=== PATIENT | female | born 1935 | race Caucasian/White ===

== ENCOUNTER 2017-06-20 08:15 | Inpatient (IN) | payer OTHER, MEDICAID ==
[~2017-06-20] VITALS: Ht 167.6 cm; Wt 75.0 kg
[2017-06-20] VITALS (7 sets, daily range): BP systolic 130–169; BP diastolic 68–88; PULSE 58–71; RESP 16–19; TEMP 98.3; Ht 167.6 cm; Wt 75.0 kg
[~2017-06-20 08:15] MED LIST: ASPI-535 PO; LISI40TA9 PO; METF850T PO; OSLT75C PO
[2017-06-20] MEDS ORDERED: SOD CHLORIDE 0.9% 1,000 ML IV STA (08:29)
--- NOTE | 2017-06-20 08:49 | RADRPT ---
PROCEDURE: XR Chest. CLINICAL INDICATION: Syncope. TECHNIQUE: Single frontal view. COMPARISON: 10/01/2014. FINDINGS: The lungs are clear. The heart size is normal. There is calcification in the aorta consistent with atherosclerosis. There is no pleural effusion. There is no pneumothorax. IMPRESSION: 1. Atherosclerosis. 2. Otherwise normal chest radiograph. RPTAT: QQ .Cody Rubio MD, MD Date Time Electronically viewed and signed by .Cody Rubio MD, on 06/20/2017 08:48 .R/
[2017-06-20 09:13] LABS: BASOPHILS % 0.4 % (0.0-2.0); EOSINOPHILS # 0.2 10^3/ul (0.0-0.5); EOSINOPHILS % 3.6 % (0.0-7.0); HEMATOCRIT 36.2 % (37.0-47.0); HEMOGLOBIN 12.3 g/dl (12.0-16.0); LYMPHOCYTES # 0.9 10^3/ul (0.8-2.9); LYMPHOCYTES % 16.8 % (15.0-51.0); MEAN CORPUSCULAR HEMOGLOBIN 31.1 pg (29.0-33.0); MEAN CORPUSCULAR VOLUME 91.4 fl (82.0-101.0); MEAN PLATELET VOLUME 11.3 fl (7.4-10.4); MONOCYTE # 0.4 10^3/ul (0.3-0.9); MONOCYTES % 7.7 % (0.0-11.0); NEUTROPHIL # 3.8 10^3/ul (1.6-7.5); NEUTROPHILS % 71.1 % (39.0-77.0); PLATELET COUNT 177 10^3/UL (140-415); RED BLOOD COUNT 3.96 10^6/ul (4.20-5.40); RED CELL DISTRIBUTION WIDTH 12.1 % (11.5-14.5); WHITE BLOOD COUNT 5.3 10^3/ul (4.8-10.8)
[2017-06-20 09:31] LABS: ANION GAP 15 (8-16); BLOOD UREA NITROGEN 24 mg/dl (7-20); CALCIUM 9.1 mg/dl (8.4-10.2); CARBON DIOXIDE 26 mmol/L (21-31); CHLORIDE 100 mmol/L (97-110); CREATININE 1.23 mg/dl (0.44-1.00); GLUCOSE 177 mg/dl (70-220); POTASSIUM 3.7 mmol/L (3.5-5.1); SODIUM 137 mmol/L (135-144)
[2017-06-20 09:43] LABS: TROPONIN-I < 0.012 ng/ml (0.00-0.12)
--- NOTE | 2017-06-20 09:51 | RADRPT ---
PROCEDURE: CT Brain without contrast. CLINICAL INDICATION: Syncope. TECHNIQUE: A CT of the brain was performed on multidetector high-resolution CT scanner utilizing a xial sections from the skull base through the vertex without contrast. The scan was reviewed in sof t tissue brain and high frequency resolution bone algorithm windows. Images were reviewed on a high -resolution PACS workstation. One or more the following does reduction techniques were utilized: Aut omated exposure control, adjustment of the mA/ or kV according to patient's size, or use of iterativ e reconstruction technique. The exam CTDI = 45.01 mGy and the DLP = 720.23 mGy-cm. COMPARISON: Brain CT 10/01/2014. FINDINGS: The ventricles and sulci are mildly prominent indicative of volume loss. There is no intracranial h emorrhage, mass effect or midline shift. No abnormal intra-axial or extra-axial fluid collections a re seen. The uribe/white matter differentiation is preserved. There is prominent left retrocerebellar CSF space which may represent asymmetric volume loss versus arachnoid cyst. There are mild scattered foci of hypoattenuation in the white matter, which are nonspecific in etiol ogy but likely reflect chronic small vessel ischemic changes. There are mild intracranial vascular calcifications consistent with atherosclerosis. The visualized paranasal sinuses demonstrate mild sc attered mucosal thickening. The mastoid air cells are essentially clear. IMPRESSION: 1. No acute intracranial hemorrhage, transcortical infarction or mass effect. 2. Mild intracranial atherosclerosis and chronic small vessel ischemic changes. 3. Prominent left retrocerebellar CSF space which may represent asymmetric volume loss versus arach noid cyst. 4. Mild generalized cerebral volume loss. RPTAT: JJ .Lavern Zhu MD, MD Date Time Electronically viewed and signed by .Lavern Zhu MD, MD on 06/20/2017 09:51 .N/
[2017-06-20] MEDS ORDERED: ACETAMINOPHEN 325 MG TAB PO PRN (10:00)
[2017-06-20] MEDS ORDERED: ONDANSETRON 4 MG INJ IV PRN ×2 (10:00→15:00)
--- NOTE | 2017-06-20 13:06 | ERD ---
ER Documentation Chief Complaint Chief Complaint Patient SCARLET with complaint of Syncope and Diarrhea x 1 week HPI Patient is an 81-year-old female with diabetes who presents with syncope. The patient was brought in by ambulance. She passed out at home. She has been sick with diarrhea for the past week and has not been eating as much. She hit her head on a lamp when she fell and has a headache. The daughter says "she passed out 3 times today". She has been feeling dizzy. She has no fevers. Her primary doctor is Dr. Gutierrez. ROS All systems reviewed and are negative except as per history of present illness. Medications Home Meds Active Scripts Aspirin Ec (Aspir 81) 81 Mg Tablet.dr, 81 MG PO DAILY for 30 Days, TAB Prov:SYLVIE WU M. 10/04/14 Lisinopril* (Lisinopril*) 40 Mg Tablet, 40 MG PO DAILY for 30 Days, TAB Prov:SYLVIE WU M. 10/04/14 Metformin Hcl* (Metformin Hcl*) 850 Mg Tablet, 850 MG PO WITH BREAKFAST DINNE for 30 Days, TAB Prov:SYLVIE WU . 10/04/14 Discontinued Scripts Oseltamivir Phosphate* (Tamiflu*) 75 Mg Cap, 75 MG PO BID for 3 Days Prov:BRYCEERIKAARNALDO . 10/04/14 Allergies Allergies: Coded Allergies: No Known Allergies (Verified Allergy, Unknown, 10/01/14) PMhx/Soc History of Surgery: Yes (LEFT FORARM APPENDECTOMY ) Anesthesia Reaction: No Hx Neurological Disorder: No Hx Respiratory Disorders: No Hx Cardiac Disorders: Yes (htn) Hx Psychiatric Problems: No Hx Miscellaneous Medical Probl: No (dm, HTN) Hx Alcohol Use: No Hx Substance Use: No Hx Tobacco Use: No Smoking Status: Current every day smoker FmHx Family History: No diabetes Physical Exam Vitals Vital Signs Date Time Temp Pulse Resp B/P Pulse Ox O2 Delivery O2 Flow Rate FiO2 06/20/17 09:30 98.3 68 20 108/68 98 Room Air 06/20/17 08:30 98.3 67 20 158/46 98 Room Air 06/20/17 08:15 98.0 60 20 158/46 100 Physical Exam Const: No acute distress Head: Atraumatic Eyes: Normal Conjunctiva ENT: Normal External Ears, Nose and Mouth. Neck: Full range of motion..~ No meningismus. Resp: Clear to auscultation bilaterally Cardio: Regular rate and rhythm, no murmurs Abd: Soft, non tender, non distended. Normal bowel sounds Skin: No petechiae or rashes Back: No midline or flank tenderness Ext: No cyanosis, or edema Neur: Awake and alert Psych: Normal Mood and Affect Result Diagram: 06/20/17 0840 06/20/17 0840 Results 24 hrs Laboratory Tests Test 06/20/17 08:40 06/20/17 08:42 White Blood Count 5.310^3/ul Red Blood Count 3.9610^6/ul Hemoglobin 12.3g/dl Hematocrit 36.2% Mean Corpuscular Volume 91.4fl Mean Corpuscular Hemoglobin 31.1pg Mean Corpuscular Hemoglobin Concent 34.0g/dl Red Cell Distribution Width 12.1% Platelet Count 30106^3/UL Mean Platelet Volume 11.3fl Neutrophils % 71.1% Lymphocytes % 16.8% Monocytes % 7.7% Eosinophils % 3.6% Basophils % 0.4% Nucleated Red Blood Cells % 0.0/100WBC Neutrophils # 3.810^3/ul Lymphocytes # 0.910^3/ul Monocytes # 0.410^3/ul Eosinophils # 0.210^3/ul Basophils # 0.010^3/ul Nucleated Red Blood Cells # 0.010^3/ul Sodium Level 137mmol/L Potassium Level 3.7mmol/L Chloride Level 100mmol/L Carbon Dioxide Level 26mmol/L Anion Gap 15 Blood Urea Nitrogen 24mg/dl Creatinine 1.23mg/dl Glucose Level 177mg/dl Calcium Level 9.1mg/dl Troponin I < 0.012ng/ml Bedside Glucose 197mg/dL Current Medications Medications (Trade) Dose Ordered Sig/Chandler Route PRN Reason Start Time Stop Time Status Last Admin Dose Admin Sodium Chloride (NS) 1,000 ml @ 1,000 mls/hr Q1H STAT IV 06/20/17 08:29 06/20/17 09:28 DC 06/20/17 08:33 Procedures/MDM EKG read by me: Rate/Rhythm: Regular rate and rhythm at a normal rate Intervals: Normal Impression: No evidence of ischemia or arrhythmia CT brain shows no hemorrhage per radiology. Patient is an 81-year-old female presents with syncope. She will be admitted for fluid resuscitation as I believe the syncope is likely related to dehydration from diarrhea. She will need monitoring to look for ventricular fibrillation or ventricular tachycardia. The patient will be admitted to the panel team. Departure Diagnosis: Primary Impression: Syncope Syncope type: unspecified Qualified Code: R55 - Syncope, unspecified syncope type Condition: Stable YADIEL JOHNSTON MD Jun 20, 2017 13:06
[2017-06-20] MEDS ORDERED: DEXTROSE 50% 50 ML SYRINGE IV PRN ×2 (15:00)
[2017-06-20] MEDS ORDERED: HYDROCODONE/APAP (5/325) TAB PO PRN (15:00)
[2017-06-20] MEDS ORDERED: DOCUSATE SODIUM 100 MG CAP PO PRN (15:00)
[2017-06-20] MEDS ORDERED: ACETAMINOPHEN 650 MG SUPP PR PRN (15:00)
[2017-06-20] MEDS ORDERED: GLUCOSE GEL 15 GRAM TUBE PO PRN ×2 (15:00)
[2017-06-20] MEDS ORDERED: NACL 0.9% 3 ML SYG IV SCH (15:00)
[2017-06-20] MEDS ORDERED: GLUCOSE GEL 15 GRAM TUBE BUCCAL PRN (15:00)
[2017-06-20] MEDS ORDERED: GLUCAGON 1 MG INJ IM PRN (15:00)
--- NOTE | 2017-06-20 15:00 | HP ---
Date/Time of Note Date/Time of Note DATE: 06/20/17 TIME: 14:54 Assessment/Plan VTE Prophylaxis VTE Prophylaxis Intervention: SCD's Assessment/Plan Chief Complaint/Hosp Course 9-year-old female, presenting to the emergency room with dizziness and associated fall 3 episodes over the next 24 hours. 1. Dizziness/Near syncope with fall [address] unremarkable. Initial troponin negative. -At this time, it seems her symptoms are most likely secondary to orthostatic hypotension/possible dehydration vs possible hypoglycemic events as she was not able to eat or drink much last week 2/2 diarrhea unless proven otherwise. -Obtain orthostatic vital signs series. -Obtain 2D echocardiogram, serial troponin and EKG in a.m. -Start IV hydration. 2. Essential hypertension. -Resume home medications. Needs careful review of BP meds dose/frequency on discharge as there is concern of possible positional hypotension episodes. 3. Hyperglycemia with type 2 diabetes. -Add A1c to labs. Accu-Cheks/ISS mild scale/Lantus based on weight. Will monitor glucose trends and will titrate as indicated. 4. Acute kidney injury versus chronic kidney disease. This is likely secondary to possible dehydration. -For now, we will treat with IV fluids and reassess renal function in the morning. -Nephrology consult if indicated. 5.Recent hx of diarrhea/gastroenteritis. No present issues. Prophylaxis: SCDs/at this time patient does not need GI prophylaxis as she is going to be started on a diet. Further recommendations depend on hospital course. Approximately 60 minutes was spent on this history and physical. Patient was seen in collaboration with Dr. Castle. Problems: HPI/ROS Admit Date/Time Admit Date/Time Jun 20, 2017 at 09:39 Hx of Present Illness This is a 79-year-old female with a past medical history of type 2 diabetes, hypertension, who presented to the emergency room after she fell 3 times in the previous 24 hours with dizziness.She reports "being passed out".She is not sure of she had loss of consciousness. Patient has not started any new medicines or engaged in any new activities lately. She has been sick with diarrhea last week and she was not able to drink or eat as much at home. She denied any change in vision, slurred speech, headache, weakness, numbness, or tingling. She denied hitting her head. But she reported hitting her right arm on nearby lamp without any resultant pain and relieved. Patient denied hearing loss, tinnitus, or spinning sensation. She denied chest pain, palpitation, shortness of breath, nausea, vomiting, abdominal pain or cough. Patient denied any fever or chills. Patient had multiple previous episodes of similar complaints with fall in the past for which she was treated for near syncopal events. Initial workup showed negative CT of head for any acute intracranial hemorrhage , infarction or mass-effect. Chest x-ray stable. Vital signs with slightly elevated blood pressure 158/46, otherwise unremarkable. Initial labs unremarkable except for elevated BUN 24/creatinine 1.23. Her initial troponin also was negative. Patient had an arrival blood glucose of 197. EKG without any acute changes. Patient was admitted for further evaluation. ROS 12 point review of system was assessed and is negative other than what is mentioned in the HPI. PMH/Family/Social Past Medical History See HPI Past Surgical History Laparoscopic cholecystectomy. Social History Patient denied history of alcohol, smoking or illicit drug use. Smoking Status: Never smoker Exam/Review of Systems Vital Signs Vitals Vital Signs Date Time Temp Pulse Resp B/P Pulse Ox O2 Delivery O2 Flow Rate FiO2 06/20/17 11:00 98.3 62 20 109/52 99 Room Air Exam Exam General: Well developed,adequately built, female not in any acute distress . HEENT: Normocephalic, Atraumatic, No laceration or hematoma; Eyes: PEERL, Conjunctiva clear, Anicteric sclera Neck: Supple without any lymphadenopathy, nontender, no JVD, no carotid bruits, trachea midline, no thyromegaly Cardiac: S1, S2 auscultated, regular rhythm and rate, no mumurs or gallop Pulmonary: Normal respiratory effort. Chest clear to auscultation bilaterally, no adventitious breath sounds GI: Abdomen normal to inspection. Soft, non tender, non- distended, no masses, no rebound tenderness or guarding. Bowel sounds active on all four quadrants Genitourinary: Deferred Extremities: No cyanosis, clubbing, or edema. Pulses [2+] bilaterally. Full ROM on all four extremities. No focal weakness appreciated. Neurologic: Alert to person, place, time, and situation. Affect appropriate, intact sensation. Skin: Clean,dry, and intact. No ecchymosis, no rashes, or lesions Labs Result Diagram: 06/20/17 0840 06/20/17 0840 Medications Medications Current Medications Aspirin (Halfprin) 81 mg DAILY PO ; Start 06/21/17 at 09:00 Lisinopril (Zestril) 40 mg DAILY PO ; Start 06/21/17 at 09:00 Ondansetron HCl (Zofran Inj) 4 mg Q6H PRN IV NAUSEA AND/OR VOMITING; Start at 15:00; Status UNV Acetaminophen (Tylenol Tab) 650 mg Q6H PRN PO PAIN LEVEL 1-3 OR FEVER; Start 06/20/17 at 15:00; Status UNV Acetaminophen (Tylenol Supp) 650 mg Q6H PRN NV PAIN LEVEL 1-3 OR FEVER; Start 06/20/17 at 15:00; Status UNV Acetaminophen/ Hydrocodone Bitart ([place] (5/325)) 1 tab Q6H PRN PO MODERATE PAIN LEVEL 4-6; Start 06/20/17 at 15:00; Status UNV Docusate Sodium (Colace) 100 mg Q12H PRN PO CONSTIPATION; Start 06/20/17 at 15 :00; Status UNV Miscellaneous Information (* Miscellaneous Pharmacy Order) Discontinue current oral sulfonylur... ONCE ONCE XX ; Start 06/20/17 at 15:00; Stop 06/20/17 at 15:01; Status UNV Diagnostic Test (Pha) (Accu-Chek) 1 ea 02 XX ; Start 06/21/17 at 02:00; Status UNV Insulin Glargine (Lantus) 11 unit DAILY@08 SC ; Start 06/21/17 at 08:00; Status UNV Miscellaneous Information (* Miscellaneous Pharmacy Order) HYPOGLYCEMIA PROTOCOL w... ONCE ONCE XX ; Start 06/20/17 at 15:00; Stop 06/20/17 at 15:01 ; Status UNV Miscellaneous Information (* Miscellaneous Pharmacy Order) Discontinue all previ... ONCE ONCE XX ; Start 06/20/17 at 15:00; Stop 06/20/17 at 15:01; Status UNV Meclizine HCl (Antivert) 12.5 mg TID PO ; Start 06/20/17 at 21:00; Status UNV Diagnostic Test (Pha) (Accu-Chek) 1 ea 02 XX ; Start 06/21/17 at 02:00; Status DANE BEASLEY NP Jun 20, 2017 15:00
[2017-06-20 16:40] LABS: CHOL/HDL RATIO 1.6 RATIO; CREATINE KINASE 87 IU/L (23-200)
[2017-06-20 17:02] LABS: TROPONIN-I < 0.012 ng/ml (0.00-0.12)
[2017-06-20 17:12] LABS: THYROID STIMULATING HORMONE 1.06 MIU/L (0.465-4.680)
[2017-06-20] MEDS: INSULIN ASPART [NOVOLOG] 3 ML PEN SC SCH ×2 (18:45→20:31)
[2017-06-20] MEDS: SOD CHLORIDE 0.9% 1,000 ML IV SCH (20:20)
[2017-06-20] MEDS ORDERED: MECLIZINE 12.5 MG TAB PO SCH (21:00)
[2017-06-20 21:29] LABS: CREATINE KINASE 88 IU/L (23-200)
[2017-06-20 21:49] LABS: TROPONIN-I < 0.012 ng/ml (0.00-0.12)
[2017-06-21] VITALS (13 sets, daily range): BP systolic 90–144; BP diastolic 49–74; PULSE 52–73; RESP 16–18
[2017-06-21] MEDS ORDERED: ACCU-CHEK XX SCH (02:00)
[2017-06-21] MEDS: ACCU-CHEK XX SCH (02:58)
[2017-06-21] MEDS: SOD CHLORIDE 0.9% 1,000 ML IV SCH ×2 (04:20→17:40)
[2017-06-21 06:57] LABS: BASOPHILS % 0.9 % (0.0-2.0); EOSINOPHILS # 0.3 10^3/ul (0.0-0.5); EOSINOPHILS % 6.3 % (0.0-7.0); HEMATOCRIT 33.5 % (37.0-47.0); HEMOGLOBIN 11.1 g/dl (12.0-16.0); LYMPHOCYTES # 1.3 10^3/ul (0.8-2.9); LYMPHOCYTES % 29.4 % (15.0-51.0); MEAN CORPUSCULAR HEMOGLOBIN 30.6 pg (29.0-33.0); MEAN CORPUSCULAR HGB CONC 33.1 g/dl (32.0-37.0); MEAN CORPUSCULAR VOLUME 92.3 fl (82.0-101.0); MEAN PLATELET VOLUME 10.9 fl (7.4-10.4); MONOCYTE # 0.5 10^3/ul (0.3-0.9); MONOCYTES % 11.3 % (0.0-11.0); NEUTROPHIL # 2.2 10^3/ul (1.6-7.5); NEUTROPHILS % 51.9 % (39.0-77.0); PLATELET COUNT 159 10^3/UL (140-415); RED BLOOD COUNT 3.63 10^6/ul (4.20-5.40); RED CELL DISTRIBUTION WIDTH 12.6 % (11.5-14.5); WHITE BLOOD COUNT 4.3 10^3/ul (4.8-10.8)
[2017-06-21 07:47] LABS: ALBUMIN 3.7 g/dl (3.3-4.9); ALBUMIN/GLOBULIN RATIO 1.48; BILIRUBIN,INDIRECT 0.3 mg/dl (0-1.1); BILIRUBIN,TOTAL 0.3 mg/dl (0.2-1.3); CALCIUM 8.4 mg/dl (8.4-10.2); CREATININE 0.82 mg/dl (0.44-1.00); MAGNESIUM 1.7 mg/dl (1.7-2.5); PHOSPHORUS 3.5 mg/dl (2.5-4.9); POTASSIUM 3.5 mmol/L (3.5-5.1); TOTAL PROTEIN 6.2 g/dl (6.1-8.1)
[2017-06-21] MEDS: INSULIN ASPART [NOVOLOG] 3 ML PEN SC SCH ×4 (07:55→20:27)
[2017-06-21] MEDS ORDERED: INSULIN GLARGINE [LANtus] 3 ML PEN SC SCH (08:00)
[2017-06-21] MEDS: ASPIRIN (EC) 81 MG TAB PO SCH (08:43)
[2017-06-21] MEDS: LISINOPRIL 20 MG TAB PO SCH (08:43)
[2017-06-21] MEDS: ACETAMINOPHEN 325 MG TAB PO PRN ×2 (10:17→19:34)
--- NOTE | 2017-06-21 10:24 | DS ---
Date/Time of Note Date/Time of Note DATE: 06/21/17 TIME: 10:22 Discharge Summary Admission/Discharge Info Admit Date/Time Jun 20, 2017 at 09:39 Discharge Date/Time June 21, 2017 Discharge Diagnosis Syncope due to dehydration secondary to gastroenteritis; diabetes mellitus type 2; essential hypertension; status post closed head trauma Patient Condition: Fair Procedures CT scan brain; IV hydration; Hx of Present Illness This is a 79-year-old female with a past medical history of type 2 diabetes, hypertension, who presented to the emergency room after she fell 3 times in the previous 24 hours with dizziness.She reports "being passed out".She is not sure of she had loss of consciousness. Patient has not started any new medicines or engaged in any new activities lately. She has been sick with diarrhea last week and she was not able to drink or eat as much at home. She denied any change in vision, slurred speech, headache, weakness, numbness, or tingling. She denied hitting her head. But she reported hitting her right arm on nearby lamp without any resultant pain and relieved. Patient denied hearing loss, tinnitus, or spinning sensation. She denied chest pain, palpitation, shortness of breath, nausea, vomiting, abdominal pain or cough. Patient denied any fever or chills. Patient had multiple previous episodes of similar complaints with fall in the past for which she was treated for near syncopal events. Initial workup showed negative CT of head for any acute intracranial hemorrhage , infarction or mass-effect. Chest x-ray stable. Vital signs with slightly elevated blood pressure 158/46, otherwise unremarkable. Initial labs unremarkable except for elevated BUN 24/creatinine 1.23. Her initial troponin also was negative. Patient had an arrival blood glucose of 197. EKG without any acute changes. Patient was admitted for further evaluation. Hospital Course 81-year-old female, presenting to the emergency room with dizziness and associated fall 3 episodes over the next 24 hours. 1. Dizziness/Near syncope with fall [address] unremarkable. Initial troponin negative. -At this time, it seems her symptoms are most likely secondary to orthostatic hypotension/possible dehydration vs possible hypoglycemic events as she was not able to eat or drink much last week 2/2 diarrhea unless proven otherwise. -Obtain orthostatic vital signs series. -Obtain 2D echocardiogram, serial troponin and EKG in a.m. -Start IV hydration. 2. Essential hypertension. -Resume home medications. Needs careful review of BP meds dose/frequency on discharge as there is concern of possible positional hypotension episodes. 3. Hyperglycemia with type 2 diabetes. -Add A1c to labs. Accu-Cheks/ISS mild scale/Lantus based on weight. Will monitor glucose trends and will titrate as indicated. 4. Acute kidney injury versus chronic kidney disease. This is likely secondary to possible dehydration. -For now, we will treat with IV fluids and reassess renal function in the morning. -Nephrology consult if indicated. 5.Recent hx of diarrhea/gastroenteritis. No present issues. Prophylaxis: SCDs/at this time patient does not need GI prophylaxis as she is going to be started on a diet. Further recommendations depend on hospital course. Approximately 60 minutes was spent on this history and physical. Patient was seen in collaboration with Dr. Castle. 81-year-old female. She reports that her GI tract symptoms have already resolved. She is feeling significantly better and is now able to get up and move around. She does still have headache after a closed head trauma. Please see the negative CT scan report. At this time due to her being improved she is stable for discharge in improved condition as compared to the time of admission. She has good rehabilitation potential she has no known communicable diseases she is not a hazard to herself or others competent for medical decision -making. She will follow-up with her primary care physician in her [employer] healthcare plan. In 1 week. Home Meds Active Scripts Aspirin Ec (Aspir 81) 81 Mg Tablet.dr, 81 MG PO DAILY for 30 Days, TAB Prov:SYLVIE WU 10/04/14 Lisinopril* (Lisinopril*) 40 Mg Tablet, 40 MG PO DAILY for 30 Days, TAB Prov:SYLVIE WU. 10/04/14 Metformin Hcl* (Metformin Hcl*) 850 Mg Tablet, 850 MG PO WITH BREAKFAST DINNE for 30 Days, TAB Prov:SYLVIE WU. 10/04/14 Discontinued Scripts Oseltamivir Phosphate* (Tamiflu*) 75 Mg Cap, 75 MG PO BID for 3 Days Prov:SYLVIE WU 10/04/14 Primary Care Provider Not On Staff Doctor Time spent on discharge: > 30 minutes Pending Labs Laboratory Tests Test 06/20/17 15:18 06/20/17 17:57 06/20/17 20:22 06/20/17 20:48 Hemoglobin A1c 7.0% (0-5.9) Creatine Kinase 87IU/L (23-200) 88IU/L (23-200) Creatine Kinase Index 2.0 1.8 Creatinine Kinase MB (Mass) 1.70ng/ml (0.0-2.4) 1.60ng/ml (0.0-2.4) Troponin I < 0.012ng/ml (0.00-0.12) < 0.012ng/ml (0.00-0.12) Triglycerides Level 115mg/dl (0-149) Cholesterol Level 69mg/dl (100-200) LDL Cholesterol, Calculated 5mg/dl HDL Cholesterol 41mg/dl (33-92) Cholesterol/HDL Ratio 1.6RATIO Thyroid Stimulating Hormone (TSH) 1.060MIU/L (0.465-4.680) Bedside Glucose 270mg/dL (70-220) 188mg/dL (70-220) Test 06/21/17 02:53 06/21/17 06:23 06/21/17 08:41 Bedside Glucose 77mg/dL (70-220) 86mg/dL (70-220) White Blood Count 4.310^3/ul (4.8-10.8) Red Blood Count 3.6310^6/ul (4.20-5.40) Hemoglobin 11.1g/dl (12.0-16.0) Hematocrit 33.5% (37.0-47.0) Mean Corpuscular Volume 92.3fl (82.0-101.0) Mean Corpuscular Hemoglobin 30.6pg (29.0-33.0) Mean Corpuscular Hemoglobin Concent 33.1g/dl (32.0-37.0) Red Cell Distribution Width 12.6% (11.5-14.5) Platelet Count 46437^3/UL (140-415) Mean Platelet Volume 10.9fl (7.4-10.4) Neutrophils % 51.9% (39.0-77.0) Lymphocytes % 29.4% (15.0-51.0) Monocytes % 11.3% (0.0-11.0) Eosinophils % 6.3% (0.0-7.0) Basophils % 0.9% (0.0-2.0) Nucleated Red Blood Cells % 0.0/100WBC (0.0-0.0) Neutrophils # 2.210^3/ul (1.6-7.5) Lymphocytes # 1.310^3/ul (0.8-2.9) Monocytes # 0.510^3/ul (0.3-0.9) Eosinophils # 0.310^3/ul (0.0-0.5) Basophils # 0.010^3/ul (0.0-0.1) Nucleated Red Blood Cells # 0.010^3/ul (0.0-0.0) Sodium Level 143mmol/L (135-144) Potassium Level 3.5mmol/L (3.5-5.1) Chloride Level 108mmol/L (97-110) Carbon Dioxide Level 26mmol/L (21-31) Anion Gap 13 (8-16) Blood Urea Nitrogen 13mg/dl (7-20) Creatinine 0.82mg/dl (0.44-1.00) Glucose Level 75mg/dl (70-220) Calcium Level 8.4mg/dl (8.4-10.2) Phosphorus Level 3.5mg/dl (2.5-4.9) Magnesium Level 1.7mg/dl (1.7-2.5) Total Bilirubin 0.3mg/dl (0.2-1.3) Direct Bilirubin 0.00mg/dl (0.00-0.20) Indirect Bilirubin 0.3mg/dl (0-1.1) Aspartate Amino Transf (AST/SGOT) 20IU/L (15-46) Alanine Aminotransferase (ALT/SGPT) 28IU/L (13-69) Alkaline Phosphatase 54IU/L (42-121) Total Protein 6.2g/dl (6.1-8.1) Albumin 3.7g/dl (3.3-4.9) Globulin 2.50g/dl (1.3-3.2) Albumin/Globulin Ratio 1.48 AJAY MEDELLIN MD Jun 21, 2017 10:24
--- NOTE | 2017-06-21 10:25 | PDOCDIS ---
Discharge Instructions DIAGNOSIS Discharge Diagnosis Syncope due to dehydration secondary to gastroenteritis; diabetes mellitus type 2; essential hypertension; status post closed head trauma CONDITION Patient Condition: Fair HOME CARE INSTRUCTIONS: Special Diet: Diabetic diet ACTIVITY: Activity Restrictions: Slowly Increase Activity Do not operate Power Tool FOLLOW UP/APPOINTMENTS Follow-up Plan With primary care physician in 1 week SCHOOL/WORK RELEASE May return to School/Work with: With Restrictions AJAY MEDELLIN MD Jun 21, 2017 10:25
[2017-06-21] MEDS ORDERED: LACTATED RINGER'S 500 ML IV ONE (10:30)
--- NOTE | 2017-06-21 12:56 | RADRPT ---
Vent Rate: 58 bpm RR Interval: 0 msec IL Interval: 190 msec QRS Duration: 98 msec QT Interval: 430 msec QTC Interval: 422 msec P-R-T [place]: 55 - 36 - 106 degrees Sinus bradycardia Abnormal QRS-T angle, consider primary T wave abnormality Abnormal ECG Electronically Signed By: Edy Pierre [id number]
--- NOTE | 2017-06-21 16:24 | RADRPT ---
Echocardiogram Report Patient Name: VEE NUNEZ Gender: Female Date: 1935 Study Date: 20-Jun-2017 Credit Authorizer: [facility] Location: 3303-A Ref. Physician: DANE NAVARRO Quality: Adequate Procedures: Transthoracic echocardiogram with complete 2D, M-Mode, and doppler examination. Indications: Dizziness. 2D/M Mode Doppler Measurement Value Normal Ranges Measurement Value Normal Ranges LVIDd 2D 3.7 3.5 - 5.6 cm AV Peak [place] 1.2 m/sec LVIDs 2D 2.4 2.1 - 4.1 cm AV Peak PG 6.0 mmHg FS 2D 34.8 % LVOT Peak [place] 0.8 m/sec LVPWd 2D 1.0 0.6 - 1.1 cm LVOT Peak PG 3.0 mmHg IVSd 2D 1.5 0.6 - 1.1 cm MV E Peak [place] 1.0 m/sec IVS/LVPW 2D 1.5 MV A Peak [place] 1.1 m/sec AoR Diam 2D 2.6 2.0 - 3.7 cm MV E/A 1.0 LA/Ao 2D 1 0 - 1 MV Decel Time 194 msec EDV 2D 51.1 cm3 MV E/A 1.0 ESV 2D 14.2 cm3 TR Peak Clyde 2.4 m/sec LA Dimen 2D 3.2 2.3 - 4.0 cm TR Peak PG 22.0 mmHg RVSP 25.0 mmHg Findings Left Ventricle: Normal left ventricular systolic function. Normal left ventricular cavity size. Sigmoid septum. Mild concentric left ventricular hypertrophy. Ejection fraction is visually estimated at 6065 %. Tissue Doppler/Mitral Doppler indices are consistent with impaired relaxation (Stage I diastolic dysfunction). Right Ventricle: Normal right ventricular size. Normal right ventricular systolic function. Left Atrium: The left atrium is normal in size. Right Atrium: The right atrium is normal in size. Mitral Valve: Mild mitral leaflet calcification. Mild mitral annular calcification. Trace mitral regurgitation. Aortic Valve: No significant aortic stenosis. Aortic cusps appear mildly calcified. Trace aortic valve regurgitation. Tricuspid Valve: Normal appearance of the tricuspid valve. Estimated peak PA systolic pressure 25 mmHg. There is trace tricuspid regurgitation. Pulmonic Valve: Pulmonic valve not well visualized. There is trace pulmonic regurgitation. Pericardium: Normal pericardium with no significant pericardial effusion. Aorta: Normal aortic root. IVC: Normal size and normal respiratory collapse consistent with normal right atrial pressure. Conclusions 1.The left ventricle is normal in size and systolic function. 2.Estimated left ventricular ejection fraction of 60-65%. 3.Mild concentric left ventricular hypertrophy. Grade 1 diastolic dysfunction. Electronically Signed By: Kade Malloy 21-Jun-2017 16:23:45 -0700 Patient Name: VEE NUNEZ Study Date: 20-Jun-[id number]
[2017-06-22] VITALS (11 sets, daily range): BP systolic 112–146; BP diastolic 59–66; PULSE 50–58; RESP 16–17
[2017-06-22] MEDS: ACCU-CHEK XX SCH (01:19)
[2017-06-22] MEDS: SOD CHLORIDE 0.9% 1,000 ML IV SCH ×2 (04:55→20:20)
[2017-06-22] MEDS: INSULIN ASPART [NOVOLOG] 3 ML PEN SC SCH ×4 (07:55→21:00)
[2017-06-22] MEDS: ASPIRIN (EC) 81 MG TAB PO SCH (08:16)
[2017-06-22] MEDS: LISINOPRIL 20 MG TAB PO SCH (08:16)
[2017-06-22] MEDS: ACETAMINOPHEN 325 MG TAB PO PRN (11:24)
--- NOTE | 2017-06-22 12:55 | PN ---
Date/Time of Note Date/Time of Note DATE: 06/22/17 TIME: 12:53 Assessment/Plan VTE Prophylaxis VTE Prophylaxis Intervention: other Lines/Catheters IV [facility]from [facility] Urinary Cath still in place: No Assessment/Plan Chief Complaint/Hosp Course 81-year-old female, presenting to the emergency room with dizziness and associated fall 3 episodes over the next 24 hours. 1. Dizziness/Near syncope with fall [address] unremarkable. Initial troponin negative. -At this time, it seems her symptoms are most likely secondary to orthostatic hypotension/possible dehydration vs possible hypoglycemic events as she was not able to eat or drink much last week 2/2 diarrhea unless proven otherwise. -Obtain orthostatic vital signs series. -Obtain 2D echocardiogram, serial troponin and EKG in a.m. -Start IV hydration. 2. Essential hypertension. -Resume home medications. Needs careful review of BP meds dose/frequency on discharge as there is concern of possible positional hypotension episodes. 3. Hyperglycemia with type 2 diabetes. -Add A1c to labs. Accu-Cheks/ISS mild scale/Lantus based on weight. Will monitor glucose trends and will titrate as indicated. 4. Acute kidney injury versus chronic kidney disease. This is likely secondary to possible dehydration. -For now, we will treat with IV fluids and reassess renal function in the morning. -Nephrology consult if indicated. 5.Recent hx of diarrhea/gastroenteritis. No present issues. Prophylaxis: SCDs/at this time patient does not need GI prophylaxis as she is going to be started on a diet. Further recommendations depend on hospital course. Approximately 60 minutes was spent on this history and physical. Patient was seen in collaboration with Dr. Castle. 81-year-old female. She reports that her GI tract symptoms have already resolved. She is feeling significantly better and is now able to get up and move around. She does still have headache after a closed head trauma. Please see the negative CT scan report. At this time due to her being improved she is stable for discharge in improved condition as compared to the time of admission. She has good rehabilitation potential she has no known communicable diseases she is not a hazard to herself or others competent for medical decision -making. She will follow-up with her primary care physician in her [employer] healthcare plan. In 1 week. Problems: (1) Syncope Status: Acute Comment: There is been no further episodes. She did have some dizziness but does not have orthostasis after the nursing staff very carefully documented this. She could not go home yesterday as she is somewhat frail (please see physical therapy notes). Her daughter who is the one who assists her was at work yesterday and as such could not take her home. At this time she is ready for discharge Qualifiers: Syncope type: unspecified Qualified Code: R55 - Syncope, unspecified syncope type (2) Essential hypertension Status: Chronic Comment: Adequate control without overcontrolled (3) Diastolic dysfunction Status: Chronic Comment: Stable on medical therapy (4) Acute kidney injury (nontraumatic) Status: Chronic Comment: Resolved (5) Diabetes mellitus type 2 in nonobese Status: Chronic Comment: Adequate control Subjective 24 Hr Interval Summary Free Text/Dictation Please see physical therapy notes. The patient reports she has a modest headache but no history of migraines. She is informs me that she cannot go home unless her daughter brings her clothing. Constitutional: no complaints Eyes: no complaints ENT: no complaints Respiratory: no complaints Cardiovascular: no complaints Gastrointestinal: no complaints Neurologic: headache Exam/Review of Systems Vital Signs Vitals Vital Signs Date Time Temp Pulse Resp B/P Pulse Ox O2 Delivery O2 Flow Rate FiO2 06/22/17 11:35 97.7 58 17 112/66 97 06/21/17 11:00 Room Air Intake and Output 06/21/17 06/21/17 06/22/17 15:00 23:00 07:00 Intake Total 950 ml 500 ml Balance 950 ml 500 ml Exam Constitutional: alert, oriented Neck: non-tender, supple Respiratory: clear to auscultation, normal air movement Cardiovascular: nl pulses, regular rate and rhythm Gastrointestinal: nl liver, spleen, non-tender, soft Results Result Diagram: 06/21/17 0623 06/21/17 0623 Results 24 hrs Laboratory Tests Test 06/21/17 17:56 06/21/17 19:37 06/22/17 08:23 06/22/17 11:23 Bedside Glucose 78 109 74 163 Medications Medications Current Medications Aspirin (Halfprin) 81 mg DAILY PO Last administered on 06/22/17t 08:16; Admin Dose 81 MG; Start 06/21/17 at 09:00 Lisinopril (Zestril) 40 mg DAILY PO Last administered on 06/21/17 08:43; Admin Dose 40 MG; Start 06/21/17 at 09:00 Ondansetron HCl (Zofran Inj) 4 mg Q6H PRN IV NAUSEA AND/OR VOMITING; Start at 15:00 Acetaminophen (Tylenol Tab) 650 mg Q6H PRN PO PAIN LEVEL 1-3 OR FEVER Last administered on 06/22/17 11:24; Admin Dose 650 MG; Start 06/20/17 at 15:00 Acetaminophen (Tylenol Supp) [address] PAIN LEVEL 1-3 OR FEVER; Start 06/20/17 at 15:00 Acetaminophen/ Hydrocodone Bitart ([place] (5/325)) 1 tab Q6H PRN PO MODERATE PAIN LEVEL 4-6; Start 06/20/17 at 15:00 Docusate Sodium (Colace) 100 mg Q12H PRN PO CONSTIPATION; Start 06/20/17 at 15 :00 Diagnostic Test (Pha) 1 ea 1 ea 02 XX Last administered on 06/21/17 02:58; Admin Dose 1 EA; Start 06/21/17 at 02:00 Sodium Chloride (NS) 1,000 ml @ 75 mls/hr [id number] IV Last administered on 20:20; Admin Dose 75 MLS/HR; Start 06/20/17 at 15:00 Miscellaneous Information 1 ea NOTE XX ; Start 06/20/17 at 15:00 Glucose (Glutose) 15 gm Q15M PRN PO DECREASED GLUCOSE; Start 06/20/17 at 15:00 Glucose (Glutose) 22.5 gm Q15M PRN PO DECREASED GLUCOSE; Start 06/20/17 at 15: 00 Dextrose (D50w Syringe) 25 ml Q15M PRN IV DECREASED GLUCOSE; Start 06/20/17 at 15:00 Dextrose (D50w Syringe) 50 ml Q15M PRN IV DECREASED GLUCOSE; Start 06/20/17 at 15:00 Glucagon (Glucagen) 1 mg Q15M PRN IM DECREASED GLUCOSE; Start 06/20/17 at 15: 00 Glucose (Glutose) 15 gm Q15M PRN BUCCAL DECREASED GLUCOSE; Start 06/20/17 at 15:00 AJAY MEDELLIN MD Jun 22, 2017 12:55
[2017-06-23] VITALS (8 sets, daily range): BP systolic 137–153; BP diastolic 63–85; PULSE 52–69; RESP 16–17
[2017-06-23] MEDS: ACCU-CHEK XX SCH (02:00)
[2017-06-23] MEDS: INSULIN ASPART [NOVOLOG] 3 ML PEN SC SCH ×2 (07:55→12:44)
[2017-06-23] MEDS: ASPIRIN (EC) 81 MG TAB PO SCH (08:37)
[2017-06-23] MEDS: LISINOPRIL 20 MG TAB PO SCH (08:38)
[2017-06-23] MEDS: SOD CHLORIDE 0.9% 1,000 ML IV SCH (09:40)
[2017-06-23] MEDS: ACETAMINOPHEN 325 MG TAB PO PRN ×2 (10:30→14:52)
--- NOTE | 2017-06-23 15:15 | DS ---
Date/Time of Note Date/Time of Note DATE: 06/23/17 TIME: 15:13 Discharge Summary Admission/Discharge Info Admit Date/Time Jun 20, 2017 at 09:39 Discharge Date/Time Discharge Diagnosis Near syncope due to dehydration versus orthostatic hypotension. Diabetes mellitus type 2 Essential hypertension DL, secondary to dehydration but it resolved. Patient Condition: Stable Procedures 06/20/2017. CT brain without contrast. IMPRESSION: 1. No acute intracranial hemorrhage, transcortical infarction or mass effect. 2. Mild intracranial atherosclerosis and chronic small vessel ischemic changes. 3. Prominent left retrocerebellar CSF space which may represent asymmetric volume loss versus arachnoid cyst. 4. Mild generalized cerebral volume loss. Hx of Present Illness This is a 79-year-old female with a past medical history of type 2 diabetes, hypertension, who presented to the emergency room after she fell 3 times in the previous 24 hours with dizziness.She reports "being passed out".She is not sure of she had loss of consciousness. Patient has not started any new medicines or engaged in any new activities lately. She has been sick with diarrhea last week and she was not able to drink or eat as much at home. She denied any change in vision, slurred speech, headache, weakness, numbness, or tingling. She denied hitting her head. But she reported hitting her right arm on nearby lamp without any resultant pain and relieved. Patient denied hearing loss, tinnitus, or spinning sensation. She denied chest pain, palpitation, shortness of breath, nausea, vomiting, abdominal pain or cough. Patient denied any fever or chills. Patient had multiple previous episodes of similar complaints with fall in the past for which she was treated for near syncopal events. Initial workup showed negative CT of head for any acute intracranial hemorrhage , infarction or mass-effect. Chest x-ray stable. Vital signs with slightly elevated blood pressure 158/46, otherwise unremarkable. Initial labs unremarkable except for elevated BUN 24/creatinine 1.23. Her initial troponin also was negative. Patient had an arrival blood glucose of 197. EKG without any acute changes. Patient was admitted for further evaluation. Hospital Course Patient did not have any diarrhea in-house. Patient had negative CT. Her echocardiogram with preserved ejection fraction. She was ruled out for ACS. AKA secondary to possible dehydration which was resolved with IV fluids. Her dizziness also improved with IV fluids. It is likely that patient symptoms are secondary to possible dehydration versus possible orthostatic hypotension. She was then evaluated by physical therapy. Patient was cleared for ambulation. There was also recommendation patient to provide home health and frontwheel walker upon discharge. At this time, there is no further inpatient workup indicated and patient is medically stable for discharge with outpatient PCP follow-up. Disposition: Home with home health PT. Patient was also recommended to have outpatient ENT follow-up if her symptoms recur. Patient and family verbalized discharge instructions. Approximately 60 minutes was spent in coordinating the discharge on this patient. Patient was seen in collaboration with . Home Meds Active Scripts Aspirin Ec (Aspir 81) 81 Mg Tablet.dr, 81 MG PO DAILY for 30 Days, TAB Prov:SYLVIE WU. 10/04/14 Lisinopril* (Lisinopril*) 40 Mg Tablet, 40 MG PO DAILY for 30 Days, TAB Prov:SYLVIE WU. 10/04/14 Metformin Hcl* (Metformin Hcl*) 850 Mg Tablet, 850 MG PO WITH BREAKFAST DINNE for 30 Days, TAB Prov:SYLVIE WU. 10/04/14 Discontinued Scripts Oseltamivir Phosphate* (Tamiflu*) 75 Mg Cap, 75 MG PO BID for 3 Days Prov:SYLVIE WU. 10/04/14 Follow-up Plan 1.Follow up with primary care physician in 1 week If you don't have one please let someone know, we can give you resources that may help you pick one. You may also call your insurance company to assign one to you. Review your medication list with your nurse before leaving and if you need new prescriptions please let your nurse know. I may have made changes to your home medications or given you new prescriptions, please let your primary doctor know as well. Stay compliant with your medications and report any side effects to your PCP or pharmacist. Return to the ER if you have any concerns and cannot reach your doctors or call your insurance company, they usually have a nurse that can help you. 2. Call 911 or go to the nearest emergency room if experiencing loss of consciousness, dizziness, chest pain, shortness of breath, vomiting/abdominal pain, speech difficulties, motor weakness or any unusual symptoms. 3. You may also benefit from outpatient ENT evaluation if your symptoms recur. Primary Care Provider Not On Staff Doctor Pending Labs Laboratory Tests Test 06/22/17 16:42 06/22/17 20:50 06/23/17 08:36 06/23/17 12:42 Bedside Glucose 138mg/dL (70-220) 174mg/dL (70-220) 114mg/dL (70-220) 224mg/dL (70-220) DANE NAVARRO NP Jun 23, 2017 15:15
== END 2017-06-23 14:57 | disposition home health service (06) | DRG 684 ==
LOC: E/R 08:15 → MS3 09:39 → TEL 16:51
PROVIDERS: ADMIT Internal Medicine; ATTEND Internal Medicine
DX: N17.9 Acute kidney failure, unspecified (principal); E11.22 Type 2 diabetes mellitus with diabetic chronic kidney disease; E11.65 Type 2 diabetes mellitus with hyperglycemia; E86.0 Dehydration; S09.90XA Unspecified injury of head, initial encounter; I12.9 Hypertensive chronic kidney disease with stage 1 through stage 4 chronic kidney disease, or unspecified chronic kidney disease; N18.9 Chronic kidney disease, unspecified; I95.1 Orthostatic hypotension; W22.8XXA Striking against or struck by other objects, initial encounter; Y93.9 Activity, unspecified; Y92.89 Other specified places as the place of occurrence of the external cause; Y99.8 Other external cause status; Z79.4 Long term (current) use of insulin
CPT/HCPCS: 36415; 70450; 71010; 80048; 80053; 80061; 82550; 82553; 82962; 83036; 83735; 84100; 84443; 84484; 85025; 93005; 93306; 97162; J1815; J7030; J7120

== ENCOUNTER 2018-03-10 14:56 | Inpatient (IN) | END 2018-03-13 12:08 | disposition home or self-care (01) | DRG 336 ==

== ENCOUNTER 2018-03-14 23:12 | Inpatient (IN) | END 2018-03-17 16:35 | disposition home health service (06) | DRG 389 ==

== ENCOUNTER 2018-10-18 14:41 | Inpatient (IN) | payer OTHER ==
[~2018-10-18] VITALS: Ht 154.9 cm; Wt 45.7 kg
[~2018-10-18 14:41] MED LIST changes: -ASPI-535 PO; +DAPA5TAB PO; +LINA5TAB PO; -LISI40TA9 PO; +LOSA1TAB25 PO; +METF100010 PO; -METF850T PO; -OSLT75C PO
[2018-10-18] MEDS ORDERED: ONDANSETRON 4 MG INJ IV STA ×2 (14:58→16:32)
[2018-10-18] MEDS ORDERED: HYDROmorphONE 1 MG/ML SYG IV STA ×2 (14:58→16:32)
[2018-10-18] MEDS ORDERED: SOD CHLORIDE 0.9% 500 ML IV STA (14:58)
--- NOTE | 2018-10-18 15:15 | ERD ---
ER Documentation Chief Complaint Chief Complaint fall while in bathroom complaints of low back pain. ? loc HPI This is an 82-year-old female with a history of dementia who is a very bad short-term memory. The patient says that she fell after taking a shower. The daughter is at bedside and said that the patient called her telling her that she fell in the bathroom. It is unknown if she was syncopal or not. The patient said that she had fallen in her low back hurt. When the daughter got to the house she found the patient sitting in a chair and was in obvious pain. She then started vomiting a few times nonbilious and nonbloody. The patient is complaining of pain in her low back is radiating around to the front of the abd omen. She also states that when she fell then woke up on the floor she stood up and some water came out of her vagina.. She has no saddle anesthesia no weakness in the legs ROS All systems reviewed and are negative except as per history of present illness. Medications Home Meds Reported Medications Losartan-Hydrochlorothiazide (Losartan-HCTZ) 100-25 Mg Tab, 1 TAB PO DAILY, TAB 03/10/18 Dapagliflozin Propanediol (Farxiga) 5 Mg Tablet, 5 MG PO DAILY, #30 TAB 03/10/18 Metformin Hcl* (Metformin Hcl*) 1,000 Mg Tablet, 1000 MG PO WITH BREAKFAST DINNE, #60 TAB 03/10/18 Linagliptin (TRADJENTA) 5 Mg Tablet, 5 MG PO DAILY, TAB 03/10/18 Allergies Allergies: Coded Allergies: No Known Allergies (Verified Allergy, Unknown, 10/18/18) PMhx/Soc History of Surgery: Yes (ELVIA TRAN(2011), LYSIS OF ADHESION(02/2018)) Anesthesia Reaction: No Hx Neurological Disorder: No Hx Respiratory Disorders: No Hx Cardiac Disorders: Yes (HTN) Hx Psychiatric Problems: No Hx Miscellaneous Medical Probl: Yes (ANITA HARDIN) Hx Alcohol Use: No Hx Substance Use: No Hx Tobacco Use: No Smoking Status: Never smoker FmHx Family History: No coronary disease Physical Exam Vitals Vital Signs Date Temp Pulse Resp B/P (MAP) Pulse Ox O2 O2 Flow FiO2 Time Delivery Rate 10/18/18 98.0 71 20 144/99 98 15:40 (114) 10/18/18 98.0 83 20 158/67 98 14:48 (97) Physical Exam Const: Well-developed, well-nourished Head: Atraumatic, normocephalic Eyes: Normal Conjunctiva, PERRLA, EOMI, normal sclera, no nystagmus ENT: Normal External Ears, Nose and Mouth, moist mucus membranes. Neck: Full range of motion. No meningismus, no lymphadenopathy. Resp: Clear to auscultation bilaterally, no wheezing, rhonchi, rales Cardio: Regular rate and rhythm, no murmurs, S1 S2 present Abd: Soft, non tender x 4, non distended. Normal bowel sounds, no guarding or rebound, no pulsitile abdominal masses or bruits Skin: No petechiae or rashes, no ecchymosis , no maculopapular rash Back: And bilateral lumbar paraspinal tenderness, negative straight leg test, no saddle anesthesia Ext: No cyanosis, or edema, FROM x 4, normal inspection, neurovascularly intact x 4 Neur: Awake and alert, STR 5/5 x 4, sensation intact x 4, no focal findings, cerebellum intact Psych: Normal Mood and Affect Result Diagram: 10/18/18 1539 10/18/18 1539 Results 24 hrs Laboratory Tests Test 10/18/18 15:39 White Blood Count 14.1 10^3/ul Red Blood Count 4.22 10^6/ul Hemoglobin 13.1 g/dl Hematocrit 38.5 % Mean Corpuscular Volume 91.2 fl Mean Corpuscular Hemoglobin 31.0 pg Mean Corpuscular Hemoglobin Concent 34.0 g/dl Red Cell Distribution Width 11.9 % Platelet Count 212 10^3/UL Mean Platelet Volume 10.4 fl Immature Granulocytes % 0.600 % Neutrophils % 90.8 % Lymphocytes % 4.0 % Monocytes % 4.2 % Eosinophils % 0.1 % Basophils % 0.3 % Nucleated Red Blood Cells % 0.0 /100WBC Immature Granulocytes # 0.090 10^3/ul Neutrophils # 12.8 10^3/ul Lymphocytes # 0.6 10^3/ul Monocytes # 0.6 10^3/ul Eosinophils # 0.0 10^3/ul Basophils # 0.0 10^3/ul Nucleated Red Blood Cells # 0.0 10^3/ul Sodium Level 136 mmol/L Potassium Level 3.8 mmol/L Chloride Level 96 mmol/L Carbon Dioxide Level 27 mmol/L Anion Gap 13 Blood Urea Nitrogen 35 mg/dl Creatinine 1.03 mg/dl Est Glomerular Filtrat Rate mL/min mL/min Glucose Level 337 mg/dl Calcium Level 10.0 mg/dl Troponin I < 0.012 ng/ml Current Medications Medications Dose Sig/Chandler Start Time Status Last (Trade) Ordered Route PRN Stop Time Admin Dose Reason Admin Sodium 500 ml @ Q1H STAT 10/18/18 DC 10/18/18 Chloride 500 mls/hr IV 14:58 15:34 10/18/18 15:57 0.5 mg ONCE STAT 10/18/18 DC 10/18/18 Hydromorphone IV 14:58 15:35 HCl 10/18/18 15:00 (Dilaudid) Ondansetron 4 mg ONCE STAT 10/18/18 DC 10/18/18 HCl (Zofran IV 14:58 15:34 Inj) 10/18/18 15:00 0.5 mg ONCE STAT 10/18/18 DC 10/18/18 Hydromorphone IV 16:32 16:42 HCl 10/18/18 16:33 (Dilaudid) Ondansetron 4 mg ONCE STAT 10/18/18 DC 10/18/18 HCl (Zofran IV 16:32 16:42 Inj) 10/18/18 16:33 Procedures/MDM EKG: Rate/Rhythm: Normal Sinus Rhythm,NL intervals QRS, ST, QT: NORMAL SD, QRS, QT] Impression: NORMAL EKG Patient: VEE NUNEZ : 1935 Age: 82 Sex: F [id number] DOS: 10/18/18 1458 Ordering MD: SANTIAGO THAKKAR DO Location: E/R Room/Bed: PROCEDURE: XR Chest. CLINICAL INDICATION: Syncope TECHNIQUE: Frontal chest x-ray was obtained. COMPARISON: Chest x-ray October 01, 2016 FINDINGS: The heart is not enlarged. Mediastinum is not widened. There is calcified plaque in the wall of the aorta. No hilar masses seen. Lungs are clear of any infiltrates. There is no effusion or pneumothorax. The osseous structures appear normal. IMPRESSION: No evidence for active cardiopulmonary disease. .Doug Lima MD, MD Date Time Electronically viewed and signed by .Doug Lima MD, MD on 10/18/2018 15:42 .A/ CC: SANTIAGO THAKKAR DO [id number] Ordering MD: SANTIAGO THAKKAR DO Location: E/R Room/Bed: PROCEDURE: CT Head Without Intravenous Contrast CLINICAL INDICATION: Syncope. TECHNIQUE: Axial computed tomography images of the head/brain without intravenous contrast. Sagittal and coronal reformatted images were created and reviewed. CTDIvol (mGy) = 39.64; total DLP (mGy-cm) = 634.23. This CT exam was performed using one or more of the following dose reduction techniques: automated exposure control, adjustment of the mA and/or kV according to patient size, and/or use of iterative reconstruction technique. DICOM images are available. COMPARISON: 06/20/2017 FINDINGS: BRAIN: Atrophy and chronic microangiopathic white matter disease noted. No intracranial hemorrhage. No acute infarct demonstrated. VENTRICLES: Unremarkable. No ventriculomegaly. BONES/JOINTS: Unremarkable. No acute fracture. SOFT TISSUES: Unremarkable. SINUSES: Unremarkable as visualized. No acute sinusitis. MASTOID AIR CELLS: Unremarkable as visualized. No mastoid effusion. IMPRESSION: 1. Chronic intracranial changes are present, as above. 2. No acute intracranial abnormality demonstrated. 3. There is no significant interval change from the previous study. RPTAT: [facility] Dipika Banegas Physician Date Time Electronically viewed and signed by Dipika Banegas Physician Funeral Prearrangement Counselor on 10/18/2018 16:41 RmC/ CC: SANTIAGO THAKKAR DO [id number] [place] [id number] [place] [id number] Radiology Main Line: [phone] DIAGNOSTIC IMAGING REPORT Patient: VEE NUNEZ : 1935 Age: 82 Sex: F MR #: [id number] DOS: 10/18/18 1458 Ordering MD: SANTIAGO THAKKAR DO Location: E/R Room/Bed: PROCEDURE: CT Lumbar Spine Without Intravenous Contrast CLINICAL INDICATION: Trauma. Fall. TECHNIQUE: Axial computed tomography images of the lumbar spine without intravenous contrast. Sagittal and coronal reformatted images were created and reviewed. CTDIvol (mGy) = 16.07; total DLP (mGy-cm) = 393.00. This CT exam was performed using one or more of the following dose reduction techniques: automated exposure control, adjustment of the mA and/or kV according to patient size, and/or use of iterative reconstruction technique. DICOM images are available. COMPARISON: None FINDINGS: VERTEBRAE: There is acute moderate compression fracture of the L1 vertebral body. Vertebral body heights are otherwise preserved. No additional compression fractures are noted. 3 mm anterior subluxation of L4 on L5, secondary to degeneration of the facet joints. DISCS/SPINAL CANAL/NEURAL FORAMINA: There is mild posterior bulging of the L1 cortex causing mild spinal canal stenosis. No retropulsed bone fragments demonstrated. Degenerative disc changes with vacuum disc phenomenon at L5-S1. Mild posterior disc bulge at L4-5. Lumbar intervertebral discs are otherwise unremarkable as demonstrated. SOFT TISSUES: Unremarkable. VASCULATURE: The abdominal aorta is atherosclerotic. No aneurysm. IMPRESSION: 1. There is acute moderate compression fracture of the L1 vertebral body. There is mild posterior bulging of the L1 cortex causing mild spinal canal stenosis. 2. No additional fractures are noted. RPTAT: [facility] Dipika Banegas Physician Funeral Prearrangement Counselor Date Time Electronically viewed and signed by Dipika Banegas Physician Funeral Prearrangement Counselor on 10/18/2018 16:47 RmC/ CC: SANTIAGO THAKKAR DO [id number] This patient has an acute L1 vertebral compression fracture. She will be admitted for pain control. Is also unknown if she was syncopal or had a fall. Patient has dementia and does not give a good history says even remember the fall at this point. Will observe and have her on the cardiac monitors do a syncopal workup as well to ensure no other issues are underlying the fall. Departure Diagnosis: Primary Impression: Compression fracture of L1 lumbar vertebra Encounter type: initial encounter Fracture type: closed Qualified Codes: S32.010A - Wedge compression fracture of first lumbar vertebra, initial encounter for closed fracture Additional Impressions: Fall Encounter type: initial encounter Qualified Codes: W19.XXXA - Unspecified fall, initial encounter Syncope Syncope type: unspecified Qualified Codes: R55 - Syncope and collapse Condition: Stable SANTIAGO THAKKAR DO Oct 18, 2018 15:15
[2018-10-18] MEDS ORDERED: SOD CHLORIDE 0.9% 1,000 ML IV SCH (17:48)
[2018-10-18] MEDS ORDERED: ONDANSETRON 4 MG INJ IV PRN (18:00)
[2018-10-18] MEDS ORDERED: ACETAMINOPHEN 325 MG TAB PO PRN ×2 (18:00→18:30)
[2018-10-18] MEDS ORDERED: morphine 2 MG INJ IV PRN (18:30)
[2018-10-18] MEDS ORDERED: NACL 0.9% 3 ML SYG IV SCH (18:30)
--- NOTE | 2018-10-18 18:40 | HP ---
Date/Time of Note Date/Time of Note DATE: 10/18/18 TIME: 18:30 Assessment/Plan VTE Prophylaxis SCD contraindicated: low risk/ambulating Pharmacological prophylaxis: NA/contraindicated Pharm contraindication: low risk/ambulating Lines/Catheters IV Catheter Type (from Nrsg): Saline Lock Assessment/Plan Assessment/Plan 82 yo woman with HTN and DM2 presents with acute lumbar compression fracture after fall. #Vertebral compression fracture - Opioid analgesics - PT for ambulation - May need rehab placement prior to DC home #Fall - Patient has no memory of fall, cannot rule out syncope - Admit to tele for 24 hours monitoring - No focal neuro defects, head CT negative - No chest pain or palpitations #HTN - Cont home meds #NIDDM - Insulin sliding scale - Hold home meds. DVT: SCDs GI: None Result Diagram: 10/18/18 1539 10/18/18 1539 HPI/ROS Admit Date/Time Admit Date/Time Oct 18, 2018 Hx of Present Illness Ms. Grijalva is an 82 yo woman who presents after ground-level fall with severe back pain. The patient has dementia and does not remember events surrounding the fall. History per daughter at bedside. Apparently the patient was in her usual state of health at 10 am this morning when she stepped into the shower. The daughter l eft the house to the market. A bit after 11 am the patient phoned her daughter and said she had fallen. She does not recall losing consciousness or striking her head. When the daughter returned home the patient was on the floor in the living room in pain. She then had two episodes of nonbloody nonbilious vomiting before coming to the the ED. In the ED she was afebrile, P 70s, BP 140-150/70s. CT shows acute L1 compression fracture of the vertebral body. ROS Patient denies recent fevers, chills, night sweats, weight loss, headache, vision changes, dizziness, sore throat, dysphagia, chest pain/pressure/palpitations, nausea, vomiting, abdominal pain, constipation, melena, hematochezia, dysuria, hematuria. PMH/Family/Social Past Medical History HTN NIDDM Medications Current Medications Sodium Chloride 1,000 ml @ 80 mls/hr [id number] IV ; Start 10/18/18 at 17:48; Stop 10/19/18 at 06:17 Ondansetron HCl (Zofran Inj) 4 mg ER BRIDGE PRN IV NAUSEA/VOMITING; Start 10/18/18 at 18:00; Stop 10/19/18 at 17:59 Acetaminophen (Tylenol Tab) 650 mg ER BRIDGE PRN PO .MILD PAIN 1-3 OR TEMP; Start 10/18/18 at 18:00; Stop 10/19/18 at 17:59 Coded Allergies: No Known Allergies (Verified Allergy, Unknown, 10/18/18) Past Surgical History cholecystectomy Past Surgical Hx: cholecystectomy, other Family History Significant Family History: no pertinent family hx Social History Lives at home with her daughter. Functional with most ADLs. Alcohol Use: none Smoking Status: Never smoker Drug Use: none Exam/Review of Systems Vital Signs Vitals Vital Signs Date Temp Pulse Resp B/P (MAP) Pulse Ox O2 O2 Flow FiO2 Time Delivery Rate 10/18/18 99.0 72 20 141/79 97 Room Air 17:30 (99) Exam Exam Gen: Frail appearing elderly woman in [facility] in discomfort. Eyes: PERRL, no icterus HEENT: Clear oropharynx, moist mucous membranes Neck: No lymphadenopathy Card: Regular rate and rhythm, no murmurs Pulm: Clear to auscultation bilaterally Abd: Soft, nontender, nondistended. Back: No midline spine tenderness even over lumbar spine. Ext: No cyanosis/clubbing/edema Skin: warm, dry, well perfused. Neuro: sensation intact throughout lower extremities, 5/5 strength throughout. ANTHONY HANKS MD Oct 18, 2018 18:40
[2018-10-18] MEDS ORDERED: DEXTROSE 50% 50 ML SYRINGE IV PRN ×2 (19:00)
[2018-10-18] MEDS ORDERED: GLUCOSE GEL 15 GRAM TUBE PO PRN ×2 (19:00)
[2018-10-18] MEDS ORDERED: GLUCAGON 1 MG INJ IM PRN (19:00)
[2018-10-18] MEDS ORDERED: GLUCOSE GEL 15 GRAM TUBE BUCCAL PRN (19:00)
[2018-10-18] MEDS: HYDROCODONE/APAP (5/325) TAB PO PRN (19:22)
[2018-10-18] MEDS: INSULIN ASPART [NOVOLOG] 3 ML PEN SC SCH (21:00)
[2018-10-18 21:25] VITALS: PULSE 81
[2018-10-18 21:30] VITALS: Ht 154.9 cm; Wt 45.7 kg
[2018-10-18 22:00] VITALS: BP 134/63; PULSE 83; RESP 18
[2018-10-19] VITALS (9 sets, daily range): BP systolic 130–171; BP diastolic 61–70; PULSE 68–93; RESP 15–19
[2018-10-19] MEDS ORDERED: QUETIAPINE 25 MG TAB PO ONE (01:00)
[2018-10-19] MEDS: ACCU-CHEK XX SCH ×3 (02:00→20:25)
[2018-10-19] MEDS: HYDROCODONE/APAP (5/325) TAB PO PRN ×3 (03:18→23:48)
[2018-10-19] MEDS ORDERED: PANTOPRAZOLE 40 MG INJ IV SCH (06:00)
[2018-10-19] MEDS: HYDROCHLOROTHIAZIDE 25 MG TAB PO SCH (08:33)
[2018-10-19] MEDS: LOSARTAN 50 MG TAB PO SCH (08:34)
[2018-10-19] MEDS: INSULIN ASPART [NOVOLOG] 3 ML PEN SC SCH ×4 (08:37→20:57)
[2018-10-19] MEDS ORDERED: morphine LIQ (10 MG/5 ML) CUP PO PRN (12:00)
[2018-10-19] MEDS: POTASSIUM CHLORIDE 50 ML IVPB SCH ×3 (13:54→16:38)
[2018-10-19] MEDS: metFORMIN 500 MG TAB PO SCH (17:23)
--- NOTE | 2018-10-19 18:21 | PN ---
Date/Time of Note Date/Time of Note DATE: 10/19/18 TIME: 12:16 Assessment/Plan VTE Prophylaxis Risk score (from Nsg)>0 risk: 3 SCD applied (from Nsg): Yes Pharmacological prophylaxis: LMWH Lines/Catheters IV Catheter Type (from Nrsg): Saline Lock Assessment/Plan Hospital Course S: still with intermittent mild back pain, controlled with pain meds Objective: Gen: Frail appearing elderly woman, currently comfortable, Eyes: PERRL, no icterus HEENT: Clear oropharynx, moist mucous membranes Neck: No lymphadenopathy Card: Regular rate and rhythm, no murmurs Pulm: Clear to auscultation bilaterally Abd: Soft, nontender, nondistended. Back: No midline spine tenderness even over lumbar spine. Ext: No cyanosis/clubbing/edema Skin: warm, dry, well perfused. Neuro: sensation intact throughout lower extremities, 5/5 strength throughout. assessment and plan: 82 yo woman with HTN and DM2 presents with acute lumbar compression fracture after fall. #Vertebral compression fracture - Opioid analgesics - will get neurosurgical review as patient presented after fall, though will likely not require surgical intervention - patient will benefit from MRI to ensure no cord or ligamentous injury - TLSO brace? #Fall - Patient has no memory of fall, cannot rule out syncope - Been sinus without arrhythmia - No focal neuro defects, head CT negative - No chest pain or palpitations - [facility] #HTN - Cont home meds #NIDDM - resume home regimen, titrate as indicated for optimization DVT: Lovenox GI: None Result Diagram: 10/19/18 0540 10/19/18 0540 Results 24hrs Laboratory Tests Test 10/18/18 21:05 10/18/18 22:57 10/19/18 05:40 10/19/18 07:37 Bedside Glucose 317 H 223 H 168 White Blood Count 9.1 # Red Blood Count 3.74 L Hemoglobin 11.6 L Hematocrit 34.0 L Mean Corpuscular 90.9 Volume Mean Corpuscular 31.0 Hemoglobin Mean Corpuscular 34.1 Hemoglobin Concent Red Cell 12.1 Distribution Width Platelet Count 190 Mean Platelet Volume 10.7 H Immature 0.300 Granulocytes % Neutrophils % 82.1 H Lymphocytes % 9.3 L Monocytes % 8.0 Eosinophils % 0.1 Basophils % 0.2 Nucleated Red Blood 0.0 Cells % Immature 0.030 Granulocytes # Neutrophils # 7.5 Lymphocytes # 0.9 Monocytes # 0.7 Eosinophils # 0.0 Basophils # 0.0 Nucleated Red Blood 0.0 Cells # Sodium Level 137 Potassium Level 3.2 L Chloride Level 97 Carbon Dioxide Level 25 Anion Gap 15 H Blood Urea Nitrogen 24 #H Creatinine 0.75 Est Glomerular Filtrat Rate mL/min Glucose Level 171 # Hemoglobin A1c 9.6 H Calcium Level 8.8 Phosphorus Level 4.2 Magnesium Level 1.9 Total Bilirubin 0.5 Direct Bilirubin 0.00 Indirect Bilirubin 0.5 Aspartate Amino 21 Transf (AST/SGOT) Alanine 19 Aminotransferase (AL T/SGPT) Alkaline Phosphatase 74 Total Protein 6.8 Albumin 3.9 Globulin 2.90 Albumin/Globulin 1.34 Ratio Triglycerides Level 157 H Cholesterol Level 125 LDL Cholesterol, 46 Calculated HDL Cholesterol 48 Cholesterol/HDL 2.6 Ratio Thyroid Stimulating 0.884 Hormone (TSH) Test 10/19/18 11:15 10/19/18 17:19 Bedside Glucose 153 200 Exam/Review of Systems Exam Vitals Vital Signs Date Temp Pulse Resp B/P (MAP) Pulse Ox O2 O2 Flow FiO2 Time Delivery Rate 10/19/18 73 16:01 10/19/18 98.1 18 131/61 98 Room Air 15:27 (84) Results Results 24hrs Laboratory Tests Test 10/18/18 21:05 10/18/18 22:57 10/19/18 05:40 10/19/18 07:37 Bedside Glucose 317 H 223 H 168 White Blood Count 9.1 # Red Blood Count 3.74 L Hemoglobin 11.6 L Hematocrit 34.0 L Mean Corpuscular 90.9 Volume Mean Corpuscular 31.0 Hemoglobin Mean Corpuscular 34.1 Hemoglobin Concent Red Cell 12.1 Distribution Width Platelet Count 190 Mean Platelet Volume 10.7 H Immature 0.300 Granulocytes % Neutrophils % 82.1 H Lymphocytes % 9.3 L Monocytes % 8.0 Eosinophils % 0.1 Basophils % 0.2 Nucleated Red Blood 0.0 Cells % Immature 0.030 Granulocytes # Neutrophils # 7.5 Lymphocytes # 0.9 Monocytes # 0.7 Eosinophils # 0.0 Basophils # 0.0 Nucleated Red Blood 0.0 Cells # Sodium Level 137 Potassium Level 3.2 L Chloride Level 97 Carbon Dioxide Level 25 Anion Gap 15 H Blood Urea Nitrogen 24 #H Creatinine 0.75 Est Glomerular Filtrat Rate mL/min Glucose Level 171 # Hemoglobin A1c 9.6 H Calcium Level 8.8 Phosphorus Level 4.2 Magnesium Level 1.9 Total Bilirubin 0.5 Direct Bilirubin 0.00 Indirect Bilirubin 0.5 Aspartate Amino 21 Transf (AST/SGOT) Alanine 19 Aminotransferase (AL T/SGPT) Alkaline Phosphatase 74 Total Protein 6.8 Albumin 3.9 Globulin 2.90 Albumin/Globulin 1.34 Ratio Triglycerides Level 157 H Cholesterol Level 125 LDL Cholesterol, 46 Calculated HDL Cholesterol 48 Cholesterol/HDL 2.6 Ratio Thyroid Stimulating 0.884 Hormone (TSH) Test 10/19/18 11:15 10/19/18 17:19 Bedside Glucose 153 200 Medications Medication Current Medications IV Flush (NS 3 ml) 3 ml PER PROTOCOL IV ; Start 10/18/18 at 18:30 Acetaminophen (Tylenol Tab) 650 mg Q6H PRN PO .PAIN 1-3 OR TEMP; Start 10/18/18 at 18:30 Acetaminophen/ Hydrocodone Bitart ([place] (5/325)) 1 tab Q6H PRN PO .MOD PAIN 4- 6 Last administered on 10/19/18at 13:06; Admin Dose 1 TAB; Start 10/18/18 at 18:30 Diagnostic Test (Pha) (Accu-Chek) 1 ea 02 XX ; Start 10/19/18 at 02:00 Insulin Aspart (Novolog Insulin Pen) NOVOLOG *MODERATE* ALGORITHM WITH MEALS BEDTIME SC Last administered on 10/19/18at 17:22; Admin Dose 4 UNIT; Start 10/18/18 at 21:00 Miscellaneous Information 1 ea NOTE XX ; Start 10/18/18 at 19:00 Glucose (Glutose) 15 gm Q15M PRN PO DECREASED GLUCOSE; Start 10/18/18 at 19:00 Glucose (Glutose) 22.5 gm Q15M PRN PO DECREASED GLUCOSE; Start 10/18/18 at 1 9:00 Dextrose (D50w Syringe) 25 ml Q15M PRN IV DECREASED GLUCOSE; Start 10/18/18 at 19:00 Dextrose (D50w Syringe) 50 ml Q15M PRN IV DECREASED GLUCOSE; Start 10/18/18 at 19:00 Glucagon (Glucagen) 1 mg Q15M PRN IM DECREASED GLUCOSE; Start 10/18/18 at 19:00 Glucose (Glutose) 15 gm Q15M PRN BUCCAL DECREASED GLUCOSE; Start 10/18/18 at 19:00 Losartan Potassium (Cozaar) 100 mg DAILY PO Last administered on 10/19/18at 08:34; Admin Dose 100 MG; Start 10/19/18 at 09:00 Hydrochlorothiazide (Hydrochlorothiazide) 25 mg DAILY PO Last administered on 10/19/18at 08:33; Admin Dose 25 MG; Start 10/19/18 at 09:00 Influenza Virus Vaccine Quadrival (Fluzone) 0.5 ml ONCE ONCE IM* ; Start 10/20/18 at 10:00; Stop 10/20/18 at 10:01 Morphine Sulfate (morphine) 6 mg Q4H PRN PO .SEVERE PAIN 7-10; Start 10/19/18 at 12:00 Pantoprazole (Protonix Tab) 40 mg DAILY@06 PO ; Start 10/20/18 at 06:00 Linagliptin (Tradjenta) 5 mg DAILY PO ; Start 10/20/18 at 09:00 Metformin HCl (Glucophage) 1,000 mg WITH BREAKFAST DINNE PO Last administered on 10/19/18at 17:23; Admin Dose 1,000 MG; Start 10/19/18 at 17:55 Miscellaneous Information 5 mg DAILY PO ; Start 10/20/18 at 09:00; Status UNV Diagnostic Test (Pha) (Accu-Chek) 1 ea AC MEALS AND BEDTIME XX Last administered on 10/19/18at 17:24; Admin Dose 1 EA; Start 10/19/18 at 17:25 SYLVIE WU Oct 19, 2018 18:21
--- NOTE | 2018-10-19 21:49 | CONS ---
DATE OF ADMISSION: 10/18/2018 DATE OF CONSULTATION: 10/19/2018 REQUESTING PHYSICIAN: Dr. Johansen INDICATION FOR CONSULTATION: Lumbar fracture. HISTORY OF PRESENT ILLNESS: The patient is an 82-year-old female who slipped and fall while in her b athtub and landed on her back. She reported a severe onset of low back pain. She denies any numbnes s, tingling, or weakness. She denies any bowel or bladder issues. She denies any saddle anesthesia. She denies any neck pain or pain elsewhere in her body. She denies any weakness. CT scan was perf ormed which showed an L1 burst fracture with minimal retropulsion. No significant loss of height. T here is mild spinal stenosis as a result of the fracture. PAST MEDICAL HISTORY: Significant for hypertension and diabetes. REVIEW OF SYSTEMS: A 12-point review of systems performed. Pertinent positives and negatives listed in history of present illness and below. CONSTITUTIONAL: Denies fevers or chills. HEMATOLOGIC: Denies history of easy bruising or bleeding. MEDICATIONS: The patient states that she does not remember, though she is likely taking some diabeti c medications. PAST SURGICAL HISTORY: Significant for cholecystectomy. FAMILY HISTORY: Inherited history of easy bruising or bleeding. SOCIAL HISTORY: The patient lives at home with her daughter. The patient is nonsmoker, nondrinker, denies illicit drug use. PHYSICAL EXAMINATION: VITAL SIGNS: The patient's temperature 98.1, pulse 73, respirations 18, blood pressure 131/61, satur ating 98% on room air. GENERAL: The patient is an elderly female lying in the hospital bed in no acute distress. HEAD AND NECK: Normocephalic, atraumatic. NECK: Supple, with no Spurling or Lhermitte sign. NEUROLOGIC: The patient is awake, alert, and oriented x3, fluent speech, follows commands readily ap propriately. Cranial nerves intact. Motor exam 5/5 bilateral upper and lower extremities. She has absent deep tendon reflexes with no clonus, Babinski, or Laci sign. Intact sensation. MUSCULOSKELETAL: The patient reports tenderness at the thoracolumbar junction. There is no evidence of significant bruising. LABORATORY DATA: The patient's white count 9.1, hemoglobin 11.6, platelets 190. Her sodium 137, BUN and creatinine 24 and 0.75, glucose of 171. IMAGING: The patient had a CT scan of the head which showed no evidence of any intracranial bleed. This was performed yesterday at 10/18/2018. CT of the lumbar spine again shows the fracture as descr ibed in the history of present illness. It is noted that the radiologist does not report that there is any retropulsion, but there is clearly an inferior disk fragment that does retropulse though this is very mild. ASSESSMENT AND PLAN: An 82-year-old female with a L1 burst fracture. I discussed patient's signs, s ymptoms, physical examination and radiographic findings with her. The patient is neurologically inta ct. She has minimal stenosis. The patient is still scheduled to have an MRI. Unless the MRI shows some significant ligamentous injury, this fracture can generally be managed with simply bracing with a TLSO brace and pain medications. The patient has already had a brace ordered for her and she can b e mobilized once she is in the brace and the MRI has been performed to rule out any significant ligam entous injury. Dictated By: KAVON CLAY MD, LG/SHAWNEE Conf#: [id number] DID#: [id number] CC: ANTHONY HANKS MD;*EndCC*
[2018-10-20] MEDS: ACCU-CHEK XX SCH ×3 (02:10→11:10)
[2018-10-20 02:27] VITALS: BP 112/57; PULSE 82; RESP 19
[2018-10-20] MEDS ORDERED: PANTOPRAZOLE (EC) 40 MG TAB PO SCH (06:00)
[2018-10-20 07:15] VITALS: BP 147/66; PULSE 80; RESP 18
[2018-10-20] MEDS ORDERED: NON-FORMULARY/PATIENT OWN MED (Dapagliflozin Propanediol (Farxiga) 5 MG) PO SCH (09:00)
[2018-10-20] MEDS ORDERED: LINAGLIPTIN 5 MG TABLET PO SCH (09:00)
[2018-10-20] MEDS ORDERED: ENOXAPARIN 40 MG/0.4 ML SYG SC SCH (09:00)
[2018-10-20] MEDS: metFORMIN 500 MG TAB PO SCH (09:01)
[2018-10-20] MEDS: INSULIN ASPART [NOVOLOG] 3 ML PEN SC SCH ×2 (09:04→13:07)
[2018-10-20] MEDS: LOSARTAN 50 MG TAB PO SCH (09:05)
[2018-10-20] MEDS: HYDROCHLOROTHIAZIDE 25 MG TAB PO SCH (09:05)
[2018-10-20] MEDS: HYDROCODONE/APAP (5/325) TAB PO PRN ×3 (09:52→18:08)
[2018-10-20] MEDS ORDERED: INFLUENZA VIRUS VACCINE 0.5 ML (DISPENSING) IM* ONE (10:00)
--- NOTE | 2018-10-20 10:44 | DS ---
Date/Time of Note Date/Time of Note DATE: 10/20/18 TIME: 10:40 Discharge Summary Admission/Discharge Info Admit Date/Time Oct 18, 2018 at 17:49 Discharge Date/Time Discharge Diagnosis 82 yo woman with HTN and DM2 presents with acute lumbar compression fracture after fall. 1. Acute Vertebral compression fracture - analgesics . TLSO brace for comfort, PT 2. s/p mechanical Fall -home PT 3. HTN 4. NIDDM . Patient Condition: Stable Consults Neurosurgery: Dr swetha Shankar MD . Procedures See hospital course . Hospital Course 82-year-old female who had presented to the emergency room after an accidental fall and was found to have L1 acute compression fracture. She did not have any significant neurologic symptoms was also worked up with an MRI of the lumbar spine to rule out ligamentous injury. After review of the MRI, the patient has been cleared for discharge home with the family and home health for physical therapy with recommendation for a TLSO brace to be used for comfort. A CT scan of the brain did not show any acute abnormalities, patient was monitored on telemetry for 24 hours without significant arrhythmia. She will be discharged home with home health for nursing assessment and ongoing physical therapy. Hemoglobin A1c showed that she had poor control of her diabetes on her home regimen and her medications were adjusted. Comorbidities were also aggressively managed as per Med records. Patient at this time has been evaluated and examined in detail and is assessed to be in stable condition and ready for discharge. . Home Meds Active Scripts Hydrocodone Bit-Acetaminophen (Hydrocodone Bit-APAP) 5-325MG Tablet, 1 TAB PO Q6H PRN for .MOD PAIN 4-6, #20 TAB Prov:SYLVIE WU 10/20/18 Quetiapine Fumarate* (Seroquel*) 25 Mg Tablet, 25 MG PO BID, #60 TAB Prov:SYLVIE WU 10/20/18 Syringe, Disposable, 1ML (MONOJECT MEGELLAN TB SYRINGE) 1 Each Disp.syrin, EACH MC QHS, #100 Prov:SYLVIE WU 10/20/18 Insulin Glargine* (Lantus*) 100 Unit/Ml Soln, 7 UNIT SC QHS, #3 VIAL 1 Refill Prov:SYLVIE WU 10/20/18 Reported Medications Losartan-Hydrochlorothiazide (Losartan-HCTZ) 100-25 Mg Tab, 1 TAB PO DAILY, TAB 7 Dapagliflozin Propanediol (Farxiga) 5 Mg Tablet, 5 MG PO DAILY, #30 TAB 03/10/18 Metformin Hcl* (Metformin Hcl*) 1,000 Mg Tablet, 1000 MG PO WITH BREAKFAST DINNE, #60 TAB 03/10/18 Linagliptin (TRADJENTA) 5 Mg Tablet, 5 MG PO DAILY, TAB 03/10/18 Follow-up Plan 1. Followup with your primary doctor within the next 1-2 weeks. If you don't have one please let someone know, we can give you resources that may help you pick one. You may call Dr Mele Sanchez's office. he's accepting new patients Name, Degree: Mele Sanchez MD Specialty: Internal Medicine Comments: Office Address: [address] [place], [place] [id number] Office Office You may also call your insurance company to assign one to you. 2. Review your medication list with your nurse before leaving and if you need new prescriptions please let your nurse know. 3. I may have made changes to your home medications or given you new prescriptions, please let your primary doctor know as well. 4. Stay compliant with your medications and report any side effects to your PCP or pharmacist. 5. Return to the ER if you have any concerns and cannot reach your doctors or call your insurance company, they usually have a nurse that can help you. . Primary Care Provider Candice Gutierrez MD Time spent on discharge: > 30 minutes Pending Labs Laboratory Tests Test 10/19/18 11:15 10/19/18 17:19 10/19/18 20:24 10/20/18 02:08 Bedside 153 200 185 220 Glucose mg/dL (70-220) mg/dL (70-220) mg/dL (70-220) mg/dL (70-220) Test 10/20/18 08:25 Bedside 201 Glucose mg/dL (70-220) SYLVIE WU Oct 20, 2018 10:44
[2018-10-20] MEDS ORDERED: [UNRECOGNIZED DRUG - CODE] MC (10:47)
[2018-10-20] MEDS ORDERED: LANT3I SC (10:47)
[2018-10-20] MEDS ORDERED: QUET25TA PO (10:48)
--- NOTE | 2018-10-20 13:29 | PDOCDIS ---
Discharge Instructions DIAGNOSIS Discharge Diagnosis 82 yo woman with HTN and DM2 presents with acute lumbar compression fracture after fall. #Acute Vertebral compression fracture - analgesics . TLSO brace for comfort, PT # mechanicalFall #HTN #NIDDM CONDITION [id number] Patient Condition: [id number] Stable HOME CARE INSTRUCTIONS: [id number] Special Diet: [id number] Activity Restrictions: [id number] Slowly Increase Activity Rest between Activity FOLLOW UP/APPOINTMENTS Follow-up Plan 1. Followup with your primary doctor within the next 1-2 weeks. If you don't have one please let someone know, we can give you resources that may help you pick one. You may call Dr Mele Sanchez's office. he's accepting new patients Name, Degree: Mele Sanchez MD Specialty: Internal Medicine Comments: Office Address: [address] [place], [place] [id number] Office Office You may also call your insurance company to assign one to you. 2. Review your medication list with your nurse before leaving and if you need new prescriptions please let your nurse know. 3. I may have made changes to your home medications or given you new prescriptions, please let your primary doctor know as well. 4. Stay compliant with your medications and report any side effects to your PCP or pharmacist. 5. Return to the ER if you have any concerns and cannot reach your doctors or call your insurance company, they usually have a nurse that can help you. . SYLVIE WU Oct 20, 2018 13:29
[2018-10-20 14:38] VITALS: BP 116/56; PULSE 82; RESP 18
[2018-10-20] MEDS ORDERED: HYDR-3601 PO (14:57)
--- NOTE | 2018-10-20 16:16 | CONS ---
Assessment/Plan Assessment/Plan Hospital Course (Demo Recall) A/P: 82 year-old female s/p fall with L1 burst fracture. Neurologically stable. Tx with bracing x 12 weeks. f/u in office in 4 weeks. Consultation Date/Type/Reason Admit Date/Time Oct 18, 2018 at 17:49 Initial Consult Date Type of Consult Neurosurgery Date/Time of Note DATE: 10/20/18 TIME: 16:12 24 HR Interval Summary Free Text/Dictation Patient stable. LBP is slightly improved. She denies numbness, tingling, weakness, radiating LE pain or bowel or bladder issues. She has ambulated in her brace. Exam/Review of Systems Exam Vitals Vital Signs Date Temp Pulse Resp B/P (MAP) Pulse Ox O2 O2 Flow FiO2 Time Delivery Rate 10/20/18 98.3 82 18 116/56 97 Room Air 14:38 (76) Intake and Output 10/19/18 10/19/18 10/20/18 1515:00 23:00 07:00 IntakeIntake Total 1000 ml BalanceBalance 1000 ml Constitutional: alert, oriented Musculoskeletal: muscle tone, muscle weakness Neurological: DIRECTOR STUDENT UNION II-XII intact, nl mental status, nl speech, nl strength Results Result Diagram: 10/19/18 0540 10/19/18 0540 Results 24hrs Laboratory Tests Test 10/19/18 17:19 10/19/18 20:24 10/20/18 02:08 10/20/18 08:25 Bedside Glucose 200 185 220 201 Test 10/20/18 12:21 Bedside Glucose 248 H Imaging Imaging MRI lumbar shows L1 burst fracture with retropulsion causing mild-mod stenosis but no cord compression, angulation or significant loss of vertebral body height. There is no evidence of ligamentous injury to the posterior elements at this level. Chronic facet and degenerative changes at L4-5. Medications Medication Current Medications IV Flush (NS 3 ml) 3 ml PER PROTOCOL IV ; Start 10/18/18 at 18:30 Acetaminophen (Tylenol Tab) 650 mg Q6H PRN PO .PAIN 1-3 OR TEMP; Start 10/18/18 at 18:30 Acetaminophen/ Hydrocodone Bitart ([place] (5/325)) 1 tab Q6H PRN PO .MOD PAIN 4- 6 Last administered on 10/20/18at 14:24; Admin Dose 1 TAB; Start 10/18/18 at 18:30 Diagnostic Test (Pha) (Accu-Chek) 1 ea 02 XX Last administered on 10/20/18at 02:10; Admin Dose 1 EA; Start 10/19/18 at 02:00 Insulin Aspart (Novolog Insulin Pen) NOVOLOG *MODERATE* ALGORITHM WITH MEALS BEDTIME SC Last administered on 10/20/18at 13:07; Admin Dose 6 UNIT; Start 10/18/18 at 21:00 Miscellaneous Information 1 ea NOTE XX ; Start 10/18/18 at 19:00 Glucose (Glutose) 15 gm Q15M PRN PO DECREASED GLUCOSE; Start 10/18/18 at 19:00 Glucose (Glutose) 22.5 gm Q15M PRN PO DECREASED GLUCOSE; Start 10/18/18 at 19:00 Dextrose (D50w Syringe) 25 ml Q15M PRN IV DECREASED GLUCOSE; Start 10/18/18 at 19:00 Dextrose (D50w Syringe) 50 ml Q15M PRN IV DECREASED GLUCOSE; Start 10/18/18 at 19:00 Glucagon (Glucagen) 1 mg Q15M PRN IM DECREASED GLUCOSE; Start 10/18/18 at 19:00 Glucose (Glutose) 15 gm Q15M PRN BUCCAL DECREASED GLUCOSE; Start 10/18/18 at 19:00 Losartan Potassium (Cozaar) 100 mg DAILY PO Last administered on 10/20/18at 09:05; Admin Dose 100 MG; Start 10/19/18 at 09:00 Hydrochlorothiazide (Hydrochlorothiazide) 25 mg DAILY PO Last administered on 10/20/18at 09:05; Admin Dose 25 MG; Start 10/19/18 at 09:00 Morphine Sulfate (morphine) 6 mg Q4H PRN PO .SEVERE PAIN 7-10 Last administered on 10/19/18at 20:26; Admin Dose 6 MG; Start 10/19/18 at 12:00 Pantoprazole (Protonix Tab) 40 mg DAILY@06 PO Last administered on 10/20/18at 06:23; Admin Dose 40 MG; Start 10/20/18 at 06:00 Linagliptin (Tradjenta) 5 mg DAILY PO Last administered on 10/20/18at 09:01; Admin Dose 5 MG; Start 10/20/18 at 09:00 Metformin HCl (Glucophage) 1,000 mg WITH BREAKFAST DINNE PO Last administered on 10/20/18at 09:01; Admin Dose 1,000 MG; Start 10/19/18 at 17:55 Miscellaneous Information 5 mg DAILY PO ; Start 10/20/18 at 09:00; Status UNV Diagnostic Test (Pha) (Accu-Chek) 1 ea AC MEALS AND BEDTIME XX Last administered on 10/20/18at 11:10; Admin Dose 1 EA; Start 10/19/18 at 17:25 Enoxaparin Sodium (Lovenox) 40 mg DAILY SC Last administered on 10/20/18at 09:03; Admin Dose 40 MG; Start 10/20/18 at 09:00 KAVON CLAY MD Oct 20, 2018 16:16
== END 2018-10-20 18:20 | disposition home health service (06) | DRG 552 ==
LOC: E/R 14:41 → TEL 17:49 → MS1 10-19 22:48
PROVIDERS: ADMIT Internal Medicine; ATTEND Family Medicine
DX: S32.011A Stable burst fracture of first lumbar vertebra, initial encounter for closed fracture (principal); I10 Essential (primary) hypertension; E11.8 Type 2 diabetes mellitus with unspecified complications; W19.XXXA Unspecified fall, initial encounter; Y93.E1 Activity, personal bathing and showering; Y92.002 Bathroom of unspecified non-institutional (private) residence as the place of occurrence of the external cause
CPT/HCPCS: 36415; 70450; 71045; 72131; 72148; 80048; 80053; 80061; 82962; 83036; 83735; 84100; 84443; 84484; 85025; 90686; 93005; 93880; 96374; 96375; 96376; 97116; 97162; 97530; C9113; J1170; J1650; J1815; J2270; J2405; J3480; J7030; J7040; L0464

== ENCOUNTER 2018-10-25 11:08 | Inpatient (IN) | payer OTHER ==
[~2018-10-25] VITALS: Ht 152.4 cm; Wt 55.9 kg
[~2018-10-25 11:08] MED LIST changes: +HYDR-3601 PO; +LANT3I SC; +QUET25TA PO; +[UNRECOGNIZED DRUG - CODE] MC
[2018-10-25 11:24] VITALS: Ht 152.4 cm; Wt 55.9 kg
[2018-10-25] MEDS ORDERED: ONDANSETRON 4 MG INJ IV STA (11:24)
[2018-10-25] MEDS ORDERED: morphine 4 MG/ML VIAL IV STA ×2 (11:24→13:40)
[2018-10-25] MEDS ORDERED: SOD CHLORIDE 0.9% 500 ML IV STA (11:24)
[2018-10-25] MEDS ORDERED: ONDANSETRON 4 MG INJ IV PRN ×2 (13:30→18:00)
[2018-10-25] MEDS ORDERED: ACETAMINOPHEN 325 MG TAB PO PRN ×2 (13:30→18:00)
--- NOTE | 2018-10-25 13:54 | ERD ---
ER Documentation Chief Complaint Chief Complaint pt bib with c/o back pain, recent dx of compression fx HPI 82-year-old female who presents to the emergency room complaining of back pain. The patient had recent hospitalization for L1 compression fracture. She was discharged home. Initially the patient reported that she is having an exacerbation of her lumbar back pain without radiation, bowel or bladder incontinence or retention. However after a prolonged time I was able to get a hold of the patient's daughter who states that the patient is still having frequency of falls at home and unable to care for herself. The patient is not getting PT or OT at home. During the patient's encounter translation services were utilized Language: Mongolian Source: Family in person ROS All systems reviewed and are negative except as per history of present illness. Medications Home Meds Active Scripts Hydrocodone Bit-Acetaminophen (Hydrocodone Bit-APAP) 5-325MG Tablet, 1 TAB PO Q6H PRN for .MOD PAIN 4-6, #20 TAB Prov:SYLVIE WU. 10/20/18 Quetiapine Fumarate* (Seroquel*) 25 Mg Tablet, 25 MG PO BID, #60 TAB Prov:SYLVIE WU. 10/20/18 Syringe, Disposable, 1ML (MONOJECT MEGELLAN TB SYRINGE) 1 Each Disp.syrin, EACH MC QHS, #100 Prov:SYLVIE WU 10/20/18 Insulin Glargine* (Lantus*) 100 Unit/Ml Soln, 7 UNIT SC QHS, #3 VIAL 1 Refill Prov:SYLVIE WU 10/20/18 Reported Medications Losartan-Hydrochlorothiazide (Losartan-HCTZ) 100-25 Mg Tab, 1 TAB PO DAILY, TAB 03/10/18 Dapagliflozin Propanediol (Farxiga) 5 Mg Tablet, 5 MG PO DAILY, #30 TAB 03/10/18 Metformin Hcl* (Metformin Hcl*) 1,000 Mg Tablet, 1000 MG PO WITH BREAKFAST DINNE , #60 TAB 03/10/18 Linagliptin (TRADJENTA) 5 Mg Tablet, 5 MG PO DAILY, TAB 03/10/18 Allergies Allergies: Coded Allergies: No Known Allergies (Verified Allergy, Unknown, 10/18/18) PMhx/Soc History of Surgery: No (Pt and family denies) Anesthesia Reaction: No Hx Neurological Disorder: No Hx Respiratory Disorders: No Hx Cardiac Disorders: Yes (HTN) Hx Psychiatric Problems: No Hx Miscellaneous Medical Probl: Yes (dementia,HTN,DMII) Hx Alcohol Use: No Hx Substance Use: No Hx Tobacco Use: No Smoking Status: Never smoker FmHx Family History: No diabetes Physical Exam Vitals Vital Signs Date Temp Pulse Resp B/P (MAP) Pulse Ox O2 O2 Flow FiO2 Time Delivery Rate 10/25/18 89 20 172/72 100 Room Air 11:52 (105) 10/25/18 98.6 86 17 171/72 100 11:24 (105) Physical Exam General: Well developed, well nourished, no acute distress Head: Normocephalic, atraumatic. Eyes: Pupils equally reactive, EOM intact ENT: Moist mucous membranes Neck: Supple, no lymphadenopathy Respiratory: Lungs clear bilaterally, no distress Cardiovascular: RRR, no murmurs, rubs, or gallops Abdominal: Soft, non-tender, non-distended, no peritoneal signs Back: No midline tenderness deformities or step-offs : Deferred MSK: No edema, no unilateral swelling, 5/5 strength, intact reflexes Neurologic: Alert and oriented, moving all extremities, normal speech, no focal weakness, no cerebellar signs Skin: No rash Psych: Normal mood Result Diagram: 10/25/18 1131 10/25/18 1131 Results 24 hrs Laboratory Tests Test 10/25/18 11:31 White Blood Count 12.3 10^3/ul Red Blood Count 4.33 10^6/ul Hemoglobin 13.3 g/dl Hematocrit 39.0 % Mean Corpuscular Volume 90.1 fl Mean Corpuscular Hemoglobin 30.7 pg Mean Corpuscular Hemoglobin Concent 34.1 g/dl Red Cell Distribution Width 12.7 % Platelet Count 281 10^3/UL Mean Platelet Volume 10.2 fl Immature Granulocytes % 0.300 % Neutrophils % 93.2 % Lymphocytes % 2.9 % Monocytes % 3.3 % Eosinophils % 0.1 % Basophils % 0.2 % Nucleated Red Blood Cells % 0.0 /100WBC Immature Granulocytes # 0.040 10^3/ul Neutrophils # 11.4 10^3/ul Lymphocytes # 0.4 10^3/ul Monocytes # 0.4 10^3/ul Eosinophils # 0.0 10^3/ul Basophils # 0.0 10^3/ul Nucleated Red Blood Cells # 0.0 10^3/ul Sodium Level 132 mmol/L Potassium Level 3.4 mmol/L Chloride Level 89 mmol/L Carbon Dioxide Level 23 mmol/L Anion Gap 20 Blood Urea Nitrogen 24 mg/dl Creatinine 0.90 mg/dl Est Glomerular Filtrat Rate mL/min mL/min Glucose Level 298 mg/dl Calcium Level 9.6 mg/dl Current Medications Medications Dose Sig/Chandler Start Time Status Last (Trade) Ordered Route PRN Stop Time Admin Dose Reason Admin Sodium 500 ml @ Q1H STAT 10/25/18 DC 10/25/18 Chloride 500 mls/hr IV 11:24 10/25/18 11:38 12:23 Morphine 4 mg ONCE STAT 10/25/18 DC 10/25/18 Sulfate IV 11:24 10/25/18 11:37 (morphine) 11:25 Ondansetron 4 mg ONCE STAT 10/25/18 DC 10/25/18 HCl (Zofran IV 11:24 10/25/18 11:36 Inj) 11:25 Ondansetron 4 mg BRIDGE ORDER 10/25/18 HCl (Zofran PRN IV 13:30 10/26/18 Inj) NAUSEA/VOMITI 13:29 NG 650 mg ER BRIDGE 10/25/18 Acetaminophen PRN PO 13:30 10/26/18 (Tylenol .MILD PAIN 13:29 Tab) 1-3 OR TEMP Morphine 4 mg ONCE STAT 10/25/18 DC Sulfate IV 13:40 10/25/18 (morphine) 13:41 Procedures/MDM EKG, MONITORS, & DIAGNOSTIC IMAGING: CT brain: No acute process per radiologist read CT lumbar spine: Pending formal read LAB INTERPRETATION: I reviewed the laboratory testing and it shows subtle leukocytosis of nonspecific etiology MEDICAL DECISION MAKING: Initially the patient only reported an exacerbation of her back pain and was provided with pain medication with resolution of symptoms. However after approximately an hour and a half I was able to finally get a hold of the patient's daughter. She describes a very different situation including frequency of falls at home. She does report that the patient does have some mild dementia. The patient hides this quite well and is quite intelligent without any obvious stigmata of dementia on initial examination. However, with this additional information I do believe she would benefit from repeat hospital ization and likely placement to rehab facility. Because of the frequency of falls CT imaging of the head and lumbar spine have been ordered. I clinically cleared her cervical spine. The patient's low back pain is unlikely related to serious etiology. The patient exhibits no clinical signs or symptoms and has no history or risk factors to suggest cauda equina, cord compression, epidural abscess, epidural hematoma, acute aortic aneurysm or dissection. ER COURSE: * Subtle leukocytosis is nonspecific, possibly pain response though urinalysis has been added to be followed by admitting team * Patient did require repeat dosing of pain medication CONSULTATION: [None] DISPOSITION PLAN: Accepting care team and consultations: I discussed the current laboratory data, diagnostic imaging and emergency care provided. Admitting team: Dr. Castle Admitting team indication: Insurance directed Departure Diagnosis: Primary Impression: Back pain Back pain location: low back pain Chronicity: unspecified Back pain laterality: bilateral Sciatica presence: without sciatica Qualified Codes: M54.5 - Low back pain Additional Impressions: Compression fracture of L1 vertebra Encounter type: subsequent encounter Fracture type: closed Fracture healing: with routine healing Qualified Codes: S32.010D - Wedge compress ion fracture of first lumbar vertebra, subsequent encounter for fracture with routine healing Frequent falls Leukocytosis Leukocytosis type: unspecified Qualified Codes: D72.829 - Elevated white blood cell count, unspecified Hyperglycemia Condition: WILMER Ma MD Oct 25, 2018 13:54
[2018-10-25 14:40] VITALS: BP 161/70; PULSE 82; RESP 16
[2018-10-25] MEDS ORDERED: morphine 2 MG INJ IV PRN (18:00)
[2018-10-25] MEDS ORDERED: GLUCAGON 1 MG INJ IM PRN (18:00)
[2018-10-25] MEDS ORDERED: NACL 0.9% 3 ML SYG IV SCH (18:00)
[2018-10-25] MEDS ORDERED: GLUCOSE GEL 15 GRAM TUBE PO PRN ×2 (18:00)
[2018-10-25] MEDS ORDERED: GLUCOSE GEL 15 GRAM TUBE BUCCAL PRN (18:00)
[2018-10-25] MEDS ORDERED: DEXTROSE 50% 50 ML SYRINGE IV PRN ×2 (18:00)
[2018-10-25] MEDS ORDERED: DOCUSATE SODIUM 100 MG CAP PO PRN (18:00)
[2018-10-25] MEDS: INSULIN ASPART [NOVOLOG] 3 ML PEN SC SCH ×2 (18:30→20:50)
[2018-10-25] MEDS: POTASSIUM CHLORIDE 30 MEQ in SOD CHLORIDE 0.9% 1,000 ML IV SCH (18:45)
[2018-10-25] MEDS: CEFTRIAXONE 1 GM/50 ML (PMX) 50 ML IVPB SCH (18:47)
[2018-10-25 20:08] VITALS: BP 184/74; PULSE 91; RESP 19
[2018-10-25] MEDS ORDERED: hydrALAzine 20 MG INJ IV ONE (20:30)
[2018-10-25] MEDS: QUETIAPINE 25 MG TAB PO SCH (20:44)
[2018-10-25 20:45] VITALS: BP 195/77; PULSE 87
[2018-10-25] MEDS ORDERED: INSULIN GLARGINE [LANTus] (100 UNITS/ML) SYG SC SCH (21:00)
[2018-10-25 21:30] VITALS: BP 136/64; PULSE 89
[2018-10-25] MEDS: ZOLPIDEM 5 MG TAB PO PRN (22:36)
[2018-10-26] MEDS: ACCU-CHEK XX SCH (02:00)
[2018-10-26 02:03] VITALS: BP 139/60; PULSE 94; RESP 18
[2018-10-26] MEDS ORDERED: HALOPERIDOL 5 MG INJ IM ONE (03:00)
--- NOTE | 2018-10-26 03:34 | HP ---
Date/Time of Note Date/Time of Note DATE: 10/25/18 TIME: 23:00 Assessment/Plan VTE Prophylaxis Pharmacological prophylaxis: LMWH Lines/Catheters IV Catheter Type (from Nrs): Peripheral IV Urinary Cath still in place: No Assessment/Plan Assessment/Plan 1. Frequent falls: Patient was just discharged from here a week ago and at that time showed was diagnosis L1 burst fracture, conservatively managed -CT now shows fractures probably worse in, slightly more retropulsed fragment. 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 -will have the patient be evaluated by neurosurgery again -We will make the decision about obtaining MRI to neurosurgery -Pain management -TLCO brace 2. Type 2 diabetes: (Insulin-dependent): Hyperglycemia -Adjust insulin as needed 3. Hypertension: BP was in acceptable range -Continue home meds with adjustment as needed 4. Leukocytosis: Likely reactive 5. Mild hyperkalemia: Kidney function WNL -Monitor for now 6. Mild hyponatremia: NS IVF for now Result Diagram: 10/25/18 1131 10/25/18 1131 Results 24hrs Laboratory Tests Test 10/25/18 11:31 10/25/18 18:51 10/25/18 20:41 White Blood Count 12.3 #H Red Blood Count 4.33 Hemoglobin 13.3 Hematocrit 39.0 Mean Corpuscular Volume 90.1 Mean Corpuscular Hemoglobin 30.7 Mean Corpuscular Hemoglobin Concent 34.1 Red Cell Distribution Width 12.7 Platelet Count 281 # Mean Platelet Volume 10.2 Immature Granulocytes % 0.300 Neutrophils % 93.2 H Lymphocytes % 2.9 L Monocytes % 3.3 Eosinophils % 0.1 Basophils % 0.2 Nucleated Red Blood Cells % 0.0 Immature Granulocytes # 0.040 H Neutrophils # 11.4 H Lymphocytes # 0.4 L Monocytes # 0.4 Eosinophils # 0.0 Basophils # 0.0 Nucleated Red Blood Cells # 0.0 Sodium Level 132 L Potassium Level 3.4 L Chloride Level 89 L Carbon Dioxide Level 23 Anion Gap 20 H Blood Urea Nitrogen 24 H Creatinine 0.90 Est Glomerular Filtrat Rate mL/min Glucose Level 298 H Calcium Level 9.6 Bedside Glucose 97 90 HPI/ROS Admit Date/Time Admit Date/Time Oct 25, 2018 at 13:25 Hx of Present Illness This is an 82-year-old female with a history of hypertension, type 2 diabetes (insulin-dependent), recent L1 burst fracture who presented to ER because of frequent falls. Family not able to care for the patient properly. Patient was just discharged from here a week ago after she was admitted for L1 burst fracture. At that time she was evaluated by neurosurgery and she was conservatively managed. TLCO braces were placed at that time. 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 She presented with a potassium of 5.4, glucose around 300. WBC 12,000, sodium 132. PMH/Family/Social Past Medical History Medical History: other (See HPI) Medications Current Medications IV Flush (NS 3 ml) 3 ml PER PROTOCOL IV ; Start 10/25/18 at 18:00 Ondansetron HCl (Zofran Inj) 4 mg Q6H PRN IV NAUSEA/VOMITING; Start 10/25/18 at 18:00 Acetaminophen (Tylenol Tab) 650 mg Q6H PRN PO .PAIN 1-3 OR TEMP Last administered on 10/25/18at 20:49; Admin Dose 650 MG; Start 10/25/18 at 18:00 Acetaminophen/ Hydrocodone Bitart ([place] (5/325)) 1 tab Q6H PRN PO .MOD PAIN 4- 6; Start 10/25/18 at 18:00 Morphine Sulfate (morphine) 2 mg Q4H PRN IV .SEVERE PAIN 7-10; Start 10/25/18 at 18:00 Docusate Sodium (Colace) 100 mg Q12H PRN PO .CONSTIPATION; Start 10/25/18 at 18:00 Zolpidem Tartrate (Ambien) 5 mg QHS PRN PO .INSOMNIA Last administered on 10/25/18 22:36; Admin Dose 5 MG; Start 10/25/18 at 18:00 Potassium Chloride 30 meq/ Sodium Chloride 1,015 ml @ 60 mls/hr [id number] IV Last administered on 10/25/18 18:45; Admin Dose 60 MLS/HR; Start 10/25/18 at 18:30 Insulin Glargine (Lantus) 12 units QHS SC Last administered on 10/25/18 20:46; Admin Dose 12 UNITS; Start 10/25/18 at 21:00 Quetiapine Fumarate (Seroquel) 25 mg BID PO Last administered on 10/25/18at 20:44; Admin Dose 25 MG; Start 10/25/18 at 21:00 Diagnostic Test (Pha) (Accu-Chek) 1 ea 02 XX ; Start 10/26/18 at 02:00 Insulin Aspart (Novolog Insulin Pen) NOVOLOG *MILD* ALGORITHM WITH MEALS BEDTIME SC ; Start 10/25/18 at 18:30 Ceftriaxone Sodium 50 ml @ 100 mls/hr Q24H IVPB Last administered on 10/25/18at 18:47; Admin Dose 100 MLS/HR; Start 10/25/18 at 18:00 Miscellaneous Information 1 ea NOTE XX ; Start 10/25/18 at 18:00 Glucose (Glutose) 15 gm Q15M PRN PO DECREASED GLUCOSE; Start 10/25/18 at 18:00 Glucose (Glutose) 22.5 gm Q15M PRN PO DECREASED GLUCOSE; Start 10/25/18 at 18:00 Dextrose (D50w Syringe) 25 ml Q15M PRN IV DECREASED GLUCOSE; Start 10/25/18 at 18:00 Dextrose (D50w Syringe) 50 ml Q15M PRN IV DECREASED GLUCOSE; Start 10/25/18 at 18:00 Glucagon (Glucagen) 1 mg Q15M PRN IM DECREASED GLUCOSE; Start 10/25/18 at 18:00 Glucose (Glutose) 15 gm Q15M PRN BUCCAL DECREASED GLUCOSE; Start 10/25/18 at 18:00 Coded Allergies: No Known Allergies (Verified Allergy, Unknown, 10/18/18) Past Surgical History Past Surgical Hx: other (See HPI) Family History Significant Family History: no pertinent family hx Social History Alcohol Use: none Smoking Status: Never smoker Drug Use: none Exam/Review of Systems Vital Signs Vitals Vital Signs Date Temp Pulse Resp B/P (MAP) Pulse Ox O2 O2 Flow FiO2 Time Delivery Rate 10/26/18 98.3 94 18 139/60 97 02:03 (86) 10/25/18 Room Air 14:40 Intake and Output 10/25/18 10/25/18 10/26/18 1414:59 22:59 06:59 IntakeIntake Total 620 ml BalanceBalance 620 ml Exam Constitutional: other (No acute distress) Head: normocephalic, atraumatic Eyes: PERRL Respiratory: clear to auscultation, normal air movement Cardiovascular: regular rate and rhythm Gastrointestinal: soft, non-tender Genitourinary - Female: other (Back pain) Extremities: normal pulses MAHI AMARAL MD Oct 26, 2018 03:34
[2018-10-26 07:20] VITALS: BP 138/64; PULSE 89; RESP 20
[2018-10-26] MEDS: INSULIN ASPART [NOVOLOG] 3 ML PEN SC SCH ×7 (08:00→20:46)
[2018-10-26] MEDS ORDERED: QUETIAPINE 25 MG TAB PO SCH (09:00)
[2018-10-26] MEDS ORDERED: LORAZEPAM 2 MG INJ IV ONE ×2 (09:00→23:00)
[2018-10-26] MEDS ORDERED: HEPARIN 5,000 UNIT/1 ML VIAL SC SCH (09:00)
[2018-10-26] MEDS: QUETIAPINE 25 MG TAB PO SCH ×2 (09:12→20:43)
[2018-10-26] MEDS ORDERED: POTASSIUM PHOSPHATE 15 MM in SOD CHLORIDE 0.9% 250 ML IVPB ONE (10:00)
[2018-10-26] MEDS: POTASSIUM CHLORIDE 30 MEQ in SOD CHLORIDE 0.9% 1,000 ML IV SCH ×2 (11:25→22:00)
[2018-10-26 14:00] VITALS: BP 149/67; PULSE 84; RESP 20
[2018-10-26] MEDS: CEFTRIAXONE 1 GM/50 ML (PMX) 50 ML IVPB SCH (17:26)
--- NOTE | 2018-10-26 17:50 | PN ---
Date/Time of Note Date/Time of Note DATE: 10/26/18 TIME: 17:38 Assessment/Plan VTE Prophylaxis Risk score (from Nsg)>0 risk: 3 Pharmacological prophylaxis: NA/contraindicated Pharm contraindication: bleeding (??) Lines/Catheters IV Catheter Type (from Nrsg): Peripheral IV Urinary Cath still in place: No Assessment/Plan Hospital Course S: confused, requiring 1:1 sitter, unable to get any significant information from patient. can't even assess for back pain -field case manager spoke with daughter who says they sent her to the ER for black stools and "black vomit" Objective : Constitutional: alert, confused ++, happy, elderly Head: atraumatic, normocephalic Neck: non-tender, supple Respiratory: clear to auscultation Cardiovascular: regular rate and rhythm Gastrointestinal: S/ NT / ND / +BS Extremities: no edema, moving all extremities without deficits assessment and plan: 1. Reported Rebecca and coffee ground emesis -hgb is steady -send stool OB, GI consult ? -hold heparin 2. Encephalopathy: Acute vs acute on chronic -will get MRI brain to further assess -continue seroquel 3. L1 burst fracture, conservatively managed -CT now shows fractures probably worse and slightly more retropulsed fragment. 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 Type 2 diabetes: (Insulin-dependent): -Adjust insulin as needed 5. Hypertension: BP was in acceptable range -Continue home meds with adjustment as needed Result Diagram: 10/26/18 0543 10/26/18 0543 Results 24hrs Laboratory Tests Test 10/25/18 18:51 10/25/18 20:41 10/26/18 05:43 10/26/18 07:54 Bedside Glucose 97 90 83 White Blood Count 7.3 # Red Blood Count 3.69 L Hemoglobin 11.5 L Hematocrit 33.6 L Mean Corpuscular Volume 91.1 Mean Corpuscular 31.2 Hemoglobin Mean Corpuscular 34.2 Hemoglobin Concent Red Cell Distribution 12.6 Width Platelet Count 241 Mean Platelet Volume 10.0 Immature Granulocytes % 0.500 H Neutrophils % 81.8 H Lymphocytes % 9.5 L Monocytes % 6.2 Eosinophils % 1.6 Basophils % 0.4 Nucleated Red Blood 0.0 Cells % Immature Granulocytes # 0.040 H Neutrophils # 6.0 Lymphocytes # 0.7 L Monocytes # 0.5 Eosinophils # 0.1 Basophils # 0.0 Nucleated Red Blood 0.0 Cells # Sodium Level 136 Potassium Level 3.2 L Chloride Level 101 # Carbon Dioxide Level 22 Anion Gap 13 # Blood Urea Nitrogen 16 Creatinine 0.61 Est Glomerular Filtrat Rate mL/min Glucose Level 97 # Calcium Level 8.8 Phosphorus Level 1.9 L Magnesium Level 2.0 Test 10/26/18 12:40 10/26/18 17:29 Bedside Glucose 90 47 *L Exam/Review of Systems Exam Vitals Vital Signs Date Temp Pulse Resp B/P (MAP) Pulse Ox O2 O2 Flow FiO2 Time Delivery Rate 10/26/18 98.0 84 20 149/67 97 Room Air 14:00 (94) Intake and Output 10/25/18 10/25/18 10/26/18 1414:59 22:59 06:59 IntakeIntake Total 670 ml 535 ml BalanceBalance 670 ml 535 ml Results Results 24hrs Laboratory Tests Test 10/25/18 18:51 10/25/18 20:41 10/26/18 05:43 10/26/18 07:54 Bedside Glucose 97 90 83 White Blood Count 7.3 # Red Blood Count 3.69 L Hemoglobin 11.5 L Hematocrit 33.6 L Mean Corpuscular Volume 91.1 Mean Corpuscular 31.2 Hemoglobin Mean Corpuscular 34.2 Hemoglobin Concent Red Cell Distribution 12.6 Width Platelet Count 241 Mean Platelet Volume 10.0 Immature Granulocytes % 0.500 H Neutrophils % 81.8 H Lymphocytes % 9.5 L Monocytes % 6.2 Eosinophils % 1.6 Basophils % 0.4 Nucleated Red Blood 0.0 Cells % Immature Granulocytes # 0.040 H Neutrophils # 6.0 Lymphocytes # 0.7 L Monocytes # 0.5 Eosinophils # 0.1 Basophils # 0.0 Nucleated Red Blood 0.0 Cells # Sodium Level 136 Potassium Level 3.2 L Chloride Level 101 # Carbon Dioxide Level 22 Anion Gap 13 # Blood Urea Nitrogen 16 Creatinine 0.61 Est Glomerular Filtrat Rate mL/min Glucose Level 97 # Calcium Level 8.8 Phosphorus Level 1.9 L Magnesium Level 2.0 Test 10/26/18 12:40 10/26/18 17:29 Bedside Glucose 90 47 *L Medications Medication Current Medications IV Flush (NS 3 ml) 3 ml PER PROTOCOL IV ; Start 10/25/18 at 18:00 Ondansetron HCl (Zofran Inj) 4 mg Q6H PRN IV NAUSEA/VOMITING; Start 10/25/18 at 18:00 Acetaminophen (Tylenol Tab) 650 mg Q6H PRN PO .PAIN 1-3 OR TEMP Last administered on 10/25/18at 20:49; Admin Dose 650 MG; Start 10/25/18 at 18:00 Acetaminophen/ Hydrocodone Bitart ([place] (5/325)) 1 tab Q6H PRN PO .MOD PAIN 4- 6; Start 10/25/18 at 18:00 Docusate Sodium (Colace) 100 mg Q12H PRN PO .CONSTIPATION; Start 10/25/18 at 18:00 Zolpidem Tartrate (Ambien) 5 mg QHS PRN PO .INSOMNIA Last administered on 10/25/18at 22:36; Admin Dose 5 MG; Start 10/25/18 at 18:00 Potassium Chloride 30 meq/ Sodium Chloride 1,015 ml @ 60 mls/hr [id number] IV Last administered on 10/25/18 18:45; Admin Dose 60 MLS/HR; Start 10/25/18 at 18:30 Insulin Glargine (Lantus) 12 units QHS SC Last administered on 10/25/18 20:46; Admin Dose 12 UNITS; Start 10/25/18 at 21:00 Quetiapine Fumarate (Seroquel) 25 mg BID PO Last administered on 10/26/18 09:12; Admin Dose 25 MG; Start 10/25/18 at 21:00 Diagnostic Test (Pha) (Accu-Chek) 1 ea 02 XX ; Start 10/26/18 at 02:00 Insulin Aspart (Novolog Insulin Pen) NOVOLOG *MILD* ALGORITHM WITH MEALS BEDTIME SC ; Start 10/25/18 at 18:30 Ceftriaxone Sodium 50 ml @ 100 mls/hr Q24H IVPB Last administered on 10/26/18 17:26; Admin Dose 100 MLS/HR; Start 10/25/18 at 18:00 Miscellaneous Information 1 ea NOTE XX ; Start 10/25/18 at 18:00 Glucose (Glutose) 15 gm Q15M PRN PO DECREASED GLUCOSE; Start 10/25/18 at 18:00 Glucose (Glutose) 22.5 gm Q15M PRN PO DECREASED GLUCOSE; Start 10/25/18 at 18:00 Dextrose (D50w Syringe) 25 ml Q15M PRN IV DECREASED GLUCOSE; Start 10/25/18 at 18:00 Dextrose (D50w Syringe) 50 ml Q15M PRN IV DECREASED GLUCOSE; Start 10/25/18 at 18:00 Glucagon (Glucagen) 1 mg Q15M PRN IM DECREASED GLUCOSE; Start 10/25/18 at 18:00 Glucose (Glutose) 15 gm Q15M PRN BUCCAL DECREASED GLUCOSE; Start 10/25/18 at 18:00 Insulin Aspart (Novolog Insulin Pen) 5 unit WITH MEALS SC Last administered on 10/26/18at 13:01; Admin Dose 5 UNIT; Start 10/26/18 at 08:00 Heparin Sodium (Porcine) (Heparin (5000 Units/1ml)) 5,000 unit BID SC Last administered on 10/26/18at 08:58; Admin Dose 5,000 UNIT; Start 10/26/18 at 09:00 Quetiapine Fumarate (Seroquel) 25 mg BID PO ; Start 10/26/18 at 09:00; Stop at 21:01 Morphine Sulfate (morphine) 6 mg Q4H PRN PO SEVERE PAIN LEVEL 7-10; Start 10/26/18 at 14:30 SYLVIE WU Oct 26, 2018 17:49
[2018-10-26 19:30] VITALS: BP 139/64; PULSE 86; RESP 19
[2018-10-26] MEDS: HYDROCODONE/APAP (5/325) TAB PO PRN (20:43)
[2018-10-26] MEDS: INSULIN GLARGINE [LANTus] (100 UNITS/ML) SYG SC SCH (21:03)
[2018-10-27 01:35] VITALS: BP 131/61; PULSE 72; RESP 18
[2018-10-27] MEDS: ACCU-CHEK XX SCH (02:10)
[2018-10-27 07:49] VITALS: BP 153/68; PULSE 68; RESP 18
[2018-10-27] MEDS: INSULIN ASPART [NOVOLOG] 3 ML PEN SC SCH ×7 (08:00→21:00)
[2018-10-27] MEDS: QUETIAPINE 25 MG TAB PO SCH ×2 (09:02→20:27)
--- NOTE | 2018-10-27 11:49 | CONS ---
Assessment/Plan Assessment/Plan Hospital Course (Demo Recall) Summary Assessment and Plan: Assessment: Reported melena/Coffee-ground emesis Normocytic anemia Encephalopathy -unclear etiology acute vs chronic HTN DM L1 burst fracture -Managed conservatively Plan: PPI BID Will add Carafate Called daughter Leslee [phone] no answer, will attempt to get in contact again in near future Monitor labs and for overt signs of GI bleed. Patient seen in collaboration with Dr. Conrad CC: YOANA CONRAD ; Consultation Date/Type/Reason Admit Date/Time Oct 25, 2018 at 13:25 Date of Consultation: Oct 27, 2018 Type of Consult GI Reason for Consultation Reported melena/coffee-ground emesis Date/Time of Note DATE: 10/27/18 TIME: 11:11 Hx of Present Illness This is an 82 year old Danish speaking female with PMH of DM, type. Pt is confused therefore HPI is limited and obtained from medical records. who was admitted to the ED with reported black emesis and black stools. Labs over the past 3 days show hemoglobin trending down however there is a sitter at bedside as patient is confused who states she has been helping her to the bathroom and denies any overt signs of GI bleed. The patient is alert and confused oriented to name only however she denies nausea/vomiting or abdominal pain. I attempted to call patient's daughter Leslee at [phone] no answer I left a message to call the office back. She is tolerating a regular diet without difficulty. At this time we will plan to treat medically, there is no active bleeding we will continue to monitor H/HL discussed plan of care with daughter patient may require EGD near future.. Review of Systems: A 12 system, review was conducted and is negative except as noted in the HPI or here. Past Medical History Medical History: other (See HPI) Home Meds Active Scripts Hydrocodone Bit-Acetaminophen (Hydrocodone Bit-APAP) 5-325MG Tablet, 1 TAB PO Q6H PRN for .MOD PAIN 4-6, #20 TAB Prov:SYLVIE WU M. 10/20/18 Quetiapine Fumarate* (Seroquel*) 25 Mg Tablet, 25 MG PO BID, #60 TAB Prov:SYLVIE WU M. 10/20/18 Syringe, Disposable, 1ML (MONOJECT MEGELLAN TB SYRINGE) 1 Each Disp.syrin, EACH QHS, #100 Prov:SYLVIE WU. 10/20/18 Insulin Glargine* (Lantus*) 100 Unit/Ml Soln, 7 UNIT SC QHS, #3 VIAL 1 Refill Prov:SYLVIE WU. 10/20/18 Reported Medications Losartan-Hydrochlorothiazide (Losartan-HCTZ) 100-25 Mg Tab, 1 TAB PO DAILY, TAB 03/10/18 Dapagliflozin Propanediol (Farxiga) 5 Mg Tablet, 5 MG PO DAILY, #30 TAB 03/10/18 Metformin Hcl* (Metformin Hcl*) 1,000 Mg Tablet, 1000 MG PO WITH BREAKFAST DINNE, #60 TAB 03/10/18 Linagliptin (TRADJENTA) 5 Mg Tablet, 5 MG PO DAILY, TAB 03/10/18 Medications Current Medications IV Flush (NS 3 ml) 3 ml PER PROTOCOL IV ; Start 10/25/18 at 18:00 Ondansetron HCl (Zofran Inj) 4 mg Q6H PRN IV NAUSEA/VOMITING; Start 10/25/18 at 18:00 Acetaminophen (Tylenol Tab) 650 mg Q6H PRN PO .PAIN 1-3 OR TEMP Last administered on 10/25/18at 20:49; Admin Dose 650 MG; Start 10/25/18 at 18:00 Acetaminophen/ Hydrocodone Bitart ([place] (5/325)) 1 tab Q6H PRN PO .MOD PAIN 4- 6 Last administered on 10/26/18at 20:43; Admin Dose 1 TAB; Start 10/25/18 at 18:00 Docusate Sodium (Colace) 100 mg Q12H PRN PO .CONSTIPATION; Start 10/25/18 at 18:00 Zolpidem Tartrate (Ambien) 5 mg QHS PRN PO .INSOMNIA Last administered on 10/25/18 22:36; Admin Dose 5 MG; Start 10/25/18 at 18:00 Potassium Chloride 30 meq/ Sodium Chloride 1,015 ml @ 60 mls/hr [id number] IV Last administered on 10/26/18 22:00; Admin Dose 60 MLS/HR; Start 10/25/18 at 18:30 Quetiapine Fumarate (Seroquel) 25 mg BID PO Last administered on 10/27/18 09:02; Admin Dose 25 MG; Start 10/25/18 at 21:00 Diagnostic Test (Pha) (Accu-Chek) 1 ea 02 XX Last administered on 10/27/18 02:10; Admin Dose 1 EA; Start 10/26/18 at 02:00 Insulin Aspart (Novolog Insulin Pen) NOVOLOG *MILD* ALGORITHM WITH MEALS BEDTIME SC Last administered on 10/26/18 20:46; Admin Dose 2 UNIT; Start 10/25/18 at 18:30 Miscellaneous Information 1 ea NOTE XX ; Start 10/25/18 at 18:00 Glucose (Glutose) 15 gm Q15M PRN PO DECREASED GLUCOSE; Start 10/25/18 at 18:00 Glucose (Glutose) 22.5 gm Q15M PRN PO DECREASED GLUCOSE; Start 10/25/18 at 18:00 Dextrose (D50w Syringe) 25 ml Q15M PRN IV DECREASED GLUCOSE; Start 10/25/18 at 18:00 Dextrose (D50w Syringe) 50 ml Q15M PRN IV DECREASED GLUCOSE Last administered on 10/26/18 17:33; Admin Dose 50 ML; Start 10/25/18 at 18:00 Glucagon (Glucagen) 1 mg Q15M PRN IM DECREASED GLUCOSE; Start 10/25/18 at 18:00 Glucose (Glutose) 15 gm Q15M PRN BUCCAL DECREASED GLUCOSE; Start 10/25/18 at 18:00 Heparin Sodium (Porcine) (Heparin (5000 Units/1ml)) 5,000 unit BID SC Last administered on 10/26/18 08:58; Admin Dose 5,000 UNIT; Start 10/26/18 at 09:00; Status Hold Morphine Sulfate (morphine) 6 mg Q4H PRN PO SEVERE PAIN LEVEL 7-10; Start 10/26/18 at 14:30 Insulin Aspart (Novolog Insulin Pen) 3 unit WITH MEALS SC Last administered on 10/27/18 09:05; Admin Dose 3 UNIT; Start 10/26/18 at 18:00 Insulin Glargine (Lantus) 7 units QHS SC Last administered on 10/26/18 21:03; Admin Dose 7 UNITS; Start 10/26/18 at 21:00 Allergies: Coded Allergies: No Known Allergies (Verified Allergy, Unknown, 10/18/18) Past Surgical History Past Surgical Hx: other (See HPI) Social History Alcohol Use: none Smoking Status: Never smoker Drug Use: none Exam/Review of Systems Exam Vitals Vital Signs Date Temp Pulse Resp B/P (MAP) Pulse Ox O2 O2 Flow FiO2 Time Delivery Rate 10/27/18 97.6 68 18 153/68 99 07:49 (96) 10/26/18 Room Air 14:00 Intake and Output 10/26/18 10/26/18 10/27/18 1515:00 23:00 07:00 IntakeIntake Total 240 ml 1145 ml 450 ml BalanceBalance 240 ml 1145 ml 450 ml Exam PHYSICAL EXAMINATION: GENERAL: Well developed, well nourished, alert & oriented x1 to name, confused SKIN: No lesions EYES: Pupils equal reactive to light, no discharge. EARS/NOSE AND THROAT: Ears normal, nose normal NECK: Supple, no masses CHEST: Inspection within normal limits. CARDIOVASCULAR: Heart: Regular rate and rhythm RESPIRATORY: Lungs clear to auscultation GASTROINTESTINAL AND LIVER: Abdomen: Soft, non tenderness, non-distended, no hernias, no masses, no organomegaly, no ascites, no guarding, no rebound tenderness, normoactive bowel sounds. Rectal: Deferred. EXTREMITIES: No cyanosis, clubbing or edema. Constitutional: alert Results Result Diagram: 10/27/18 0505 10/27/18 0505 Results 24hrs Laboratory Tests Test 10/26/18 12:40 10/26/18 17:29 10/26/18 18:01 10/26/18 20:37 Bedside Glucose 90 47 *L 268 H 252 H Test 10/27/18 02:04 10/27/18 05:05 10/27/18 08:48 Bedside Glucose 99 123 White Blood Count 4.1 #L Red Blood Count 3.49 L Hemoglobin 10.9 L Hematocrit 31.7 L Mean Corpuscular Volume 90.8 Mean Corpuscular 31.2 Hemoglobin Mean Corpuscular 34.4 Hemoglobin Concent Red Cell Distribution 13.2 Width Platelet Count 232 Mean Platelet Volume 10.2 Immature Granulocytes % 0.500 H Neutrophils % 62.0 Lymphocytes % 19.3 Monocytes % 11.2 H Eosinophils % 6.3 Basophils % 0.7 Nucleated Red Blood 0.0 Cells % Immature Granulocytes # 0.020 Neutrophils # 2.5 Lymphocytes # 0.8 Monocytes # 0.5 Eosinophils # 0.3 Basophils # 0.0 Nucleated Red Blood 0.0 Cells # Sodium Level 141 Potassium Level 3.6 Chloride Level 106 Carbon Dioxide Level 26 Anion Gap 9 Blood Urea Nitrogen 10 Creatinine 0.53 Est Glomerular Filtrat Rate mL/min Glucose Level 97 Calcium Level 8.4 Phosphorus Level 2.8 Magnesium Level 2.0 Medications Medication Current Medications IV Flush (NS 3 ml) 3 ml PER PROTOCOL IV ; Start 10/25/18 at 18:00 Ondansetron HCl (Zofran Inj) 4 mg Q6H PRN IV NAUSEA/VOMITING; Start 10/25/18 at 18:00 Acetaminophen (Tylenol Tab) 650 mg Q6H PRN PO .PAIN 1-3 OR TEMP Last administered on 10/25/18 20:49; Admin Dose 650 MG; Start 10/25/18 at 18:00 Acetaminophen/ Hydrocodone Bitart ([place] (5/325)) 1 tab Q6H PRN PO .MOD PAIN 4- 6 Last administered on 10/26/18 20:43; Admin Dose 1 TAB; Start 10/25/18 at 18:00 Docusate Sodium (Colace) 100 mg Q12H PRN PO .CONSTIPATION; Start 10/25/18 at 18:00 Zolpidem Tartrate (Ambien) 5 mg QHS PRN PO .INSOMNIA Last administered on 10/25/18 22:36; Admin Dose 5 MG; Start 10/25/18 at 18:00 Potassium Chloride 30 meq/ Sodium Chloride 1,015 ml @ 60 mls/hr [id number] IV Last administered on 10/26/18 22:00; Admin Dose 60 MLS/HR; Start 10/25/18 at 18:30 Quetiapine Fumarate (Seroquel) 25 mg BID PO Last administered on 10/27/18 09:02; Admin Dose 25 MG; Start 10/25/18 at 21:00 Diagnostic Test (Pha) (Accu-Chek) 1 ea 02 XX Last administered on 10/27/18 02:10; Admin Dose 1 EA; Start 10/26/18 at 02:00 Insulin Aspart (Novolog Insulin Pen) NOVOLOG *MILD* ALGORITHM WITH MEALS BEDTIME SC Last administered on 10/26/18 20:46; Admin Dose 2 UNIT; Start 10/25/18 at 18:30 Miscellaneous Information 1 ea NOTE XX ; Start 10/25/18 at 18:00 Glucose (Glutose) 15 gm Q15M PRN PO DECREASED GLUCOSE; Start 10/25/18 at 18:00 Glucose (Glutose) 22.5 gm Q15M PRN PO DECREASED GLUCOSE; Start 10/25/18 at 18:00 Dextrose (D50w Syringe) 25 ml Q15M PRN IV DECREASED GLUCOSE; Start 10/25/18 at 18:00 Dextrose (D50w Syringe) 50 ml Q15M PRN IV DECREASED GLUCOSE Last administered on 10/26/18at 17:33; Admin Dose 50 ML; Start 10/25/18 at 18:00 Glucagon (Glucagen) 1 mg Q15M PRN IM DECREASED GLUCOSE; Start 10/25/18 at 18:00 Glucose (Glutose) 15 gm Q15M PRN BUCCAL DECREASED GLUCOSE; Start 10/25/18 at 18:00 Heparin Sodium (Porcine) (Heparin (5000 Units/1ml)) 5,000 unit BID SC Last administered on 10/26/18at 08:58; Admin Dose 5,000 UNIT; Start 10/26/18 at 09:00; Status Hold Morphine Sulfate (morphine) 6 mg Q4H PRN PO SEVERE PAIN LEVEL 7-10; Start 10/26/18 at 14:30 Insulin Aspart (Novolog Insulin Pen) 3 unit WITH MEALS SC Last administered on 10/27/18 09:05; Admin Dose 3 UNIT; Start 10/26/18 at 18:00 Insulin Glargine (Lantus) 7 units QHS SC Last administered on 10/26/18at 21:03; Admin Dose 7 UNITS; Start 10/26/18 at 21:[address]APER Oct 27, 2018 11:21
[2018-10-27] MEDS: SUCRALFATE (100 MG/ML) 10ML CUP PO SCH ×3 (13:28→20:27)
[2018-10-27 14:20] VITALS: BP 155/69; PULSE 88; RESP 18
--- NOTE | 2018-10-27 17:28 | PN ---
Date/Time of Note Date/Time of Note DATE: 10/27/18 TIME: 17:28 Assessment/Plan VTE [place] [facility] [place]: 3 [place] [facility] [place] Yes Pharmacological prophylaxis: NA/contraindicated Pharm contraindication: bleeding Lines/Catheters IV Catheter Type (from [facility] Saline Lock Urinary Cath still in place: No Assessment/Plan Hospital Course S:mentation seems a bit better today, not as impulsive, but still doesn't recognize family. Family reports that this has slowly been getting worse over time. But there seems to have been a sudden decline. Objective : Constitutional: alert, confused ++, happy, elderly Head: atraumatic, normocephalic Neck: non-tender, supple Respiratory: clear to auscultation Cardiovascular: regular rate and rhythm Gastrointestinal: S/ NT / ND / +BS Extremities: no edema, moving all extremities without deficits assessment and plan: 1. Reported Rebecca and coffee ground emesis - No further episodes inhouse but hgb is slowly dropping -appreciate GI input, possible endoscopy tomorrow, family has been notified and will consent -hold heparin 2. Encephalopathy: Acute vs acute on chronic -will get MRI brain to further assess -continue seroquel 3. L1 burst fracture, conservatively managed -CT now shows fractures probably worse and slightly more retropulsed fragment. 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 Type 2 diabetes: (Insulin-dependent): -Adjust insulin as needed 5. Hypertension: BP was in acceptable range -Continue home meds with adjustment as needed Dispo: wean 1:1 sitter, f/u [employer] consultant recs. Result Diagram: 10/27/18 0505 10/27/18 0505 Results 24hrs Laboratory Tests Test 10/26/18 17:29 10/26/18 18:01 10/26/18 20:37 10/27/18 02:04 Bedside Glucose 47 *L 268 H 252 H 99 Test 10/27/18 05:05 10/27/18 08:48 10/27/18 13:20 White Blood Count 4.1 #L Red Blood Count 3.49 L Hemoglobin 10.9 L Hematocrit 31.7 L Mean Corpuscular Volume 90.8 Mean Corpuscular 31.2 Hemoglobin Mean Corpuscular 34.4 Hemoglobin Concent Red Cell Distribution 13.2 Width Platelet Count 232 Mean Platelet Volume 10.2 Immature Granulocytes % 0.500 H Neutrophils % 62.0 Lymphocytes % 19.3 Monocytes % 11.2 H Eosinophils % 6.3 Basophils % 0.7 Nucleated Red Blood 0.0 Cells % Immature Granulocytes # 0.020 Neutrophils # 2.5 Lymphocytes # 0.8 Monocytes # 0.5 Eosinophils # 0.3 Basophils # 0.0 Nucleated Red Blood 0.0 Cells # Sodium Level 141 Potassium Level 3.6 Chloride Level 106 Carbon Dioxide Level 26 Anion Gap 9 Blood Urea Nitrogen 10 Creatinine 0.53 Est Glomerular Filtrat Rate mL/min Glucose Level 97 Calcium Level 8.4 Phosphorus Level 2.8 Magnesium Level 2.0 Bedside Glucose 123 104 Exam/Review of Systems Exam Vitals Vital Signs Date Temp Pulse Resp B/P (MAP) Pulse Ox O2 O2 Flow FiO2 Time Delivery Rate 10/27/18 98.5 88 18 155/69 98 14:20 (97) 10/26/18 Room Air 14:00 Intake and Output 10/26/18 10/26/18 10/27/18 1515:00 23:00 07:00 IntakeIntake Total 240 ml 1145 ml 450 ml BalanceBalance 240 ml 1145 ml 450 ml Results Results 24hrs Laboratory Tests Test 10/26/18 17:29 10/26/18 18:01 10/26/18 20:37 10/27/18 02:04 Bedside Glucose 47 *L 268 H 252 H 99 Test 10/27/18 05:05 10/27/18 08:48 10/27/18 13:20 White Blood Count 4.1 #L Red Blood Count 3.49 L Hemoglobin 10.9 L Hematocrit 31.7 L Mean Corpuscular Volume 90.8 Mean Corpuscular 31.2 Hemoglobin Mean Corpuscular 34.4 Hemoglobin Concent Red Cell Distribution 13.2 Width Platelet Count 232 Mean Platelet Volume 10.2 Immature Granulocytes % 0.500 H Neutrophils % 62.0 Lymphocytes % 19.3 Monocytes % 11.2 H Eosinophils % 6.3 Basophils % 0.7 Nucleated Red Blood 0.0 Cells % Immature Granulocytes # 0.020 Neutrophils # 2.5 Lymphocytes # 0.8 Monocytes # 0.5 Eosinophils # 0.3 Basophils # 0.0 Nucleated Red Blood 0.0 Cells # Sodium Level 141 Potassium Level 3.6 Chloride Level 106 Carbon Dioxide Level 26 Anion Gap 9 Blood Urea Nitrogen 10 Creatinine 0.53 Est Glomerular Filtrat Rate mL/min Glucose Level 97 Calcium Level 8.4 Phosphorus Level 2.8 Magnesium Level 2.0 Bedside Glucose 123 104 Medications Medication Current Medications IV Flush (NS 3 ml) 3 ml PER PROTOCOL IV ; Start 10/25/18 at 18:00 Ondansetron HCl (Zofran Inj) 4 mg Q6H PRN IV NAUSEA/VOMITING; Start 10/25/18 at 18:00 Acetaminophen (Tylenol Tab) 650 mg Q6H PRN PO .PAIN 1-3 OR TEMP Last administered on 10/25/18 20:49; Admin Dose 650 MG; Start 10/25/18 at 18:00 Acetaminophen/ Hydrocodone Bitart ([place] (5/325)) 1 tab Q6H PRN PO .MOD PAIN 4- 6 Last administered on 10/26/18 20:43; Admin Dose 1 TAB; Start 10/25/18 at 18:00 Docusate Sodium (Colace) 100 mg Q12H PRN PO .CONSTIPATION; Start 10/25/18 at 18:00 Zolpidem Tartrate (Ambien) 5 mg QHS PRN PO .INSOMNIA Last administered on 10/25/18 22:36; Admin Dose 5 MG; Start 10/25/18 at 18:00 Potassium Chloride 30 meq/ Sodium Chloride 1,015 ml @ 60 mls/hr [id number] IV Last administered on 10/26/18 22:00; Admin Dose 60 MLS/HR; Start 10/25/18 at 18:30 Quetiapine Fumarate (Seroquel) 25 mg BID PO Last administered on 10/27/18 09:02; Admin Dose 25 MG; Start 10/25/18 at 21:00 Diagnostic Test (Pha) (Accu-Chek) 1 ea 02 XX Last administered on 10/27/18 02:10; Admin Dose 1 EA; Start 10/26/18 at 02:00 Insulin Aspart (Novolog Insulin Pen) NOVOLOG *MILD* ALGORITHM WITH MEALS BEDTIME SC Last administered on 10/26/18 20:46; Admin Dose 2 UNIT; Start 10/25/18 at 18:30 Miscellaneous Information 1 ea NOTE XX ; Start 10/25/18 at 18:00 Glucose (Glutose) 15 gm Q15M PRN PO DECREASED GLUCOSE; Start 10/25/18 at 18:00 Glucose (Glutose) 22.5 gm Q15M PRN PO DECREASED GLUCOSE; Start 10/25/18 at 18:00 Dextrose (D50w Syringe) 25 ml Q15M PRN IV DECREASED GLUCOSE; Start 10/25/18 at 18:00 Dextrose (D50w Syringe) 50 ml Q15M PRN IV DECREASED GLUCOSE Last administered on 10/26/18 17:33; Admin Dose 50 ML; Start 10/25/18 at 18:00 Glucagon (Glucagen) 1 mg Q15M PRN IM DECREASED GLUCOSE; Start 10/25/18 at 18:00 Glucose (Glutose) 15 gm Q15M PRN BUCCAL DECREASED GLUCOSE; Start 10/25/18 at 18:00 Heparin Sodium (Porcine) (Heparin (5000 Units/1ml)) 5,000 unit BID SC Last administered on 10/26/18 08:58; Admin Dose 5,000 UNIT; Start 10/26/18 at 09:00; Status Hold Morphine Sulfate (morphine) 6 mg Q4H PRN PO SEVERE PAIN LEVEL 7-10; Start 10/26/18 at 14:30 Insulin Aspart (Novolog Insulin Pen) 3 unit WITH MEALS SC Last administered on 10/27/18 13:29; Admin Dose 3 UNIT; Start 10/26/18 at 18:00 Insulin Glargine (Lantus) 7 units QHS SC Last administered on 10/26/18 21:03; Admin Dose 7 UNITS; Start 10/26/18 at 21:00 Sucralfate (Carafate Susp) 1 gm QID PO Last administered on 10/27/18 13:28; Admin Dose 1 GM; Start 10/27/18 at 13:00 Pantoprazole (Protonix Tab) 40 mg BID@06,18 PO ; Start 10/27/18 at 18:00 SYLVIE WU Oct 27, 2018 17:28
[2018-10-27] MEDS: PANTOPRAZOLE (EC) 40 MG TAB PO SCH (17:42)
[2018-10-27] MEDS: POTASSIUM CHLORIDE 30 MEQ in SOD CHLORIDE 0.9% 1,000 ML IV SCH (17:50)
[2018-10-27 19:21] VITALS: BP 160/72; PULSE 91; RESP 16
[2018-10-27] MEDS: INSULIN GLARGINE [LANTus] (100 UNITS/ML) SYG SC SCH (20:37)
[2018-10-27] MEDS: HYDROCODONE/APAP (5/325) TAB PO PRN (23:54)
[2018-10-28 01:19] VITALS: BP 144/63; PULSE 92; RESP 16
[2018-10-28] MEDS: ACCU-CHEK XX SCH (02:00)
[2018-10-28] MEDS: ZOLPIDEM 5 MG TAB PO PRN (03:05)
[2018-10-28] MEDS: morphine LIQ (10 MG/5 ML) CUP PO PRN (03:05)
[2018-10-28] MEDS ORDERED: HALOPERIDOL 5 MG INJ IM ONE (04:00)
[2018-10-28] MEDS ORDERED: LORAZEPAM 2 MG INJ IV ONE (04:00)
[2018-10-28] MEDS: PANTOPRAZOLE (EC) 40 MG TAB PO SCH ×2 (05:42→17:19)
--- NOTE | 2018-10-28 06:40 | PN ---
Date/Time of Note Date/Time of Note DATE: 10/28/18 TIME: 06:36 Assessment/Plan VTE Prophylaxis Risk score [place] [facility] [place] risk: 4 SCD applied (from [facility] [place] Yes Pharmacological prophylaxis: heparin Lines/Catheters IV Catheter Type (from [facility]): Peripheral IV Urinary Cath still in place: No Assessment/Plan Hospital Course S: Had to be given haldol overnight Objective : Constitutional: alert, elderly, still requiring sitter Head: atraumatic, normocephalic Neck: non-tender, supple Respiratory: clear to auscultation Cardiovascular: regular rate and rhythm Gastrointestinal: S/ NT / ND / +BS Extremities: no edema, moving all extremities without deficits assessment and plan: 1. Reported Rebecca and coffee ground emesis - No further episodes inhouse but hgb is slowly dropping -appreciate GI input, possible endoscopy today? -hold heparin 2. Encephalopathy: Acute vs acute on chronic -MRI brain reviewed, no acute infarct -ammonia and B12 levels not contributory -Neurology consult obtained and pending -increase seroquel dosing? 3. L1 burst fracture, conservatively managed -CT now shows fractures probably worse and slightly more retropulsed fragment. 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 Type 2 diabetes: (Insulin-dependent): -Adjust insulin as needed 5. Hypertension: BP was in acceptable range -Continue home meds with adjustment as needed 6. transaminitis -acute , cause?, hepatitis profile. -USS? -trend levels Dispo: wean 1:1 sitter, f/u reimbursement consultant recs. Result Diagram: 10/28/189 10/28/189 Results 24hrs Laboratory Tests Test 10/27/18 08:48 10/27/18 13:20 10/27/18 17:43 10/27/18 19:12 Bedside Glucose 123 104 131 Ammonia 14 Vitamin B12 Level > 1000 H Test 10/27/18 20:29 10/27/18 22:30 10/28/18 04:29 Bedside Glucose 138 Urine Color COLORLESS Urine Clarity CLEAR Urine pH 7.0 Urine Specific [place] 1.002 L Urine Ketones TRACE A Urine Nitrite NEGATIVE Urine Bilirubin NEGATIVE Urine Urobilinogen NEGATIVE Urine Leukocyte Esterase NEGATIVE Urine Microscopic RBC 3 Urine Microscopic WBC 1 Urine Hemoglobin 1+ H Urine Glucose 3+ H Urine Total Protein NEGATIVE White Blood Count 4.4 L Red Blood Count 3.21 L Hemoglobin 10.1 L Hematocrit 29.7 L Mean Corpuscular Volume 92.5 Mean Corpuscular 31.5 Hemoglobin Mean Corpuscular 34.0 Hemoglobin Concent Red Cell Distribution 13.0 Width Platelet Count 233 Mean Platelet Volume 10.1 Immature Granulocytes % 0.200 Neutrophils % 72.7 Lymphocytes % 12.2 L Monocytes % 10.4 Eosinophils % 4.3 Basophils % 0.2 Nucleated Red Blood 0.0 Cells % Immature Granulocytes # 0.010 Neutrophils # 3.2 Lymphocytes # 0.5 L Monocytes # 0.5 Eosinophils # 0.2 Basophils # 0.0 Nucleated Red Blood 0.0 Cells # Sodium Level 138 Potassium Level 3.5 Chloride Level 104 Carbon Dioxide Level 26 Anion Gap 8 Blood Urea Nitrogen 5 L Creatinine 0.51 Est Glomerular Filtrat Rate mL/min Glucose Level 199 # Calcium Level 8.4 Total Bilirubin 0.2 Direct Bilirubin 0.00 Indirect Bilirubin 0.2 Aspartate Amino 106 H Transf (AST/SGOT) Alanine 315 H Aminotransferase (ALT/SG PT) Alkaline Phosphatase 88 Total Protein 5.5 L Albumin 3.1 L Exam/Review of Systems Exam Vitals Vital Signs Date Temp Pulse Resp B/P (MAP) Pulse Ox O2 O2 Flow FiO2 Time Delivery Rate 10/28/18 98.5 92 16 144/63 96 01:19 (90) 10/26/18 Room Air 14:00 Intake and Output 10/27/18 10/27/18 10/28/18 1414:59 22:59 06:59 IntakeIntake Total 600 ml 1715 ml 268 ml OutputOutput Total 200 ml 350 ml BalanceBalance 400 ml 1365 ml 268 ml Results Results 24hrs Laboratory Tests Test 10/27/18 08:48 10/27/18 13:20 10/27/18 17:43 10/27/18 19:12 Bedside Glucose 123 104 131 Ammonia 14 Vitamin B12 Level > 1000 H Test 10/27/18 20:29 10/27/18 22:30 10/28/18 04:29 Bedside Glucose 138 Urine Color COLORLESS Urine Clarity CLEAR Urine pH 7.0 Urine Specific [place] 1.002 L Urine Ketones TRACE A Urine Nitrite NEGATIVE Urine Bilirubin NEGATIVE Urine Urobilinogen NEGATIVE Urine Leukocyte Esterase NEGATIVE Urine Microscopic RBC 3 Urine Microscopic WBC 1 Urine Hemoglobin 1+ H Urine Glucose 3+ H Urine Total Protein NEGATIVE White Blood Count 4.4 L Red Blood Count 3.21 L Hemoglobin 10.1 L Hematocrit 29.7 L Mean Corpuscular Volume 92.5 Mean Corpuscular 31.5 Hemoglobin Mean Corpuscular 34.0 Hemoglobin Concent Red Cell Distribution 13.0 Width Platelet Count 233 Mean Platelet Volume 10.1 Immature Granulocytes % 0.200 Neutrophils % 72.7 Lymphocytes % 12.2 L Monocytes % 10.4 Eosinophils % 4.3 Basophils % 0.2 Nucleated Red Blood 0.0 Cells % Immature Granulocytes # 0.010 Neutrophils # 3.2 Lymphocytes # 0.5 L Monocytes # 0.5 Eosinophils # 0.2 Basophils # 0.0 Nucleated Red Blood 0.0 Cells # Sodium Level 138 Potassium Level 3.5 Chloride Level 104 Carbon Dioxide Level 26 Anion Gap 8 Blood Urea Nitrogen 5 L Creatinine 0.51 Est Glomerular Filtrat Rate mL/min Glucose Level 199 # Calcium Level 8.4 Total Bilirubin 0.2 Direct Bilirubin 0.00 Indirect Bilirubin 0.2 Aspartate Amino 106 H Transf (AST/SGOT) Alanine 315 H Aminotransferase (ALT/SG PT) Alkaline Phosphatase 88 Total Protein 5.5 L Albumin 3.1 L Medications Medication Current Medications IV Flush (NS 3 ml) 3 ml PER PROTOCOL IV ; Start 10/25/18 at 18:00 Ondansetron HCl (Zofran Inj) 4 mg Q6H PRN IV NAUSEA/VOMITING; Start 10/25/18 at 18:00 Acetaminophen (Tylenol Tab) 650 mg Q6H PRN PO .PAIN 1-3 OR TEMP Last administe red on 10/25/18at 20:49; Admin Dose 650 MG; Start 10/25/18 at 18:00 Acetaminophen/ Hydrocodone Bitart ([place] (5/325)) 1 tab Q6H PRN PO .MOD PAIN 4- 6 Last administered on 10/27/18at 23:54; Admin Dose 1 TAB; Start 10/25/18 at 18:00 Docusate Sodium (Colace) 100 mg Q12H PRN PO .CONSTIPATION; Start 10/25/18 at 18:00 Zolpidem Tartrate (Ambien) 5 mg QHS PRN PO .INSOMNIA Last administered on 10/28/18 03:05; Admin Dose 5 MG; Start 10/25/18 at 18:00 Potassium Chloride 30 meq/ Sodium Chloride 1,015 ml @ 60 mls/hr [id number] IV Last administered on 10/27/18 17:50; Admin Dose 60 MLS/HR; Start 10/25/18 at 18:30 Quetiapine Fumarate (Seroquel) 25 mg BID PO Last administered on 10/27/18 20:27; Admin Dose 25 MG; Start 10/25/18 at 21:00 Diagnostic Test (Pha) (Accu-Chek) 1 ea 02 XX Last administered on 10/27/18 02: 10; Admin Dose 1 EA; Start 10/26/18 at 02:00 Insulin Aspart (Novolog Insulin Pen) NOVOLOG *MILD* ALGORITHM WITH MEALS BEDTIME SC Last administered on 10/26/18 20:46; Admin Dose 2 UNIT; Start 10/25/18 at 18:30 Miscellaneous Information 1 ea NOTE XX ; Start 10/25/18 at 18:00 Glucose (Glutose) 15 gm Q15M PRN PO DECREASED GLUCOSE; Start 10/25/18 at 18:00 Glucose (Glutose) 22.5 gm Q15M PRN PO DECREASED GLUCOSE; Start 10/25/18 at 18:00 Dextrose (D50w Syringe) 25 ml Q15M PRN IV DECREASED GLUCOSE; Start 10/25/18 at 18:00 Dextrose (D50w Syringe) 50 ml Q15M PRN IV DECREASED GLUCOSE Last administered on 10/26/18 17:33; Admin Dose 50 ML; Start 10/25/18 at 18:00 Glucagon (Glucagen) 1 mg Q15M PRN IM DECREASED GLUCOSE; Start 10/25/18 at 18:00 Glucose (Glutose) 15 gm Q15M PRN BUCCAL DECREASED GLUCOSE; Start 10/25/18 at 18:00 Heparin Sodium (Porcine) (Heparin (5000 Units/1ml)) 5,000 unit BID SC Last adm inistered on 10/26/18 08:58; Admin Dose 5,000 UNIT; Start 10/26/18 at 09:00; Status Hold Morphine Sulfate (morphine) 6 mg Q4H PRN PO SEVERE PAIN LEVEL 7-10 Last administered on 10/28/18 03:05; Admin Dose 6 MG; Start 10/26/18 at 14:30 Insulin Aspart (Novolog Insulin Pen) 3 unit WITH MEALS SC Last administered on 10/27/18 17:49; Admin Dose 3 UNIT; Start 10/26/18 at 18:00 Insulin Glargine (Lantus) 7 units QHS SC Last administered on 10/27/18 20:37; Admin Dose 7 UNITS; Start 10/26/18 at 21:00 Sucralfate (Carafate Susp) 1 gm QID PO Last administered on 10/27/18 20:27; Admin Dose 1 GM; Start 10/27/18 at 13:00 Pantoprazole (Protonix Tab) 40 mg BID@06,18 PO Last administered on 10/28/18 05:42; Admin Dose 40 MG; Start 10/27/18 at 18:00 SYLVIE WU Oct 28, 2018 06:40
[2018-10-28] MEDS: INSULIN ASPART [NOVOLOG] 3 ML PEN SC SCH ×7 (08:00→20:39)
[2018-10-28] MEDS: SUCRALFATE (100 MG/ML) 10ML CUP PO SCH ×4 (08:50→20:38)
[2018-10-28] MEDS: QUETIAPINE 25 MG TAB PO SCH ×2 (08:50→20:38)
[2018-10-28] MEDS: DOCUSATE SODIUM 100 MG CAP PO SCH ×2 (08:50→20:38)
[2018-10-28 09:01] VITALS: BP 142/65; PULSE 80; RESP 20
--- NOTE | 2018-10-28 12:15 | PN ---
Date/Time of Note Date/Time of Note DATE: 10/28/18 TIME: 12:06 Assessment/Plan VTE Prophylaxis Risk score (from [facility])>0 risk: 3 SCD applied (from [facility]): Yes Pharmacological prophylaxis: other (scds) Lines/Catheters IV Catheter Type (from Nrsg): Peripheral IV Urinary Cath still in place: No Assessment/Plan Hospital Course Summary Assessment and Plan: Assessment: Reported melena/Coffee-ground emesis Normocytic anemia Encephalopathy -unclear etiology acute vs chronic Elevated LFTs -Hepatitis serology negative HTN DM L1 burst fracture -Managed conservatively Plan: PPI BID/ continue Carafate Called daughter Leslee Grijalva [phone] and - Tarsha called back and states patient's sister Gwen is in charge of making decisions I spoke to Gwen Young [phone]- who agreed to EGD - I reviewed risks/benefits- she verbalized understanding and is agreeable to procedure Patient ate breakfast this am- therefore she will be NPO after midnight for EGD tomorrow Abd u/s pending, will also ordered ammonia Hold heparin in am for EGD 10/29/18 Patient seen in collaboration with Dr. Matute/Cheri Subjective: Course reviewed with nursing staff Patient interviewed and examined All labs, imaging and other results reviewed The patient appears comfortable sitter at bedside, no apparent distress noted. No overt signs of GI bleed. PHYSICAL EXAMINATION: GENERAL: Well developed, well nourished, alert & oriented x1 to name, confused SKIN: No lesions EYES: Pupils equal reactive to light, no discharge. EARS/NOSE AND THROAT: Ears normal, nose normal NECK: Supple, no masses CHEST: Inspection within normal limits. CARDIOVASCULAR: Heart: Regular rate and rhythm RESPIRATORY: Lungs clear to auscultation GASTROINTESTINAL AND LIVER: Abdomen: Soft, non tenderness, non-distended, no hernias, no masses, no organomegaly, no ascites, no guarding, no rebound tenderness, normoactive bowel sounds. Rectal: Deferred. EXTREMITIES: No cyanosis, clubbing or edema. Result Diagram: 10/28/189 10/28/18428 Results 24hrs Laboratory Tests Test 10/27/18 13:20 10/27/18 17:43 10/27/18 19:12 3/5/19 20:29 Bedside Glucose 104 131 138 Ammonia 14 Vitamin B12 Level > 1000 H Test 10/27/18 22:30 10/28/18 04:29 10/28/18 06:59 10/28/18 08:44 Urine Color COLORLESS Urine Clarity CLEAR Urine pH 7.0 Urine Specific [place] 1.002 L Urine Ketones TRACE A Urine Nitrite NEGATIVE Urine Bilirubin NEGATIVE Urine Urobilinogen NEGATIVE Urine Leukocyte Esterase NEGATIVE Urine Microscopic RBC 3 Urine Microscopic WBC 1 Urine Hemoglobin 1+ H Urine Glucose 3+ H Urine Total Protein NEGATIVE White Blood Count 4.4 L Red Blood Count 3.21 L Hemoglobin 10.1 L Hematocrit 29.7 L Mean Corpuscular Volume 92.5 Mean Corpuscular 31.5 Hemoglobin Mean Corpuscular 34.0 Hemoglobin Concent Red Cell Distribution 13.0 Width Platelet Count 233 Mean Platelet Volume 10.1 Immature Granulocytes % 0.200 Neutrophils % 72.7 Lymphocytes % 12.2 L Monocytes % 10.4 Eosinophils % 4.3 Basophils % 0.2 Nucleated Red Blood 0.0 Cells % Immature Granulocytes # 0.010 Neutrophils # 3.2 Lymphocytes # 0.5 L Monocytes # 0.5 Eosinophils # 0.2 Basophils # 0.0 Nucleated Red Blood 0.0 Cells # Sodium Level 138 Potassium Level 3.5 Chloride Level 104 Carbon Dioxide Level 26 Anion Gap 8 Blood Urea Nitrogen 5 L Creatinine 0.51 Est Glomerular Filtrat Rate mL/min Glucose Level 199 # Calcium Level 8.4 Total Bilirubin 0.2 Direct Bilirubin 0.00 Indirect Bilirubin 0.2 Aspartate Amino 106 H Transf (AST/SGOT) Alanine 315 H Aminotransferase (ALT/SG PT) Alkaline Phosphatase 88 Total Protein 5.5 L Albumin 3.1 L Hepatitis B Surface NEGATIVE Antigen Hepatitis B Core NEGATIVE Total Antibody Hepatitis C Antibody NEGATIVE Bedside Glucose 134 Exam/Review of Systems Exam Vitals Vital Signs Date Temp Pulse Resp B/P (MAP) Pulse Ox O2 O2 Flow FiO2 Time Delivery Rate 10/28/18 97.8 80 20 142/65 93 09:01 (90) 10/26/18 Room Air 14:00 Intake and Output 10/27/18 10/27/18 10/28/18 1515:00 23:00 07:00 IntakeIntake Total 600 ml 1715 ml 1018 ml OutputOutput Total 200 ml 350 ml BalanceBalance 400 ml 1365 ml 1018 ml Results Results 24hrs Laboratory Tests Test 10/27/18 13:20 10/27/18 17:43 10/27/18 19:12 10/27/18 20:29 Bedside Glucose 104 131 138 Ammonia 14 Vitamin B12 Level > 1000 H Test 10/27/18 22:30 10/28/18 04:29 10/28/18 06:59 10/28/18 08:44 Urine Color COLORLESS Urine Clarity CLEAR Urine pH 7.0 Urine Specific [place] 1.002 L Urine Ketones TRACE A Urine Nitrite NEGATIVE Urine Bilirubin NEGATIVE Urine Urobilinogen NEGATIVE Urine Leukocyte Esterase NEGATIVE Urine Microscopic RBC 3 Urine Microscopic WBC 1 Urine Hemoglobin 1+ H Urine Glucose 3+ H Urine Total Protein NEGATIVE White Blood Count 4.4 L Red Blood Count 3.21 L Hemoglobin 10.1 L Hematocrit 29.7 L Mean Corpuscular Volume 92.5 Mean Corpuscular 31.5 Hemoglobin Mean Corpuscular 34.0 Hemoglobin Concent Red Cell Distribution 13.0 Width Platelet Count 233 Mean Platelet Volume 10.1 Immature Granulocytes % 0.200 Neutrophils % 72.7 Lymphocytes % 12.2 L Monocytes % 10.4 Eosinophils % 4.3 Basophils % 0.2 Nucleated Red Blood 0.0 Cells % Immature Granulocytes # 0.010 Neutrophils # 3.2 Lymphocytes # 0.5 L Monocytes # 0.5 Eosinophils # 0.2 Basophils # 0.0 Nucleated Red Blood 0.0 Cells # Sodium Level 138 Potassium Level 3.5 Chloride Level 104 Carbon Dioxide Level 26 Anion Gap 8 Blood Urea Nitrogen 5 L Creatinine 0.51 Est Glomerular Filtrat Rate mL/min Glucose Level 199 # Calcium Level 8.4 Total Bilirubin 0.2 Direct Bilirubin 0.00 Indirect Bilirubin 0.2 Aspartate Amino 106 H Transf (AST/SGOT) Alanine 315 H Aminotransferase (ALT/SG PT) Alkaline Phosphatase 88 Total Protein 5.5 L Albumin 3.1 L Hepatitis B Surface NEGATIVE Antigen Hepatitis B Core NEGATIVE Total Antibody Hepatitis C Antibody NEGATIVE Bedside Glucose 134 Medications Medication Current Medications IV Flush (NS 3 ml) 3 ml PER PROTOCOL IV ; Start 10/25/18 at 18:00 Ondansetron HCl (Zofran Inj) 4 mg Q6H PRN IV NAUSEA/VOMITING; Start 10/25/18 at 18:00 Acetaminophen (Tylenol Tab) 650 mg Q6H PRN PO .PAIN 1-3 OR TEMP Last administered on 10/25/18at 20:49; Admin Dose 650 MG; Start 10/25/18 at 18:00 Acetaminophen/ Hydrocodone Bitart ([place] (5/325)) 1 tab Q6H PRN PO .MOD PAIN 4- 6 Last administered on 10/27/18 23:54; Admin Dose 1 TAB; Start 10/25/18 at 18:00 Docusate Sodium (Colace) 100 mg Q12H PRN PO .CONSTIPATION; Start 10/25/18 at 18:00 Zolpidem Tartrate (Ambien) 5 mg QHS PRN PO .INSOMNIA Last administered on 10/28/18 03:05; Admin Dose 5 MG; Start 10/25/18 at 18:00 Potassium Chloride 30 meq/ Sodium Chloride 1,015 ml @ 60 mls/hr [id number] IV Last administered on 10/27/18 17:50; Admin Dose 60 MLS/HR; Start 10/25/18 at 18:30 Quetiapine Fumarate (Seroquel) 25 mg BID PO Last administered on 10/28/18 08:50; Admin Dose 25 MG; Start 10/25/18 at 21:00 Diagnostic Test (Pha) (Accu-Chek) 1 ea 02 XX Last administered on 10/27/18 02:10; Admin Dose 1 EA; Start 10/26/18 at 02:00 Insulin Aspart (Novolog Insulin Pen) NOVOLOG *MILD* ALGORITHM WITH MEALS BEDTIME SC Last administered on 10/26/18 20:46; Admin Dose 2 UNIT; Start 10/25/18 at 18:30 Miscellaneous Information 1 ea NOTE XX ; Start 10/25/18 at 18:00 Glucose (Glutose) 15 gm Q15M PRN PO DECREASED GLUCOSE; Start 10/25/18 at 18:00 Glucose (Glutose) 22.5 gm Q15M PRN PO DECREASED GLUCOSE; Start 10/25/18 at 18:00 Dextrose (D50w Syringe) 25 ml Q15M PRN IV DECREASED GLUCOSE; Start 10/25/18 at 18:00 Dextrose (D50w Syringe) 50 ml Q15M PRN IV DECREASED GLUCOSE Last administered on 10/26/18 17:33; Admin Dose 50 ML; Start 10/25/18 at 18:00 Glucagon (Glucagen) 1 mg Q15M PRN IM DECREASED GLUCOSE; Start 10/25/18 at 18:00 Glucose (Glutose) 15 gm Q15M PRN BUCCAL DECREASED GLUCOSE; Start 10/25/18 at 18:00 Heparin Sodium (Porcine) (Heparin (5000 Units/1ml)) 5,000 unit BID SC Last administered on 10/26/18 08:58; Admin Dose 5,000 UNIT; Start 10/26/18 at 09:00; Status Hold Morphine Sulfate (morphine) 6 mg Q4H PRN PO SEVERE PAIN LEVEL 7-10 Last administered on 10/28/18 03:05; Admin Dose 6 MG; Start 10/26/18 at 14:30 Insulin Aspart (Novolog Insulin Pen) 3 unit WITH MEALS SC Last administered on 10/27/18 17:49; Admin Dose 3 UNIT; Start 10/26/18 at 18:00 Insulin Glargine (Lantus) 7 units QHS SC Last administered on 10/27/18 20:37; Admin Dose 7 UNITS; Start 10/26/18 at 21:00 Sucralfate (Carafate Susp) 1 gm QID PO Last administered on 10/28/18 08:50; Admin Dose 1 GM; Start 10/27/18 at 13:00 Pantoprazole (Protonix Tab) 40 mg BID@06,18 PO Last administered on 10/28/18 05:42; Admin Dose 40 MG; Start 10/27/18 at 18:00 Docusate Sodium (Colace) 100 mg BID PO Last administered on 10/28/18 08:50; Admin Dose 100 MG; Start 10/28/18 at 09:00 EM DRAPER Oct 28, 2018 12:15
[2018-10-28] MEDS: POTASSIUM CHLORIDE 30 MEQ in SOD CHLORIDE 0.9% 1,000 ML IV SCH (12:40)
--- NOTE | 2018-10-28 13:04 | CONS ---
Assessment/Plan Assessment/Plan Hospital Course 82 F c/ multiple comorbidities, who presents for evaluation following a recurrent fall.. She was noted to be confused, for which neurology is consulted... MRI brain is notable for scap swelling which suggests recent head trauma...which is a likely contributor... Superimposed delirium is possible...with the assumption that she has some degree of cognitive dysfunction at baseline.. P: Fx management per surgery Add UDS [place] as necessary Agree w/ seroquel low dose as needed for agitation.. Otherwise, limit sedating medications where possible Other management per primary Will follow clinically Consultation Date/Type/Reason Admit Date/Time Oct 25, 2018 at 13:25 Type of Consult Neurology Reason for Consultation confusion Requesting Provider: SYLVIE WU Date/Time of Note DATE: 10/28/18 TIME: 13:04 Hx of Present Illness This is an 82-year-old female with a history of hypertension, type 2 diabetes (insulin-dependent), recent L1 burst fracture who presented to ER because of frequent falls. Family not able to care for the patient properly. Patient was just discharged from here a week ago after she was admitted for L1 burst fracture. At that time she was evaluated by neurosurgery and she was conservatively managed. TLCO braces were placed at that time. 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 She presented with a potassium of 5.4, glucose around 300. WBC 12,000, sodium 132. 12 PT ROS o/w limited by confusion Exam/Review of Systems Exam Vitals Vital Signs Date Temp Pulse Resp B/P (MAP) Pulse Ox O2 O2 Flow FiO2 Time Delivery Rate 10/28/18 97.8 80 20 142/65 93 09:01 (90) 10/26/18 Room Air 14:00 Intake and Output 10/27/18 10/27/18 10/28/18 1515:00 23:00 07:00 IntakeIntake Total 600 ml 1715 ml 1018 ml OutputOutput Total 200 ml 350 ml BalanceBalance 400 ml 1365 ml 1018 ml Exam PE: Gen Appearance: No Apparent Distress HEENT: Normocephalic Cardiovascular: Regular rate Abdomen: Soft Extremities: Dry NE: The patient was alert though disoriented... Language was normal... Fund of knowledge was limited. Cranial nerve examination was limited by mental status. Pupils were equal and reactive to light. There was no afferent pupillary defect. Funduscopic examination was limited. Face was grossly symmetric, w/ present corneal and cough reflexes. Tone was normal. Muscle bulk was normal. I did not see fasciculations. The patient moved her limbs symmetrically. Coordination and gait testing was limited by mental status. Arm and leg reflexes were symmetric. Traore's sign was absent. Plantar responses were flexor. Results Result Diagram: 10/28/18 0429 10/28/18 0429 Results 24hrs Laboratory Tests Test 10/27/18 13:20 10/27/18 17:43 10/27/18 19:12 10/27/18 20:29 Bedside Glucose 104 131 138 Ammonia 14 Vitamin B12 Level > 1000 H Test 10/27/18 22:30 10/28/18 04:29 10/28/18 06:59 10/28/18 08:44 Urine Color COLORLESS Urine Clarity CLEAR Urine pH 7.0 Urine Specific [place] 1.002 L Urine Ketones TRACE A Urine Nitrite NEGATIVE Urine Bilirubin NEGATIVE Urine Urobilinogen NEGATIVE Urine Leukocyte Esterase NEGATIVE Urine Microscopic RBC 3 Urine Microscopic WBC 1 Urine Hemoglobin 1+ H Urine Glucose 3+ H Urine Total Protein NEGATIVE White Blood Count 4.4 L Red Blood Count 3.21 L Hemoglobin 10.1 L Hematocrit 29.7 L Mean Corpuscular Volume 92.5 Mean Corpuscular 31.5 Hemoglobin Mean Corpuscular 34.0 Hemoglobin Concent Red Cell Distribution 13.0 Width Platelet Count 233 Mean Platelet Volume 10.1 Immature Granulocytes % 0.200 Neutrophils % 72.7 Lymphocytes % 12.2 L Monocytes % 10.4 Eosinophils % 4.3 Basophils % 0.2 Nucleated Red Blood 0.0 Cells % Immature Granulocytes # 0.010 Neutrophils # 3.2 Lymphocytes # 0.5 L Monocytes # 0.5 Eosinophils # 0.2 Basophils # 0.0 Nucleated Red Blood 0.0 Cells # Sodium Level 138 Potassium Level 3.5 Chloride Level 104 Carbon Dioxide Level 26 Anion Gap 8 Blood Urea Nitrogen 5 L Creatinine 0.51 Est Glomerular Filtrat Rate mL/min Glucose Level 199 # Calcium Level 8.4 Total Bilirubin 0.2 Direct Bilirubin 0.00 Indirect Bilirubin 0.2 Aspartate Amino 106 H Transf (AST/SGOT) Alanine 315 H Aminotransferase (ALT/SG PT) Alkaline Phosphatase 88 Total Protein 5.5 L Albumin 3.1 L Hepatitis B Surface NEGATIVE Antigen Hepatitis B Core NEGATIVE Total Antibody Hepatitis C Antibody NEGATIVE Bedside Glucose 134 Medications Medication Current Medications IV Flush (NS 3 ml) 3 ml PER PROTOCOL IV ; Start 10/25/18 at 18:00 Ondansetron HCl (Zofran Inj) 4 mg Q6H PRN IV NAUSEA/VOMITING; Start 10/25/18 at 18:00 Acetaminophen (Tylenol Tab) 650 mg Q6H PRN PO .PAIN 1-3 OR TEMP Last administered on 10/25/18at 20:49; Admin Dose 650 MG; Start 10/25/18 at 18:00 Acetaminophen/ Hydrocodone Bitart ([place] (5/325)) 1 tab Q6H PRN PO .MOD PAIN 4- 6 Last administered on 10/27/18 23:54; Admin Dose 1 TAB; Start 10/25/18 at 18:00 Docusate Sodium (Colace) 100 mg Q12H PRN PO .CONSTIPATION; Start 10/25/18 at 18:00 Zolpidem Tartrate (Ambien) 5 mg QHS PRN PO .INSOMNIA Last administered on 10/28/18 03:05; Admin Dose 5 MG; Start 10/25/18 at 18:00 Potassium Chloride 30 meq/ Sodium Chloride 1,015 ml @ 60 mls/hr [id number] IV Last administered on 10/28/18at 12:40; Admin Dose 60 MLS/HR; Start 10/25/18 at 18:30 Quetiapine Fumarate (Seroquel) 25 mg BID PO Last administered on 10/28/18 08:50; Admin Dose 25 MG; Start 10/25/18 at 21:00 Diagnostic Test (Pha) (Accu-Chek) 1 ea 02 XX Last administered on 10/27/18 02:10; Admin Dose 1 EA; Start 10/26/18 at 02:00 Insulin Aspart (Novolog Insulin Pen) NOVOLOG *MILD* ALGORITHM WITH MEALS BEDTIME SC Last administered on 10/26/18at 20:46; Admin Dose 2 UNIT; Start 10/25/18 at 18:30 Miscellaneous Information 1 ea NOTE XX ; Start 10/25/18 at 18:00 Glucose (Glutose) 15 gm Q15M PRN PO DECREASED GLUCOSE; Start 10/25/18 at 18:00 Glucose (Glutose) 22.5 gm Q15M PRN PO DECREASED GLUCOSE; Start 10/25/18 at 18:00 Dextrose (D50w Syringe) 25 ml Q15M PRN IV DECREASED GLUCOSE; Start 10/25/18 at 18:00 Dextrose (D50w Syringe) 50 ml Q15M PRN IV DECREASED GLUCOSE Last administered on 10/26/18at 17:33; Admin Dose 50 ML; Start 10/25/18 at 18:00 Glucagon (Glucagen) 1 mg Q15M PRN IM DECREASED GLUCOSE; Start 10/25/18 at 18:00 Glucose (Glutose) 15 gm Q15M PRN BUCCAL DECREASED GLUCOSE; Start 10/25/18 at 18:00 Morphine Sulfate (morphine) 6 mg Q4H PRN PO SEVERE PAIN LEVEL 7-10 Last administered on 10/28/18at 03:05; Admin Dose 6 MG; Start 10/26/18 at 14:30 Insulin Aspart (Novolog Insulin Pen) 3 unit WITH MEALS SC Last administered on 10/27/18at 17:49; Admin Dose 3 UNIT; Start 10/26/18 at 18:00 Insulin Glargine (Lantus) 7 units QHS SC Last administered on 10/27/18at 20:37; Admin Dose 7 UNITS; Start 10/26/18 at 21:00 Sucralfate (Carafate Susp) 1 gm QID PO Last administered on 10/28/18at 08:50; Admin Dose 1 GM; Start 10/27/18 at 13:00 Pantoprazole (Protonix Tab) 40 mg BID@06,18 PO Last administered on 10/28/18at 05:42; Admin Dose 40 MG; Start 10/27/18 at 18:00 Docusate Sodium (Colace) 100 mg BID PO Last administered on 10/28/18 08:50; Admin Dose 100 MG; Start 10/28/18 at 09:00 Heparin Sodium (Porcine) (Heparin (5000 Units/1ml)) 5,000 unit BID SC ; Start 10/29/18 at 21:00 Past Medical History reviewed Medical History: other (See HPI) Home Meds Active Scripts Hydrocodone Bit-Acetaminophen (Hydrocodone Bit-APAP) 5-325MG Tablet, 1 TAB PO Q6H PRN for .MOD PAIN 4-6, #20 TAB Prov:BRYCE,BOLATITO M. 10/20/18 Quetiapine Fumarate* (Seroquel*) 25 Mg Tablet, 25 MG PO BID, #60 TAB Prov:SYLVIE WU. 10/20/18 Syringe, Disposable, 1ML (MONOJECT MEGELLAN TB SYRINGE) 1 Each Disp.syrin, EACH MC QHS, #100 Prov:SYLVIE WU. 10/20/18 Insulin Glargine* (Lantus*) 100 Unit/Ml Soln, 7 UNIT SC QHS, #3 VIAL 1 Refill Prov:SYLVIE WU. 10/20/18 Reported Medications Losartan-Hydrochlorothiazide (Losartan-HCTZ) 100-25 Mg Tab, 1 TAB PO DAILY, TAB 03/10/18 Dapagliflozin Propanediol (Farxiga) 5 Mg Tablet, 5 MG PO DAILY, #30 TAB 03/10/18 Metformin Hcl* (Metformin Hcl*) 1,000 Mg Tablet, 1000 MG PO WITH BREAKFAST DINNE, #60 TAB 03/10/18 Linagliptin (TRADJENTA) 5 Mg Tablet, 5 MG PO DAILY, TAB 03/10/18 Medications Current Medications IV Flush (NS 3 ml) 3 ml PER PROTOCOL IV ; Start 10/25/18 at 18:00 Ondansetron HCl (Zofran Inj) 4 mg Q6H PRN IV NAUSEA/VOMITING; Start 10/25/18 at 18:00 Acetaminophen (Tylenol Tab) 650 mg Q6H PRN PO .PAIN 1-3 OR TEMP Last administered on 10/25/18at 20:49; Admin Dose 650 MG; Start 10/25/18 at 18:00 Acetaminophen/ Hydrocodone Bitart ([place] (5/325)) 1 tab Q6H PRN PO .MOD PAIN 4- 6 Last administered on 10/27/18at 23:54; Admin Dose 1 TAB; Start 10/25/18 at 18:00 Docusate Sodium (Colace) 100 mg Q12H PRN PO .CONSTIPATION; Start 10/25/18 at 18:00 Zolpidem Tartrate (Ambien) 5 mg QHS PRN PO .INSOMNIA Last administered on 10/28/18at 03:05; Admin Dose 5 MG; Start 10/25/18 at 18:00 Potassium Chloride 30 meq/ Sodium Chloride 1,015 ml @ 60 mls/hr [id number] IV Last administered on 10/28/18 12:40; Admin Dose 60 MLS/HR; Start 10/25/18 at 18:30 Quetiapine Fumarate (Seroquel) 25 mg BID PO Last administered on 10/28/18 08:50; Admin Dose 25 MG; Start 10/25/18 at 21:00 Diagnostic Test (Pha) (Accu-Chek) 1 ea 02 XX Last administered on 10/27/18 02:10; Admin Dose 1 EA; Start 10/26/18 at 02:00 Insulin Aspart (Novolog Insulin Pen) NOVOLOG *MILD* ALGORITHM WITH MEALS BEDTIME SC Last administered on 10/26/18 20:46; Admin Dose 2 UNIT; Start 10/25/18 at 18:30 Miscellaneous Information 1 ea NOTE XX ; Start 10/25/18 at 18:00 Glucose (Glutose) 15 gm Q15M PRN PO DECREASED GLUCOSE; Start 10/25/18 at 18:00 Glucose (Glutose) 22.5 gm Q15M PRN PO DECREASED GLUCOSE; Start 10/25/18 at 18:00 Dextrose (D50w Syringe) 25 ml Q15M PRN IV DECREASED GLUCOSE; Start 10/25/18 at 18:00 Dextrose (D50w Syringe) 50 ml Q15M PRN IV DECREASED GLUCOSE Last administered on 10/26/18 17:33; Admin Dose 50 ML; Start 10/25/18 at 18:00 Glucagon (Glucagen) 1 mg Q15M PRN IM DECREASED GLUCOSE; Start 10/25/18 at 18:00 Glucose (Glutose) 15 gm Q15M PRN BUCCAL DECREASED GLUCOSE; Start 10/25/18 at 18:00 Morphine Sulfate (morphine) 6 mg Q4H PRN PO SEVERE PAIN LEVEL 7-10 Last administered on 10/28/18 03:05; Admin Dose 6 MG; Start 10/26/18 at 14:30 Insulin Aspart (Novolog Insulin Pen) 3 unit WITH MEALS SC Last administered on 10/27/18 17:49; Admin Dose 3 UNIT; Start 10/26/18 at 18:00 Insulin Glargine (Lantus) 7 units QHS SC Last administered on 10/27/18 20:37; Admin Dose 7 UNITS; Start 10/26/18 at 21:00 Sucralfate (Carafate Susp) 1 gm QID PO Last administered on 10/28/18at 08:50; Admin Dose 1 GM; Start 10/27/18 at 13:00 Pantoprazole (Protonix Tab) 40 mg BID@06,18 PO Last administered on 10/28/18at 05:42; Admin Dose 40 MG; Start 10/27/18 at 18:00 Docusate Sodium (Colace) 100 mg BID PO Last administered on 10/28/18at 08:50; Admin Dose 100 MG; Start 10/28/18 at 09:00 Heparin Sodium (Porcine) (Heparin (5000 Units/1ml)) 5,000 unit BID SC ; Start 10/29/18 at 21:00 Allergies: Coded Allergies: No Known Allergies (Verified Allergy, Unknown, 10/18/18) Past Surgical History Past Surgical Hx: other (See HPI) Social History Alcohol Use: none Smoking Status: Never smoker Drug Use: none RYAN BRITTON NP Oct 28, 2018 13:04 YVAN GOODRICH Oct 28, 2018 13:28
[2018-10-28 14:00] VITALS: BP 140/62; PULSE 96; RESP 18
--- NOTE | 2018-10-28 17:52 | PREAC ---
Date/Time of Note Date/Time of Note DATE: 10/28/18 TIME: 17:51 Anesthesia Eval and Record Evaluation Time Pre-Procedure Interview DATE: 10/28/18 TIME: 17:51 Age 82 Sex female NPO: 8 hrs Preoperative diagnosis Reported melena/coffee-ground emesis Planned procedure EGD Past Medical History Past Medical History: Includes Cardio: HTN Endo: Diabetes Psych: Other (Dementia) Surgery & Anesthesia Issues No known issue Meds Anticoagulation: No Beta Fabi within 24 hr: No Reason Beta Fabi not given: Pt. not on B-Fabi Active Scripts Hydrocodone Bit-Acetaminophen (Hydrocodone Bit-APAP) 5-325MG Tablet, 1 TAB PO Q6H PRN for .MOD PAIN 4-6, #20 TAB Prov:SYLVIE WU 10/20/18 Quetiapine Fumarate* (Seroquel*) 25 Mg Tablet, 25 MG PO BID, #60 TAB Prov:SYLVIE WU 10/20/18 Syringe, Disposable, 1ML (MONOJECT MEGELLAN TB SYRINGE) 1 Each Disp.syrin, EACH MC QHS, #100 Prov:SYLVIE WU 10/20/18 Insulin Glargine* (Lantus*) 100 Unit/Ml Soln, 7 UNIT SC QHS, #3 VIAL 1 Refill Prov:SYLVIE WU 10/20/18 Reported Medications Losartan-Hydrochlorothiazide (Losartan-HCTZ) 100-25 Mg Tab, 1 TAB PO DAILY, TAB 03/10/18 Dapagliflozin Propanediol (Farxiga) 5 Mg Tablet, 5 MG PO DAILY, #30 TAB 03/10/18 Metformin Hcl* (Metformin Hcl*) 1,000 Mg Tablet, 1000 MG PO WITH BREAKFAST DINNE, #60 TAB 03/10/18 Linagliptin (TRADJENTA) 5 Mg Tablet, 5 MG PO DAILY, TAB 03/10/18 Current Medications IV Flush (NS 3 ml) 3 ml PER PROTOCOL IV ; Start 10/25/18 at 18:00 Ondansetron HCl (Zofran Inj) 4 mg Q6H PRN IV NAUSEA/VOMITING; Start 10/25/18 at 18:00 Acetaminophen (Tylenol Tab) 650 mg Q6H PRN PO .PAIN 1-3 OR TEMP Last administered on 10/25/18at 20:49; Admin Dose 650 MG; Start 10/25/18 at 18:00 Acetaminophen/ Hydrocodone Bitart ([place] (5/325)) 1 tab Q6H PRN PO .MOD PAIN 4- 6 Last administered on 10/27/18 23:54; Admin Dose 1 TAB; Start 10/25/18 at 18:00 Docusate Sodium (Colace) 100 mg Q12H PRN PO .CONSTIPATION; Start 10/25/18 at 18:00 Zolpidem Tartrate (Ambien) 5 mg QHS PRN PO .INSOMNIA Last administered on 10/28/18 03:05; Admin Dose 5 MG; Start 10/25/18 at 18:00 Potassium Chloride 30 meq/ Sodium Chloride 1,015 ml @ 60 mls/hr [id number] IV Last administered on 10/28/18 12:40; Admin Dose 60 MLS/HR; Start 10/25/18 at 18:30 Quetiapine Fumarate (Seroquel) 25 mg BID PO Last administered on 10/28/18 08:50; Admin Dose 25 MG; Start 10/25/18 at 21:00 Diagnostic Test (Pha) (Accu-Chek) 1 ea 02 XX Last administered on 10/27/18 02:10; Admin Dose 1 EA; Start 10/26/18 at 02:00 Insulin Aspart (Novolog Insulin Pen) NOVOLOG *MILD* ALGORITHM WITH MEALS BEDTIME SC Last administered on 10/28/18 17:21; Admin Dose 2 UNIT; Start 10/25/18 at 18:30 Miscellaneous Information 1 ea NOTE XX ; Start 10/25/18 at 18:00 Glucose (Glutose) 15 gm Q15M PRN PO DECREASED GLUCOSE; Start 10/25/18 at 18:00 Glucose (Glutose) 22.5 gm Q15M PRN PO DECREASED GLUCOSE; Start 10/25/18 at 18:00 Dextrose (D50w Syringe) 25 ml Q15M PRN IV DECREASED GLUCOSE; Start 10/25/18 at 18:00 Dextrose (D50w Syringe) 50 ml Q15M PRN IV DECREASED GLUCOSE Last administered on 10/26/18 17:33; Admin Dose 50 ML; Start 10/25/18 at 18:00 Glucagon (Glucagen) 1 mg Q15M PRN IM DECREASED GLUCOSE; Start 10/25/18 at 18:00 Glucose (Glutose) 15 gm Q15M PRN BUCCAL DECREASED GLUCOSE; Start 10/25/18 at 18:00 Morphine Sulfate (morphine) 6 mg Q4H PRN PO SEVERE PAIN LEVEL 7-10 Last administered on 10/28/18at 03:05; Admin Dose 6 MG; Start 10/26/18 at 14:30 Insulin Aspart (Novolog Insulin Pen) 3 unit WITH MEALS SC Last administered on 10/28/18 17:24; Admin Dose 3 UNIT; Start 10/26/18 at 18:00 Insulin Glargine (Lantus) 7 units QHS SC Last administered on 10/27/18 20:37; Admin Dose 7 UNITS; Start 10/26/18 at 21:00 Sucralfate (Carafate Susp) 1 gm QID PO Last administered on 10/28/18 17:19; Admin Dose 1 GM; Start 10/27/18 at 13:00 Pantoprazole (Protonix Tab) 40 mg BID@06,18 PO Last administered on 10/28/18at 17:19; Admin Dose 40 MG; Start 10/27/18 at 18:00 Docusate Sodium (Colace) 100 mg BID PO Last administered on 10/28/18 08:50; Admin Dose 100 MG; Start 10/28/18 at 09:00 Heparin Sodium (Porcine) (Heparin (5000 Units/1ml)) 5,000 unit BID SC ; Start 10/29/18 at 21:00 Meds reviewed: Yes Allergies Coded Allergies: No Known Allergies (Verified Allergy, Unknown, 10/18/18) Allergies Reviewed: Yes Labs/Studies Labs Reviewed: Reviewed by anesthesiologist Result Diagram: 10/28/18 0429 10/28/18 0429 Laboratory Tests 10/28/18 04:29 test: N/A Pre-procedure Exam Last vitals Vital Signs Date Temp Pulse Resp B/P (MAP) Pulse Ox O2 O2 Flow FiO2 Time Delivery Rate 10/28/18 98.3 96 18 140/62 97 Room Air 14:00 (88) Airway: Adequate mouth opening Mallampati: Mallampati II Teeth: Normal Lung: Normal Heart: Normal ASA Physical Status ASA physical status: 2 Emergency: None Planned Anesthetic General/MAC: MAC Pre-operative Attestations Prior to commencing anesthesia and surgery, the patient was re-evaluated, there was verification of: *The patient's identity *The results of appropriate recent lab work and preoperative vital signs *The above evaluation not changing prior to induction *Anesthetic plan, risk benefits, alternative and complications discussed with patient/family; questions answered; patient/family understands, accepts and wishes to proceed. SHINE COOPER Oct 28, 2018 17:52
[2018-10-28 19:46] VITALS: BP 145/88; PULSE 97; RESP 20
[2018-10-28] MEDS: INSULIN GLARGINE [LANTus] (100 UNITS/ML) SYG SC SCH (20:42)
--- NOTE | 2018-10-28 23:52 | CONS ---
Assessment/Plan Assessment/Plan Assessment/Plan (Daily) Date of consultation: 10/28/2018 Requesting physician: Dr. Johansen with the hospitalist service Consulting service: Neurosurgery This is a 82-year-old female who has had frequent falls and was admitted a week ago and found to have a L1 compression fracture. The patient was evaluated by one of my neurosurgery colleagues and recommended to have conservative management with a TLSO brace. The patient was discharged home but apparently she was not compliant with a TLSO brace. The patient reportedly has had multiple more falls, is confused and cognitively impaired and has presented again to the emergency department and has been readmitted. She was found to be hyperkalemic at the time of admission. A new neurosurgery consultation has been requested. No new weakness or numbness of her upper or lower extremities has been reported. There has been no bowel or bladder dysfunction noted. The patient denies neck pain, mid back pain or low back pain. She denies radiating lower extremity pain or numbness. Past medical history: Diabetes, hypertension Allergies:No known drug allergies Review of systems: The patient denies chest pain shortness of breath, weakness or numbness of her upper or lower extremities. Family history: Noncontributory Social history: EtOH: None tobacco: None illicit or recreational drugs: None Physical examination: This is an elderly female sitting up in bed. She appears to be comfortable. She is accompanied by a sitter. She is awake and alert. She is oriented to her name only. The patient is Kazakh-speaking only but I am able to communicate with her with the help of a Kazakh-speaking nurse. Language is fluent. Face is symmetric. Extraocular movements are grossly normal. Pupils are equally round and reactive to light bilaterally. Tongue is midline. Shoulder shrugs are symmetric. Muscle bulk and tone is normal bilateral upper and lower extremities. Deep tendon reflexes are 1+ bilateral upper and lower extremities. Sensation to light touch is grossly normal bilateral upper and lower extremities although the patient is not fully cooperative with the exam. Motor strength bilateral upper and lower extremities proximally and distally is at least 4- out of 5. Sensation to light touch in the perineal area is grossly normal. There is no Laci sign present bilaterally. Toes are downgoing bilaterally. Straight leg raise bilaterally more than 30 causes no lower extremity pain. Gait testing has been deferred as the patient does not wish to ambulate at this time. CERVICAL SPINE: Examination of the cervical spine reveals no significant tenderness. There is no neck pain with movement. THORACIC SPINE: Examination of the thoracic spine reveals no tenderness to palpation. LUMBOSACRAL SPINE: Examination of the lumbar spine reveals no significant tenderness to palpation. Imaging: CT lumbar spine without contrast, 10/25/2018: When compared to the CT from 10/18/2018, there is progression of the patient's L1 compression fracture that now appears to be at least moderate compression fracture with a retropulsed fragment causing moderate canal stenosis. The thoracolumbar alignment remains maintained without focal kyphosis. Assessment/plan: This is an elderly female with repeated falls with a previously diagnosed L1 compression fracture a week ago that was recommended to have conservative management by my neurosurgery colleagues, readmitted for falls and altered level of consciousness. As part of his workup the patient had a new CT of the lumbar spine that has redemonstrated her L1 compression fracture with dick e progression of the vertebral body height and retropulsion into the canal. The patient clinically appears to be sensorimotor intact without any significant thoracic or lumbar pain. In addition, it is unclear whether the patient's altered level of consciousness and disorientation is acute versus chronic and this is being further evaluated by neurology. At this point, I would recommend further evaluation and treatment of the patient's altered level of consciousness. The patient is grossly sensorimotor intact in the bilateral lower extremities. I would recommend continuing with the TLSO brace for the time being. The patient can follow up with me in clinic in 2-3 weeks where she will be reevaluated. Given the significant retropulsed fragment into the canal, doing a vertebral augmentation at this point would be considered risky as it can worsen the retropulsion and lead to neurologic deficit. If the patient's compression fracture worsens or if she develops any sensorimotor deficit, she may need to undergo thoracolumbar decompressive surgery and possible posterior instrumented fusion. I have relayed this information to the patient's hospitalist, Dr. Johansen. MARBELLA MCDONNELL MD Oct 28, 2018 23:52
[2018-10-29] VITALS (16 sets, daily range): BP systolic 119–179; BP diastolic 57–79; PULSE 74–89; RESP 15–20
[2018-10-29] MEDS: ACCU-CHEK XX SCH (02:00)
[2018-10-29] MEDS ORDERED: LORAZEPAM 2 MG INJ IV ONE (03:00)
[2018-10-29] MEDS ORDERED: HALOPERIDOL 5 MG INJ IM ONE (03:00)
[2018-10-29] MEDS: PANTOPRAZOLE (EC) 40 MG TAB PO SCH ×2 (05:52→17:56)
[2018-10-29] MEDS: POTASSIUM CHLORIDE 30 MEQ in SOD CHLORIDE 0.9% 1,000 ML IV SCH (07:42)
[2018-10-29] MEDS: hydrALAzine 20 MG INJ IV PRN (07:43)
[2018-10-29] MEDS: INSULIN ASPART [NOVOLOG] 3 ML PEN SC SCH ×7 (08:00→20:49)
[2018-10-29] MEDS: DOCUSATE SODIUM 100 MG CAP PO SCH ×2 (08:33→20:50)
[2018-10-29] MEDS: QUETIAPINE 25 MG TAB PO SCH (08:33)
[2018-10-29] MEDS: SUCRALFATE (100 MG/ML) 10ML CUP PO SCH ×4 (08:33→20:50)
--- NOTE | 2018-10-29 10:32 | PN ---
Date/Time of Note Date/Time of Note DATE: 10/29/18 TIME: 10:12 Assessment/Plan VTE Prophylaxis Risk score (from Nsg)>0 risk: 4 SCD applied (from Ns): Yes Pharmacological prophylaxis: heparin (on hold ) Pharm contraindication: bleeding Lines/Catheters IV Catheter Type (from Nrsg): Peripheral IV Urinary Cath still in place: No Assessment/Plan Hospital Course S: seems more lucid today, but still had to be given haldol and ativan last night, patient impulsive, wants to get up and leave the hospital to go home, but also a fall risk. but her speech is much more lucid Objective : Constitutional: alert, elderly, still requiring sitter Head: atraumatic, normocephalic Neck: non-tender, supple Respiratory: clear to auscultation Cardiovascular: regular rate and rhythm Gastrointestinal: S/ NT / ND / +BS Extremities: no edema, moving all extremities without deficits assessment and plan: 1. Reported Rebecca and coffee ground emesis - No further episodes inhouse, hgb is holding steady as well -appreciate GI input, endoscopy today -patient still encephalopathic and needs screening colonoscopy -hold heparin 2. Encephalopathy: Acute on Chronic -MRI brain reviewed, no acute infarct -ammonia and B12 levels not contributory, RPR pending -Neurology consult obtained, appreciate review and recs -seems to respond to low dose haldol, will switch from Quetiapine to Olanzapine 3. L1 burst fracture, conservatively managed -CT now shows fractures probably worse and slightly more retropulsed fragme nt. CT also shows moderate to severe central canal stenosis -Brace is now at bedside -no obvious new cord findings -Dr. Doss recommends continued conservative mgt with TLSO brace for now and he will follow the patient in his office outpatient -continue PT 4. Type 2 diabetes: (Insulin-dependent): -Adjust insulin as needed 5. Hypertension: BP was in acceptable range -Continue home meds with adjustment as needed 6. transaminitis -acute , cause?, hepatitis serology so far negative -USS? -trend levels Dispo: -Continue to try to wean 1:1 sitter, f/u endoscopy findings Result Diagram: 10/29/18 0531 10/29/18 0531 Results 24hrs Laboratory Tests Test 10/28/18 12:45 3/6/19 13:05 10/28/18 17:15 10/28/18 17:18 Ammonia 16 Bedside Glucose 201 184 Urine Opiates Screen Positive Urine Barbiturates Negative Urine Amphetamines Negative Screen Urine Benzodiazepines Negative Screen Urine Cocaine Screen Negative Urine Cannabinoids Negative Test 10/28/18 20:37 10/29/18 05:31 10/29/18 08:32 Bedside Glucose 131 137 White Blood Count 5.9 # Red Blood Count 3.55 L Hemoglobin 10.9 L Hematocrit 32.6 L Mean Corpuscular Volume 91.8 Mean Corpuscular 30.7 Hemoglobin Mean Corpuscular 33.4 Hemoglobin Concent Red Cell Distribution 12.9 Width Platelet Count 263 Mean Platelet Volume 9.4 Immature Granulocytes % 0.300 Neutrophils % 71.9 Lymphocytes % 13.0 L Monocytes % 11.0 Eosinophils % 3.5 Basophils % 0.3 Nucleated Red Blood 0.0 Cells % Immature Granulocytes # 0.020 Neutrophils # 4.3 Lymphocytes # 0.8 Monocytes # 0.7 Eosinophils # 0.2 Basophils # 0.0 Nucleated Red Blood 0.0 Cells # Sodium Level 138 Potassium Level 4.0 Chloride Level 101 Carbon Dioxide Level 29 Anion Gap 8 Blood Urea Nitrogen 4 L Creatinine 0.52 Est Glomerular Filtrat Rate mL/min Glucose Level 120 # Calcium Level 9.2 Exam/Review of Systems Exam Vitals Vital Signs Date Temp Pulse Resp B/P (MAP) Pulse Ox O2 O2 Flow FiO2 Time Delivery Rate 10/29/18 84 134/65 08:35 (88) 10/29/18 98.9 96 Room Air 07:21 10/29/18 18 03:00 Intake and Output 10/28/18 10/28/18 10/29/18 1515:00 23:00 07:00 IntakeIntake Total 1125 ml 720 ml OutputOutput Total 1000 ml 350 ml BalanceBalance 1125 ml -280 ml -350 ml Results Results 24hrs Laboratory Tests Test 10/28/18 12:45 10/28/18 13:05 10/28/18 17:15 10/28/18 17:18 Ammonia 16 Bedside Glucose 201 184 Urine Opiates Screen Positive Urine Barbiturates Negative Urine Amphetamines Negative Screen Urine Benzodiazepines Negative Screen Urine Cocaine Screen Negative Urine Cannabinoids Negative Test 10/28/18 20:37 10/29/18 05:31 10/29/18 08:32 Bedside Glucose 131 137 White Blood Count 5.9 # Red Blood Count 3.55 L Hemoglobin 10.9 L Hematocrit 32.6 L Mean Corpuscular Volume 91.8 Mean Corpuscular 30.7 Hemoglobin Mean Corpuscular 33.4 Hemoglobin Concent Red Cell Distribution 12.9 Width Platelet Count 263 Mean Platelet Volume 9.4 Immature Granulocytes % 0.300 Neutrophils % 71.9 Lymphocytes % 13.0 L Monocytes % 11.0 Eosinophils % 3.5 Basophils % 0.3 Nucleated Red Blood 0.0 Cells % Immature Granulocytes # 0.020 Neutrophils # 4.3 Lymphocytes # 0.8 Monocytes # 0.7 Eosinophils # 0.2 Basophils # 0.0 Nucleated Red Blood 0.0 Cells # Sodium Level 138 Potassium Level 4.0 Chloride Level 101 Carbon Dioxide Level 29 Anion Gap 8 Blood Urea Nitrogen 4 L Creatinine 0.52 Est Glomerular Filtrat Rate mL/min Glucose Level 120 # Calcium Level 9.2 Medications Medication Current Medications IV Flush (NS 3 ml) 3 ml PER PROTOCOL IV Last administered on 10/28/18 21:41; Admin Dose 3 ML; Start 10/25/18 at 18:00 Ondansetron HCl (Zofran Inj) 4 mg Q6H PRN IV NAUSEA/VOMITING; Start 10/25/18 at 18:00 Acetaminophen (Tylenol Tab) 650 mg Q6H PRN PO .PAIN 1-3 OR TEMP Last administered on 10/25/18 20:49; Admin Dose 650 MG; Start 10/25/18 at 18:00 Acetaminophen/ Hydrocodone Bitart (Blair (5/325)) 1 tab Q6H PRN PO .MOD PAIN 4- 6 Last administered on 10/27/18 23:54; Admin Dose 1 TAB; Start 10/25/18 at 18:00 Docusate Sodium (Colace) 100 mg Q12H PRN PO .CONSTIPATION; Start 10/25/18 at 18:00 Zolpidem Tartrate (Ambien) 5 mg QHS PRN PO .INSOMNIA Last administered on 10/28/18 03:05; Admin Dose 5 MG; Start 10/25/18 at 18:00 Potassium Chloride 30 meq/ Sodium Chloride 1,015 ml @ 60 mls/hr [id number] IV Last administered on 10/29/18 07:42; Admin Dose 60 MLS/HR; Start 10/25/18 at 18:30 Quetiapine Fumarate (Seroquel) 25 mg BID PO Last administered on 10/28/18 20:38; Admin Dose 25 MG; Start 10/25/18 at 21:00 Diagnostic Test (Pha) (Accu-Chek) 1 ea 02 XX Last administered on 10/27/18 02:10; Admin Dose 1 EA; Start 10/26/18 at 02:00 Insulin Aspart (Novolog Insulin Pen) NOVOLOG *MILD* ALGORITHM WITH MEALS BEDTIME SC Last administered on 10/28/18 17:21; Admin Dose 2 UNIT; Start 10/25/18 at 18:30 Miscellaneous Information 1 ea NOTE XX ; Start 10/25/18 at 18:00 Glucose (Glutose) 15 gm Q15M PRN PO DECREASED GLUCOSE; Start 10/25/18 at 18:00 Glucose (Glutose) 22.5 gm Q15M PRN PO DECREASED GLUCOSE; Start 10/25/18 at 18:00 Dextrose (D50w Syringe) 25 ml Q15M PRN IV DECREASED GLUCOSE; Start 10/25/18 at 18:00 Dextrose (D50w Syringe) 50 ml Q15M PRN IV DECREASED GLUCOSE Last administered on 10/26/18 17:33; Admin Dose 50 ML; Start 10/25/18 at 18:00 Glucagon (Glucagen) 1 mg Q15M PRN IM DECREASED GLUCOSE; Start 10/25/18 at 18:00 Glucose (Glutose) 15 gm Q15M PRN BUCCAL DECREASED GLUCOSE; Start 10/25/18 at 18:00 Morphine Sulfate (morphine) 6 mg Q4H PRN PO SEVERE PAIN LEVEL 7-10 Last administered on 10/28/18 03:05; Admin Dose 6 MG; Start 10/26/18 at 14:30 Insulin Aspart (Novolog Insulin Pen) 3 unit WITH MEALS SC Last administered on 10/28/18 17:24; Admin Dose 3 UNIT; Start 10/26/18 at 18:00 Insulin Glargine (Lantus) 7 units QHS SC Last administered on 10/28/18 20:42; Admin Dose 7 UNITS; Start 10/26/18 at 21:00 Sucralfate (Carafate Susp) 1 gm QID PO Last administered on 10/28/18 20:38; Admin Dose 1 GM; Start 10/27/18 at 13:00 Pantoprazole (Protonix Tab) 40 mg BID@06,18 PO Last administered on 10/29/18at 05:52; Admin Dose 40 MG; Start 10/27/18 at 18:00 Docusate Sodium (Colace) 100 mg BID PO Last administered on 10/28/18at 20:38; Admin Dose 100 MG; Start 10/28/18 at 09:00 Heparin Sodium (Porcine) (Heparin (5000 Units/1ml)) 5,000 unit BID SC ; Start 10/29/18 at 21:00 Hydralazine HCl (Apresoline) 10 mg Q4H PRN IV for sbp>170 Last administered on 10/29/18at 07:43; Admin Dose 10 MG; Start 10/29/18 at 03:00 SYLVIE WU Oct 29, 2018 10:22
--- NOTE | 2018-10-29 13:58 | CONS ---
Assessment/Plan Assessment/Plan Hospital Course 82 F c/ multiple comorbidities, who presents for evaluation following a recurrent fall.. She was noted to be confused, for which neurology is consulted... MRI brain is notable for scalp swelling which suggests recent head trauma...which is a likely contributor... Superimposed delirium is possible...with the assumption that she has some degree of cognitive dysfunction at baseline.. UDS + opioids P: Fx management per surgery [place] as necessary Agree w/ seroquel low dose as needed for agitation.. Otherwise, limit sedating medications where possible Other management per primary Will follow clinically Consultation Date/Type/Reason Admit Date/Time Oct 25, 2018 at 13:25 Type of Consult Neurology Reason for Consultation ams Requesting Provider: SYLVIE WU Date/Time of Note DATE: 10/29/18 TIME: 13:58 24 HR Interval Summary Free Text/Dictation Continues acute care. Pt has c/o BLE, lower back pain which worsened after ambulation Exam Vital Signs Vitals Vital Signs Date Temp Pulse Resp B/P (MAP) Pulse Ox O2 O2 Flow FiO2 Time Delivery Rate 10/29/18 84 134/65 08:35 (88) 10/29/18 98.9 96 Room Air 07:21 10/29/18 18 03:00 Intake and Output 10/28/18 10/28/18 10/29/18 1515:00 23:00 07:00 IntakeIntake Total 1125 ml 720 ml OutputOutput Total 1000 ml 350 ml BalanceBalance 1125 ml -280 ml -350 ml Exam PE: Gen Appearance: No Apparent Distress HEENT: Normocephalic Cardiovascular: Regular rate Abdomen: Soft Extremities: Dry NE: The patient was alert though somewhat disoriented... Language was normal... Fund of knowledge was limited. Able to follow simple axial and appendicular commands. Cranial nerve examination was limited by mental status. Pupils were equal and reactive to light. There was no afferent pupillary defect. Funduscopic examination was limited. Face was grossly symmetric, w/ present corneal and cough reflexes. Tone was normal. Muscle bulk was normal. I did not see fasciculations. The samuel ent moved her limbs symmetrically. Coordination and gait testing was limited by mental status. Arm and leg reflexes were symmetric. Traore's sign was absent. Plantar responses were flexor. RYAN BRITTON NP Oct 29, 2018 13:58 YVAN GOODRICH Oct 29, 2018 15:11
[2018-10-29] MEDS ORDERED: PROPOFOL 40 ML ONE (16:25)
[2018-10-29] MEDS ORDERED: LIDOCAINE 2% (SDV) 5 ML INJ ONE (16:25)
--- NOTE | 2018-10-29 16:25 | HPN ---
Date/Time of Note Date/Time of Note DATE: 10/29/18 TIME: 16:25 Interval H&P Admission Note Pt. seen H&P reviewed: No system changes YOANA CONRAD Oct 29, 2018 16:25
--- NOTE | 2018-10-29 16:44 | PAC ---
Date/Time of Note Date/Time of Note DATE: 10/29/18 TIME: 16:44 Post-Anesthesia Notes Post-Anesthesia Note Last documented vital signs Vital Signs Date Temp Pulse Resp B/P (MAP) Pulse Ox O2 O2 Flow FiO2 Time Delivery Rate 10/29/18 97.4 85 18 121/57 96 Room Air 16:34 (78) Activity: WNL Respiratory function: WNL Cardiovascular function: WNL Mental status: Baseline Pain reasonably controlled: Yes Hydration appropriate: Yes Nausea/Vomiting absent: Yes Comments BP:134/67, P:78, Spo2:100%, T:98,8 ADA BUCK MD Oct 29, 2018 16:44
[2018-10-29] MEDS: OLANZAPINE 5 MG TAB PO SCH (20:50)
[2018-10-29] MEDS: HEPARIN 5,000 UNIT/1 ML VIAL SC SCH (20:52)
[2018-10-29] MEDS: INSULIN GLARGINE [LANTus] (100 UNITS/ML) SYG SC SCH (20:53)
[2018-10-30] VITALS (9 sets, daily range): BP systolic 109–183; BP diastolic 53–88; PULSE 72–100; RESP 17–18
[2018-10-30] MEDS: morphine LIQ (10 MG/5 ML) CUP PO PRN ×2 (00:15→11:26)
[2018-10-30] MEDS: ACCU-CHEK XX SCH (01:47)
[2018-10-30] MEDS: hydrALAzine 20 MG INJ IV PRN (01:47)
[2018-10-30] MEDS: PANTOPRAZOLE (EC) 40 MG TAB PO SCH ×2 (06:48→17:43)
[2018-10-30] MEDS: DOCUSATE SODIUM 100 MG CAP PO SCH ×2 (09:04→21:00)
[2018-10-30] MEDS: SUCRALFATE (100 MG/ML) 10ML CUP PO SCH ×4 (09:04→21:00)
[2018-10-30] MEDS: INSULIN ASPART [NOVOLOG] 3 ML PEN SC SCH ×7 (09:05→20:31)
[2018-10-30] MEDS: HEPARIN 5,000 UNIT/1 ML VIAL SC SCH ×2 (09:06→20:48)
[2018-10-30] MEDS: POTASSIUM CHLORIDE 30 MEQ in SOD CHLORIDE 0.9% 1,000 ML IV SCH ×3 (09:16)
--- NOTE | 2018-10-30 13:46 | CONS ---
Assessment/Plan Assessment/Plan Hospital Course 82 F c/ multiple comorbidities, who presents for evaluation following a recurrent fall.. She was noted to be confused, for which neurology is consulted... MRI brain is notable for scalp swelling which suggests recent head trauma...which is a likely contributor... Superimposed delirium is possible...with the assumption that she has some degree of cognitive dysfunction at baseline.. UDS + opioids P: Fx management per surgery Jay Em as necessary Agree w/ seroquel low dose as needed for agitation.. Otherwise, limit sedating medications where possible Other management per primary Will follow clinically Consultation Date/Type/Reason Admit Date/Time Oct 25, 2018 at 13:25 Type of Consult Neurology Reason for Consultation ams Requesting Provider: SYLVIE WU Date/Time of Note DATE: 10/30/18 TIME: 13:46 24 HR Interval Summary Free Text/Dictation Continues acute care. Pt is without complaints today. Awaiting discharge. Exam Vital Signs Vitals Vital Signs Date Temp Pulse Resp B/P (MAP) Pulse Ox O2 O2 Flow FiO2 Time Delivery Rate 10/30/18 98.7 92 18 137/64 96 13:34 (88) 10/29/18 Room Air 17:54 10/29/18 8.0 16:53 Intake and Output 10/29/18 10/29/18 10/30/18 1414:59 22:59 06:59 IntakeIntake Total 775 ml 1100 ml 60 ml OutputOutput Total 150 ml BalanceBalance 625 ml 1100 ml 60 ml Exam PE: Gen Appearance: No Apparent Distress HEENT: Normocephalic Cardiovascular: Regular rate Abdomen: Soft Extremities: Dry NE: The patient was alert though somewhat disoriented... Language was normal... Fund of knowledge was limited. Able to follow simple axial and appendicular commands. Cranial nerve examination was limited by mental status. Pupils were equal and re active to light. There was no afferent pupillary defect. Funduscopic examination was limited. Face was grossly symmetric, w/ present corneal and cough reflexes. Tone was normal. Muscle bulk was normal. I did not see fasciculations. The patient moved her limbs symmetrically. Coordination and gait testing was limited by mental status. Arm and leg reflexes were symmetric. Traore's sign was absent. Plantar responses were flexor. RYAN BRITTON NP Oct 30, 2018 13:46
--- NOTE | 2018-10-30 13:46 | DS ---
Date/Time of Note Date/Time of Note DATE: 10/30/18 TIME: 13:45 Discharge Summary Admission/Discharge Info Admit Date/Time Oct 25, 2018 at 13:25 Discharge Date/Time Discharge Diagnosis 1. Reported Rebecca and coffee ground emesis: s/p EGD, hemorrhagic gastritis on EGD, continue BID PPI 2. Encephalopathy: Acute on Chronic -MRI brain reviewed, no acute infarct -ammonia and B12 levels not contributory, Continue Olanzapine 3. L1 burst fracture, conservatively managed -CT now shows fractures probably worse and slightly more retropulsed fragment. CT also shows moderate to severe central canal stenosis -Dr. Doss recommends continued conservative mgt with TLSO brace for now and he will follow the patient in his office outpatient -continue PT 4. Type 2 diabetes: (Insulin-dependent): Good control in house 5. Hypertension: BP was in acceptable range 6. transaminitis: cause ? , trending down . Consults GI: Dr Matute Neurosurgery : Scotty Doss MD Neurology: Roxana Romo MD . Hospital Course 82-year-old female who was brought back into the hospital for reported coffee- ground emesis after a recent discharge. During the prior admission, she had presented with back pain and she was found to have an L1 burst fracture. At that time she was seen by neurosurgery, recommended for conservative management with TLSO brace and outpatient continued follow-up. It is still somewhat unclear why she was brought back again, the emergency room doctor had documented persistent back pain and recent falls, but the social sciences department chair and housing case manager had gotten from the family that she has been having some black stools and coffee-ground emesis. The patient family at bedside had talked to me about continued lethargy. Essentially she was admitted and worked up in detail. For her back she was seen by neurosurgery who also recommended that since she seemed asymptomatic to continue conservative management and ensure that the brace was the right one. Her hospitalization this time was also complicated by worsening of her baseline confusion. Of note is that patient does have baseline dementia ,buyt seemed further encephalopathic on this admission. She was requiring one-to-one sitter for most of her time in the hospital. She had an MRI of the brain that showed no acute infarct, ammonia and B12 levels were within normal limits. She was seen by neurology as she was started on antipsychotic treatment with improved response. At this time she is being weaned off the sitter and seems to be doing well. For her melanotic stools and coffee-ground emesis report, she was seen by GI. She underwent upper endoscopy and hemorrhagic gastritis and gastric erosions were noted. Recommendation is PPI twice a day and avoid NSAIDs. No biopsies were obtained. Her comorbidities including diabetes and hypertension were monitored and managed as appropriate. She was also noted to have transaminitis, and she underwent hepatitis screen that came back negative, a liver ultrasound was also done that did not really show any concerning findings contributing to this. Her levels have trended down though not back quite back to normal and at this time however the patient is stable for discharge for continued monitoring outpatient. Disposition : For patient to follow-up outpatient with neurosurgery Dr. Scotty Doss, as well as primary care doctor to continue to monitor hepatic function. She is recommended to continue physical therapies at the [facility] facility with a brace for her L1 fracture which was noted by CT to be worsened on this admission, but patient still does not require surgical intervention at this time but may eventually require later in the future. Patient has been evaluated in detail by myself today and is stable for discharge. Disposition is to [facility]. . Home Meds Active Scripts Hydrocodone Bit-Acetaminophen (Hydrocodone Bit-APAP) 5-325MG Tablet, 1 TAB PO Q6H PRN for .MOD PAIN 4-6, #20 TAB Prov:SYLVIE WU 10/20/18 Quetiapine Fumarate* (Seroquel*) 25 Mg Tablet, 25 MG PO BID, #60 TAB Prov:SYLVIE WU 10/20/18 Syringe, Disposable, 1ML (MONOJECT MEGELLAN TB SYRINGE) 1 Each Disp.syrin, EACH MC QHS, #100 Prov:SYLVIE WU 10/20/18 Insulin Glargine* (Lantus*) 100 Unit/Ml Soln, 7 UNIT SC QHS, #3 VIAL 1 Refill Prov:SYLVIE WU 10/20/18 Reported Medications Losartan-Hydrochlorothiazide (Losartan-HCTZ) 100-25 Mg Tab, 1 TAB PO DAILY, TAB 03/10/18 Dapagliflozin Propanediol (Farxiga) 5 Mg Tablet, 5 MG PO DAILY, #30 TAB 03/10/18 Metformin Hcl* (Metformin Hcl*) 1,000 Mg Tablet, 1000 MG PO WITH BREAKFAST DINNE, #60 TAB 03/10/18 Linagliptin (TRADJENTA) 5 Mg Tablet, 5 MG PO DAILY, TAB 03/10/18 Follow-up Plan See hospital course . Primary Care Provider Not On Staff Doctor Time spent on discharge: > 30 minutes Pending Labs Laboratory Tests Test 10/29/18 17:46 10/29/18 20:49 10/30/18 09:03 10/30/18 13:07 Bedside 123 175 103 172 Glucose mg/dL (70-220) mg/dL (70-220) mg/dL (70-220) mg/dL (70-220) SYLVIE WU Oct 30, 2018 13:46
--- NOTE | 2018-10-30 14:23 | RADRPT ---
Vent Rate: 87 bpm RR Interval: 0 msec WV Interval: 158 msec QRS Duration: 96 msec QT Interval: 356 msec QTC Interval: 428 msec P-R-T [place]: 55 - 57 - 83 degrees Normal sinus rhythm Nonspecific T wave abnormality Abnormal ECG Electronically Signed By: Jeremi Copeland
[2018-10-30] MEDS ORDERED: PANT40TA4 PO (15:14)
[2018-10-30] MEDS ORDERED: CARAS PO (15:14)
[2018-10-30] MEDS ORDERED: OLAN5TAB5 PO (15:14)
[2018-10-30] MEDS ORDERED: DOCU-144 PO (15:14)
--- NOTE | 2018-10-30 15:16 | PDOCDIS ---
Discharge Instructions DIAGNOSIS Discharge Diagnosis 1. Reported Rebecca and coffee ground emesis: s/p EGD, hemorrhagic gastritis on EGD, continue BID PPI 2. Encephalopathy: Acute on Chronic -MRI brain reviewed, no acute infarct -ammonia and B12 levels not contributory, Continue Olanzapine 3. L1 burst fracture, conservatively managed -CT now shows fractures probably worse and slightly more retropulsed fragment. CT also shows moderate to severe central canal stenosis -Dr. Doss recommends continued conservative mgt with TLSO brace for now and he will follow the patient in his office outpatient -continue PT 4. Type 2 diabetes: (Insulin-dependent): Good control in house 5. Hypertension: BP was in acceptable range 6. transaminitis: cause ? , trending down . CONDITION [id number] Patient Condition: [id number] Stable HOME CARE INSTRUCTIONS: [id number] Diet Instructions: [id number] Reduced Calorie [id number] Special Diet: [id number] Y: [id number] Activity Restrictions: [id number] Slowly Increase Activity Rest between Activity FOLLOW UP/APPOINTMENTS Follow-up Plan 1. Patient is to f/u with Dr Scotty Doss for lumbar fracture (Neurosurgery) 2. Patient is to have her liver enzymes monitored by PCP . . SYLVIE WU Oct 30, 2018 15:16
[2018-10-30] MEDS: INSULIN GLARGINE [LANTus] (100 UNITS/ML) SYG SC SCH (20:29)
[2018-10-30] MEDS: OLANZAPINE 5 MG TAB PO SCH (21:00)
[2018-10-30] MEDS ORDERED: AMLODIPINE 5 MG TAB PO ONE (21:30)
== END 2018-10-30 22:30 | DRG 378 ==
LOC: E/R 11:08 → 2NE 13:25
PROVIDERS: ADMIT Internal Medicine; ATTEND Internal Medicine
PROC: 0DJ08ZZ Inspection of Upper Intestinal Tract, Via Natural or Artificial Opening Endoscopic (ICD-10-PCS; principal; 2018-10-29 17:30)
DX: K29.71 Gastritis, unspecified, with bleeding (principal); E87.1 Hypo-osmolality and hyponatremia; G93.40 Encephalopathy, unspecified; S32.011D Stable burst fracture of first lumbar vertebra, subsequent encounter for fracture with routine healing; K92.1 Melena; K92.0 Hematemesis; E11.65 Type 2 diabetes mellitus with hyperglycemia; I10 Essential (primary) hypertension; E87.5 Hyperkalemia; D72.829 Elevated white blood cell count, unspecified; W19.XXXA Unspecified fall, initial encounter; Z91.81 History of falling; F03.90 Unspecified dementia, unspecified severity, without behavioral disturbance, psychotic disturbance, mood disturbance, and anxiety; M48.061 Spinal stenosis, lumbar region without neurogenic claudication; R79.89 Other specified abnormal findings of blood chemistry; R41.0 Disorientation, unspecified
CPT/HCPCS: 36415; 70450; 70551; 71045; 72131; 76705; 80048; 80076; 80307; 81001; 82140; 82607; 82962; 83735; 84100; 85025; 86592; 86704; 86709; 86803; 87040; 87086; 87340; 90686; 93005; 96374; 96375; 97110; 97116; 97161; 97530; J0360; J0696; J1630; J1644; J1815; J2060; J2270; J2405; J3480; J7030; J7040; J7050